=== PATIENT | male | born 1945 | race Caucasian/White ===

== ENCOUNTER 2025-04-26 10:49 | Outpatient (AMB) | payer MEDICARE, SELFPAY ==
--- NOTE | 2025-04-26 10:58 | A.OFFPC_ITS ---
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: No Accompanied by: Self / Same As Patient Allergies No Known Allergies Allergy (Verified 04/26/25 11:25) Medication List - Last Reconciled 04/30/25 by MÓNICA Farnsworth atorvastatin 80 mg PO DAILY clopidogrel 75 mg PO DAILY fluoxetine 30 mg PO DAILY furosemide 20 mg PO DAILY loratadine 10 mg PO DAILY metoprolol tartrate 25 mg PO DAILY tamsulosin 0.4 mg PO BEDTIME zolpidem 10 mg PO BEDTIME Tobacco use date assessed: 04/26/25 Fall risk assessment: No Falls in past year Last assessed Fall Risk: 04/26/25 Dental Screening Dental Screen Date: 04/26/25 Did you have a dental visit in the last 12 months?: No Did you have a dental problem in the last 6 months where you did not have access to dental care?: No Was dental information given to patient?: No (Dentures) HPI establish care HPI Details [facility]: [facility], he is going see another person at the [facility] Last visit:reports that his last visit was about a month or 2 ago Last PE: Specialist: OBGYN: Past medical history: pacemaker and valve replacement-not sure which valve it was; this was done a [facility], Depression-see a psychiatrist at the [facility] (Percy Kelley), Reports that he had two stents placed as well Medications: Family HX:Father of a MA at age 79-reports that he has been taking an aspirin everyday ever since Problem: Reports passing out before thanksgiving at home, at [employer] while putting the cart away, reports that he did not 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 Reports that he has not passed out since pacemaker placement. He was also having trouble breathing, but not anymore since interventions. He is having difficulty finding food without salt. Reports a fluctuation in blood pressure and weight, he went from 236 to 240 and has been varying everyday. They told him not to gain more than 5 lbs in a week. He has been weighing himself every and checking his blood pressure every morning. Plastics Scientist: [facility], affiliated with [facility]. The patient has an appt right after this appt, blood pressure was slightly elevated, no changes due to the patient was rushing for this appt and he is going to see his locomotive inspector after, who knows the patient longer and could changes if needs be. States that he has sleep apnea very bad but he gave his CPAP away because he could sleep with it. He gave it to someone who needs it more than he did. 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 No sob/chest pain or dizziness Denies palpitations Ongoing increased urination at night-he is on lasix 20 mg daily and has BPH [facility] Medical History (Updated 04/30/25 @ 19:33 by MÓNICA Farnsworth) HTN (hypertension) Insomnia Sleep apnea Depression Bradycardia Family History (Updated 04/30/25 @ 19:02 by MÓNICA Farnsworth) Father Myocardial infarction Social History Housing: House Patient Tobacco Use Status: Never used Tobacco e-Cigarette/Vaping Use: Never Used service: Yes Current occupational status: retired and disabled Cognitive needs: No Hearing needs: No Vision needs: No Questionnaire PHQ-9 Over the last 2 weeks, how often have you been bothered by any of the following problems? 1. Little interest or pleasure in doing things: not at all 2. Feeling down, depressed, or hopeless: not at all 3. Trouble falling or staying asleep, or sleeping too much: several days 4. Feeling tired or having little energy: several days 5. Poor appetite or overeating: not at all 6. Feeling bad about yourself - or that you are a failure or have let yourself or your family down: not at all 7. Trouble concentrating on things, such as reading the newspaper or watching television: not at all 8. Moving or speaking so slowly that other people could have noticed. Or the opposite - being so fidgety or restless that you have been moving around a lot more than usual: not at all 9. Thoughts that you would be better off or of hurting yourself in some way: not at all Total score: 2 Depression Screening Interpretation: Negative Depression Screening Done: Yes 36057 - PHQ-9 Billing: Yes Source: Developed by Drs. Carlos Chester, Annemarie Whitt, Sebastien Vazquez and colleagues, with an educational christine from [employer]. Thrive Questionnaire Date Thrive assessed: 04/26/25 I am a: Patient What is your living situation today?: I have a steady place to live Within the past 12 months, did the food you bought not last and you didn't have the money to get more?: Never true Within the past 12 months, did you worry whether your food would run out before you got money to buy more?: Never true Do you have trouble paying for medicines?: No Do you have trouble getting transportation to medical appointments?: No Do you have trouble paying your heating and electricity bill?: No Do you have trouble taking care of your child, family member or friend?: No Do you have trouble with day-to-day activities such as bathing, preparing meals, shopping, managing finances, etc.?: No Are you currently unemployed and looking for a job?: No Are you interested in more education?: No Please select the resources that you would like help with: None Currently or been in a relationship where the following occur: No concerns reported THRIVE Score: 0 AUDIT C Alcohol Use Questionnaire (AUDIT-C) 1. How often do you have a drink containing alcohol?: Never 3. How often do you have six or more drinks on one occasion?: Never Total Score: 0 MARQUISE-7 AMB Questionnaire MARQUISE-7 Date MARQUISE - 7 assessed: 04/26/25 Feeling nervous, anxious, or on edge: 0 = Not at all Not being able to stop or control worryin = Not at all Worrying too much about different things: 0 = Not at all Trouble relaxin = Not at all Being so restless that it is hard to sit still: 0 = Not at all Becoming easily annoyed or irritable: 0 = Not at all Feeling afraid as if something awful might happen: 0 = Not at all Total MARQUISE-7 score (0-4 normal; 5-9 mild; 10-14 moderate; 15-21 severe): 0 Source: Developed by Drs. Carlos Chester, Annemarie Whitt, Sebastien Vazquez and colleagues, with an educational christine from [employer]. MARQUISE-7 Assessment Billing MARQUISE-7 Assessment Tool: MARQUISE-7 Assessment 38175 Review of Systems Const Reports difficulty sleeping and Denies headache(s) Eyes Denies loss of vision ENT Denies vertigo, Denies dizziness, Denies headache(s) and Denies sore throat Card Denies chest pain, Denies leg edema and Denies lightheadedness Resp Denies cough, Denies hemoptysis and Denies wheezing GI Denies abdominal pain, Denies melena, Denies constipation, Denies diarrhea and Denies vomiting Denies dysuria, Reports nocturia, Denies urinary frequency and Denies urinary urgency Musc Denies arthralgias, Denies joint swelling, Denies numbness and Denies tingling Neuro Denies Abnormal speech present, Denies behavioral changes, Denies vertigo, Denies dizziness, Denies headache(s), Denies loss of vision, Denies memory loss, Denies numbness and Denies tingling Psych Denies anxiety, Denies behavioral changes, Reports depression (History improved on treatment), Denies memory loss and Denies panic attacks Greg/Lymph Denies easy bleeding and Denies easy bruising Aller/Immun Denies wheezing Physical exam (Primary Care) Vital Signs: Last Vital Signs Temp 97.3 F 04/26/25 10:59 Pulse 69 04/26/25 10:59 BP 148/82 H 04/26/25 10:59 Pulse Ox 93 04/26/25 10:59 Oxygen Delivery Method Room Air 04/26/25 10:59 BMI result Body Mass Index 37.9 Tobacco/Smoking Status: Tobacco use Status Tobacco use date assessed 04/26/25 04/26/25 11:08 Patient Tobacco Use Status Never used Tobacco 04/26/25 11:08 e-Cigarette/Vaping Use Never Used 04/26/25 11:08 PHQ-9: PHQ-9 Score PHQ-9: Total score 2 04/26/25 11:39 Depression Screening Interpretation: Negative Thrive Assessment: Date of Thrive Assessment Date Thrive assessed 04/26/25 04/26/25 11:08 Currently or been in a relationship where the following occur: No concerns reported Const General: healthy appearing, no acute distress, alert and awake Nutritional Appearance: well nourished Orientation/consciousness: oriented to person, oriented to place and oriented to time HENMT Ears: TM's normal bilaterally General nose exam: Normal nasal mucous membranes and turbinates present Eyes Conjunctivae: conjunctivae normal Sclerae: sclerae normal Pupils: Equal, round and reactive pupils present Neck Neck: Yes no lymphadenopathy and Yes no JVD Thyroid: Thyroid normal Carotids: no bruits Resp Effort & Inspection: normal respiratory effort and not tachypneic Auscultation: no crackles, no rales, no rhonchi and no wheezes Cardio Rate: regular rate Rhythm: regular rhythm Heart sounds: no murmurs and normal S1 and S2 GI Palpation (GI): Soft to palpation, nontender, no hepatomegaly and no splenomegaly Auscultation: normal bowel sounds Skin General skin exam: no rashes or lesions noted and dry skin Neuro General: oriented to person, oriented to place and oriented to time Cranial nerves: Yes Equal, round and reactive pupils present Speech: No Abnormal speech present Gait exam (Neuro): Normal gait present Motor exam (neuro): no tremor noted Extrem Right upper extremity: full ROM Left upper extremity: full ROM Right lower extremity: full ROM; no edema Left lower extremity: full ROM; no edema Psych Mental Status: mental status grossly normal Speech and movement: Normal speech and movement present Affect: normal affect Attitude: cooperative Thought process: Normal thought process present Coding Level of Care Code New Pt Level 4 (66113) Diagnoses Pacemaker Z95.0 Coronary artery disease involving [place] heart without angina pectoris, unspecified vessel or lesion type I25.10 Coronary Disease-Associated Artery/Lesion type: unspecified vessel or lesion type [place] vs. transplanted heart: [place] heart Associated angina: without angina Heart failure, unspecified HF chronicity, unspecified heart failure type I50.9 Heart failure type: unspecified Heart failure chronicity: unspecified Hypertension, unspecified type I10 Hypertension type: unspecified Depression, unspecified depression type F32.A Depression Type: unspecified Benign prostatic hyperplasia, unspecified whether lower urinary tract symptoms present N40.0 Lower urinary tract symptom presence: unspecified whether lower urinary tract symptoms present Insomnia, unspecified type G47.00 Insomnia type: unspecified Sleep apnea, unspecified type G47.30 Sleep apnea type: unspecified type Additional Codes MARQUISE-7 Assessment Billing - MARQUISE-7 Assessment Tool: MARQUISE-7 Assessment 23397 ([id number]) PHQ-9 - 46009 - PHQ-9 Billing: Yes ([id number]) Time Spent (min) 45 Assessment & Plan Assessment & Plan (1) Pacemaker: Code(s): Z95.0 - Presence of cardiac pacemaker Category: Medical Plan: Reports history of bradycardia that resulted multiple syncope episodes. (2) CAD (coronary artery disease): Code(s): I25.10 - Atherosclerotic heart disease of [place] coronary artery without angina pectoris Category: Medical Qualifiers: Coronary Disease-Associated Artery/Lesion type: unspecified vessel or lesion type [place] vs. transplanted heart: [place] heart Associated angina: without angina Qualified Code(s): I25.10 - Atherosclerotic heart disease of [place] coronary artery without angina pectoris Plan: The patient is unclear on the specifics. Reports receiving 2 stents unsure of placement location and reason why they were placed, we will wait for the patient records for further determination. He is followed by [facility] Cardiology and has an appointment after this visit Continue atorvastatin 80 mg daily, clopidogrel 75 mg daily, metoprolol tartrate 25 mg daily (3) Heart failure: Code(s): I50.9 - Heart failure, unspecified Category: Medical Qualifiers: Heart failure type: unspecified Heart failure chronicity: unspecified Qualified Code(s): I50.9 - Heart failure, unspecified Plan: Reports that he was told to not gain more than 5 lb in a week and was placed on Lasix 20 mg daily Suspect that the patient has heart failure, however he was not completely sure about this, awaiting records to clarify. No pedal or lower leg edema. Continue furosemide 20 mg daily. The patient reports recent labs through the [facility], he plans obtaining these labs or having his records sent to us. A comprehensive set of labs ordered to further evaluate (4) HTN (hypertension): Code(s): I10 - Essential (primary) hypertension Category: Medical Qualifiers: Hypertension type: unspecified Qualified Code(s): I10 - Essential (primary) hypertension Plan: Blood pressure is 148/82 in office. Reports med compliance. Reinforced dash diet No changes made to medication; the patient we will be seeing Cardiology after this appointment. We will defer to Cardiology to make changes, due to meeting the patient for the 1st time and he is unclear of his diagnosis and treatment planned. Continue metoprolol tartrate 25 mg daily and furosemide 20 mg daily (5) Depression: Code(s): F32.A - Depression, unspecified Category: Medical Qualifiers: Depression Type: unspecified Qualified Code(s): F32.A - Depression, unspecified Plan: Encouraged CBT Continue fluoxetine 30 mg daily Follow up with Psychiatry as scheduled ([facility]cy Kelley at the [facility]) (6) BPH (benign prostatic hyperplasia): Code(s): N40.0 - Benign prostatic hyperplasia without lower urinary tract symptoms Category: Medical Qualifiers: Lower urinary tract symptom presence: unspecified whether lower urinary tract symptoms present Qualified Code(s): N40.0 - Benign prostatic hyperplasia without lower urinary tract symptoms Plan: Continue tamsulosin 0.4 mg p.o. at bedtime (7) Insomnia: Code(s): G47.00 - Insomnia, unspecified Category: Medical Qualifiers: Insomnia type: unspecified Qualified Code(s): G47.00 - Insomnia, unspecified Plan: Sleep hygiene: Exercise regularly, but not within 4 hour of bedtime. Limit fluid intake and avoid large meals in the evening hours. Limit overall caffeine, tobacco, and alcohol intake; no night cap. Maintain a regular sleep- wake cycle without naps in the daytime. Lie down to sleep only when feeling sleepy; leave the bed if unable to fall asleep within 20 minutes; stay in bed for only the hours actually sleeping(but not less than 5 hour in 24 hours). Continue zolpidem 10 mg at bedtime (8) Sleep apnea: Code(s): G47.30 - Sleep apnea, unspecified Category: Medical Qualifiers: Sleep apnea type: unspecified type Qualified Code(s): G47.30 - Sleep apnea, unspecified Plan: Reports difficulty using CPAP machine, so he gave it away to someone who needed it more than he did. Unclear if this is part of the reason for the patient insomnia. He is adamant about sleeping better without the CPAP machine and that his sleeping issues is solely related to not having the right regimen. Plan Labs were ordered for the patient to complete as soon as possible to further evaluate his conditions. Patient to return in 3 months for evaluation of his chronic conditions. Orders: Orders Complete Blood Count Auto Diff 04/26/25 Z00.00 - Encounter for general adult medical examination without abnormal findings UA CC w/rflx Micro + Cult 04/26/25 Z00.00 - Encounter for general adult medical examination without abnormal findings TSH reflex Free T4 04/26/25 Z00.00 - Encounter for general adult medical examination without abnormal findings Vitamin D 25-OH Total 04/26/25 Z00.00 - Encounter for general adult medical examination without abnormal findings Glucose Fasting 04/26/25 Z00.00 - Encounter for general adult medical examination without abnormal findings Comprehensive [place]. Panel Fast 04/26/25 Z00.00 - Encounter for general adult medical examination without abnormal findings Lipid Panel 04/26/25 Z00.00 - Encounter for general adult medical examination without abnormal findings Medications: New furosemide 20 mg PO DAILY 30 tabs 2RF
[2025-04-26 10:59] VITALS: BP 148/82; PULSE 69; TEMP 36.3; O2SAT 93; BMI 37.9
== END 2025-04-26 11:52 | disposition home or self-care (01) ==
LOC: HO.HMCH 10:49
DX: I11.0 Hypertensive heart disease with heart failure (principal); I50.9 Heart failure, unspecified; Z95.0 Presence of cardiac pacemaker; I25.10 Atherosclerotic heart disease of native coronary artery without angina pectoris; F32.A Depression, unspecified; N40.0 Benign prostatic hyperplasia without lower urinary tract symptoms; G47.00 Insomnia, unspecified; G47.30 Sleep apnea, unspecified

== ENCOUNTER → 2025-04-26 10:49 | Outpatient (BNVA) | payer MEDICARE, SELFPAY | DX: I25.10 Atherosclerotic heart disease of native coronary artery without angina pectoris (principal); I11.0 Hypertensive heart disease with heart failure; I50.9 Heart failure, unspecified; F32.A Depression, unspecified; N40.0 Benign prostatic hyperplasia without lower urinary tract symptoms; G47.00 Insomnia, unspecified; G47.30 Sleep apnea, unspecified; Z79.899 Other long term (current) drug therapy; Z95.0 Presence of cardiac pacemaker | CPT/HCPCS: 96127; 99202 ==

== ENCOUNTER 2025-07-27 09:49 | Outpatient (AMB) | payer MEDICARE, SELFPAY ==
--- OUTSIDE RECORDS SUMMARY | 2024-11-09 07:30 | XMS_ITS | Encounter Summary ---
Author Name [facility] [place] Organization [facility] [place] Address [address] [place] [id number] Care Team Providers Care Scada Engineer Name Role Phone TAO CEE Primary Care Provider Unavailabl e Insurance Providers: All historical and current Section Date Range: From patient's date of to the date document was created. This section includes the names of all active insurance providers for the patient. Insurance Provider Type of Coverage Plan Name Start of Policy Coverage End of Policy Coverage Group Number Member ID Insurance Provider's Telephone Number Policy Delacruz's Name Patient's Relationship to Policy Delacruz [facility] (WNR) MEDICARE ADVANTAGE [facility] ([facility]) Feb 29, 2012 [id number] E[address] SCHNEIDER JR PATIENT Selected Encounter This section includes the information on record at [place] for the Encounter. Date/Time Encounter Type Encounter Description Reason Provider Source Nov 09, 2024 11:30 AM OFFICE O/P EST HI 40 MIN PRIMARY CARE/MEDICINE ICD-10-CM K70.30 Alcoholic cirrhosis of liver without ascites TAO CEE Encounter Template Text not used by [place] Assessments - Encounter Diagnoses This section includes the primary and secondary diagnoses documented for the Encounter. Date/Time Primary/Secondary Diagnosis Diagnosis Name Provider Source Nov 26, 2024 04:42 PM PRIMARY Alcoholic cirrhosis of liver without ascites TAO CEE Nov 26, 2024 04:42 PM SECONDARY Alcohol dependence, in remission TAO CEE Nov 26, 2024 04:42 PM SECONDARY Alcoholic fibrosis and sclerosis of liver TAO CEE [place] Nov 26, 2024 04:42 PM SECONDARY Hepatic fibrosis with hepatic sclerosis TAO CEE [place] Nov 26, 2024 04:42 PM SECONDARY Syncope and collapse TAO CEE [place] Plan of Treatment: Future Appointments (+ 6 months) and Future Tests (+/- 45 days) The Plan of Treatment section includes future care activities for the patient from all [place] [facility]. This section includes future appointments and future orders which are active, pending or scheduled. Future Appointments This section includes appointments that were scheduled to occur 6 months from the date of the Encounter, up to a maximum of 20 appointments. The data comes from all [facility] facilities. Appointment Date/Time Appointment Type Appointme nt Facility Name Nov 16, 2024 04:00 PM AMBULATORY - [place]ICINE [place] [facility] [place] [facility] Nov 16, 2024 04:30 PM AMBULATORY - MEDICINE [place] [facility] [place] [facility] Dec 02, 2024 09:00 AM AMBULATORY - NONE [place] [facility] [place] [facility] Dec 05, 2024 10:30 AM AMBULATORY - NONE [place] [facility] [place] [facility] Jan 03, 2025 11:15 AM AMBULATORY - MEDICINE [place] [facility] [place] [facility] Jan 17, 2025 02:10 PM AMBULATORY - MEDICINE [place] [facility] [place] [facility] Feb 23, 2025 10:00 AM AMBULATORY - MEDICINE [facility] April 05, 2025 10:00 AM AMBULATORY - PSYCHIATRY [facility] April 10, 2025 10:30 AM AMBULATORY - MEDICINE [facility] Vital Signs: All taken on the encounter date This section contains inpatient and outpatient Vital Signs collected on the date of the Encounter. Date/Time Temperature Pulse Blood Pressure Respiratory Rate SP02 Pain Height Weight Body Mass Index Source Nov 09, 2024 11:41 AM 97.9 80 135/81 19 95 67 248 39 [facility] IE Social History: Smoking Status (Most current) and Tobacco Use (All prior to encounter date) This section includes the most current, and the historical, smoking and tobacco- related health factors from the [place] facility where the Encounter took place. Current Smoking Status This section includes the most current smoking, or tobacco-related health factor, from the [place] facility where the Encounter took place. Date/Time Current Smoking Status Comment Nettie ity March 31, 2022 10:00 AM VA-TOBACCO NEVER USED [facility] Tobacco Use History This section includes a history of the smoking, or tobacco-related health factors, that were collected on or before the date of the Encounter. The data comes from the [place] facility where the Encounter took place. Date/Time Smoking Status/Tobacco Use Comment F acility April 17, 2021 02:00 PM VA-TOBACCO NEVER USED [facility] Feb 29, 2020 07:04 PM VA-TOBACCO NEVER USED [facility] Dec 03, 2018 09:47 AM VA-TOBACCO NEVER USED [facility] April 05, 2018 09:02 AM LIFETIME NON-TOBACCO USER [facility] April 14, 2017 04:22 PM LIFETIME NON-TOBACCO USER [facility] March 31, 2016 01:02 PM LIFETIME NON-TOBACCO USER [facility] Nov 18, 2010 01:13 PM LIFETIME NON-TOBACCO USER [facility] Advance Directives: All historical and current Section Date Range: From patient's date of to the date document was created. This section includes ALL of a patient's completed or amended [place] Advance and Rescinded Directives. The entries below indicate that a directive exists for the patient, but an actual copy is not included with this document. The data comes from all [place] facilities. Date Advance Directives Provider Source Jan 20, 2025 ADVANCE DIRECTIVE GENNA MELENDEZ Radiology Reports: +/- 30 days of the encounter Radiology Reports For cases when an order for radiology services may have been completed prior to the date of the Encounter, the report list includes the Radiology Reports that were completed up to 30 days before dateof the Encounter. For cases when an order for radiology services may have been completed after the date of the Encounter, the report list also includes the Radiology Reports that were completed up to30 days after date of the Encounter. The data comes from all [place] treatment facilities. Date/Time Radiology Report Provider Source Dec 05, 2024 10:22 AM DUPLEX SCAN: NON-I NVAS. CAROTID IMAGING: EILEEN SCHNEIDER [id number] -1945 M Exm Date: DEC 05, 2024@10:22 Req Phys: TAO CEE Loc: CWM/SO/PACT 7 (Req'g Loc) Img Loc: ULTRASOUND Service: [facility] [place] [address] (Case 31 COMPLETE) DUPLEX SCAN: NON-INVAS. CAROTID I(US Detailed) CPT:39551 Reason for Study: recent syncopal episode Clinical History: Report Status: Verified Date Reported: DEC 05, 2024 Date Verified: DEC 05, 2024 Efficiency Engineer E-Sig:/ES/DIANA COLLINS Report: Accession number: [id number] Exam: EXTRACRANIAL BILAT STUDY Comparison\H\:\N\ No direct comparison available. Reason for Study: recent syncopal episode. FINDINGS\H\:\N\ Multiple sonographic images of the carotid arteries. RIGHT: Atherosclerotic plaque at the distal common carotid artery, and proximal internal and external carotid arteries. Proximal common carotid peak systolic velocity: 78 cm/s, end diastolic velocity: 12 cm/s Distal common carotid peak systolic velocity: 50 cm/s, end diastolic velocity: 9 cm/s Proximal internal carotid peak systolic velocity: 60 cm/s, end diastolic velocity: 13 cm/s Distal internal carotid peak systolic velocity: 59 cm/s, end diastolic velocity: 17 cm/s Internal carotid/common carotid peak systolic velocity ratio: 0.8 External carotid artery peak systolic velocity: 101 cm/s, end diastolic velocity: 12 cm/s Vertebral artery peak systolic velocity: 31 cm/s, end diastolic velocity: 11 cm/s, antegrade LEFT: Atherosclerotic plaques at the distal common carotid artery, and proximal internal and external carotid arteries. Proximal common carotid peak systolic velocity: 91 cm/s, end diastolic velocity: 22 cm/s Distal common carotid peak systolic velocity: 75 cm/s, end diastolic velocity: 21 cm/s Proximal internal carotid peak systolic velocity: 129 cm/s, end diastolic velocity: 27 cm/s Distal internal carotid peak systolic velocity: 115 cm/s, end diastolic velocity: 27 cm/s Internal carotid/common carotid peak systolic velocity ratio: 1.4 External carotid artery peak systolic velocity: 183 cm/s, end diastolic velocity: 17 cm/s Vertebral artery peak systolic velocity: 45 cm/s, end diastolic velocity: 15 cm/s, antegrade Impression: Right carotid atherosclerosis with less than 50% right internal carotid artery stenosis. Left carotid atherosclerosis with 50-60% left internal carotid artery stenosis. Report signed on: 12/05/2024 3:31 PM Primary Diagnostic Code: No immediate attention required Primary Interpreting Staff: DIANA COLLINS, Staff Physician (Efficiency Engineer) / DIANA COLLINS [place] [facility] Encounter Notes: All associated encounter notes This section contains the clinical notes associated to the Encounter. Date/Time Encounter Note(s) Provider Source Dec 09, 2024 11:24 AM ADDENDUM: LOCAL TITLE: Addendum STANDARD TITLE: ADDENDUM DATE OF NOTE: DEC 09, 2024@11:24:18 ENTRY DATE: DEC 09, 2024@11:24:19 AUTHOR: JOANNA ROMO EXP COSIGNER: URGENCY: STATUS: COMPLETED The [place] has not been contacted about the results of his echo and the reason for Cardiology referral. Plese contact him to discusss, thank you. /reji/ JOANNA ROMO RN Referral Coordination Initiative Nurse Signed: 12/09/2024 11:25 Receipt Acknowledged By: 12/09/2024 13:34 /reji/ ERIK COOLEY CERTIFIED NURSE PRACTITIONER 12/09/2024 14:52 /reji/ KAYLA SANDY RN REGISTERED NURSE --- Original Document --- 11/09/24 NURSE PRACTITIONER OUTPATIENT NOTE: PRIMARY CARE VISIT EILEEN SCHNEIDER, is a 79 y/o WHITE MALE [place] who [facility] today [facility] the [place] [facility]. TYPE OF VISIT: Face to face Accompanied by daughter today. HPI: recently hospitalized for syncope - diagnostics showed mild decrease in platelets, CT showed cirhosis and portal HTN. CT also showed mass of brain - uncertain etiology but possible meningioma not r/o. Denies PEÑA, changes in vision or cognition. States he had N/V and passed out, hit head prior to going to ED. Has been having frequent nosebleeds over past couple of months. Reports abdominal bloating and fullness, no pain or N/V today. BM normal. Previous abdominal US 12/25/20 showed liver fibrosis. Labs 08/25/24 - AST 63, TG 160, otherwise wnl. Hx ETOH, quit 2018. Non smoker. Recent labs reviewed and all medications were reconciled during this visit. 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 Obese. Mental Status: Alert and oriented x4. Head: Normocephalic, atraumatic. Eyes: PERRL. EOMI. Anicteric sclerae. Neck: Supple. No JVD. No lymphadenopathy. No carotid bruit. Thyroid unremarkable. Lungs: CTAB. Normal chest excursion. Eupneic respirations. CV: Heart tones S1, S2. RRR. 3/6 NICOLE. No peripheral edema. GI: Abdomen is distended, mild ascites noted, nontender. No palpable mass or organomegaly. BS x 4 normal. : No CVA tenderness. Neuro: CN II through XII grossly intact. Normal speech. No tremors. Normal gait. Psych: Normal mood and affect. Normal judgment. Cooperative with exam, follows commands. ALLERGIES: Patient has answered [facility] [employer] - see end of note PREVENTIVE MEDICINE GOALS Medication Reconciliation DUE NOW (Optional) Whole Health Documentation DUE NOW ASSESSMENT/PLAN: Active problems - Computerized Problem List is the source for the followin. syncope - CT showed possible meningioma. PET, carotid US and Echo ordered. Referral made to neurology. 2. cirrhosis, liver fibrosis - PET ordered, referral made to hepatology. 3. H/O: alcoholism. Quit 2018 4. Liver function tests abnormal - see above. FOLLOW UP: Return to clinic as noted below and/or sooner PRN UPCOMING APPOINTMENTS: 12/28/2024 11:00 SPOPC/MHC/[facility] 02/23/2025 10:00 CWM/SO/PACT 7 10/09/2025 11:00 NHM/OPTOMETRY/BORASKI No barriers noted; patient understands and agrees to current treatment plan. If patient has any questions, concerns or changes in current health status he/she will call or come in to the VA. A total of 45 minutes were spent F2F with the patient during this encounter and over half that time was spent on counseling and coordination of care. We discussed in depth all current health conditions and management of these conditions. HM: Medication Reconciliation: Outpatient: Has the patient been taking medications as documented in the EMLR? YES: The patient has been taking medications as documented in the EMLR. Essential Medication List for Review used to complete this medication reconciliation. INCLUDED IN THIS LIST: Alphabetical list of active outpatient prescriptions dispensed from this [facility] (local) and dispensed from another [place] or [facility] facility (remote) as well as inpatient orders (local, pending and active), local clinic medications, locally documented non-VA medications, and local prescriptions that have or been discontinued in the past 90 days. - All changes in medications, including all non-VA/Herbal/OTC medications were entered into CPRS. - If there were any medications the patient should no longer take, they were discontinued. - The patient/caregiver was instructed to update this list, discard old lists, and take this list to the next appointment, whether with a VA or non-VA provider. /ERIK Anderson CERTIFIED NURSE PRACTITIONER Signed: 11/26/2024 16:42 12/03/2024 ADDENDUM STATUS: COMPLETED Please notify patient his echo showed severe stenosis of one his his heart valves. I have made a referral to cardiology. /ERIK Anderson CERTIFIED NURSE PRACTITIONER Signed: 12/03/2024 13:54 12/09/2024 ADDENDUM STATUS: COMPLETED Called and spoke to . Forwarded PCP's message. understands and agrees with follow up treatment plan. /reji/ KAYLA SANDY RN REGISTERED NURSE Signed: 12/09/2024 14:52 JOANNA ROMO Nov 09, 2024 12:03 PM PRIMARY CARE NURSE PRACTITIONER OUTPATIENT NOTE: LOCAL TITLE: NURSE PRACTITIONER OUTPATIENT NOTE STANDARD TITLE: PRIMARY CARE NURSE PRACTITIONER OUTPATIENT NOTE DATE OF NOTE: NOV 09, 2024@12:03 ENTRY DATE: NOV 09, 2024@12:03:43 AUTHOR: TAO CEE EXP COSIGNER: URGENCY: STATUS: COMPLETED NURSE PRACTITIONER OUTPATIENT NOTE Has ADDENDA PRIMARY CARE VISIT EILEEN SCHNEIDER, is a 79 y/o WHITE MALE [place] who [facility] today at the [place] [facility]. TYPE OF VISIT: Face to face Accompanied by daughter today. HPI: recently hospitalized for syncope - diagnostics showed mild decrease in platelets, CT showed cirhosis and portal HTN. CT also showed mass of brain - uncertain etiology but possible meningioma not r/o. Denies PEÑA, changes in vision or cognition. States he had N/V and passed out, hit head prior to going to ED. Has been having frequent nosebleeds over past couple of months. Reports abdominal bloating and fullness, no pain or N/V today. BM normal. Previous abdominal US 12/25/20 showed liver fibrosis. Labs 08/25/24 - AST 63, TG 160, otherwise wnl. Hx ETOH, quit 2018. Non smoker. Recent labs reviewed and all medications were reconciled during this visit. 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 Obese. Mental Status: Alert and oriented x4. Head: Normocephalic, atraumatic. Eyes: PERRL. EOMI. Anicteric sclerae. Neck: Supple. No JVD. No lymphadenopathy. No carotid bruit. Thyroid unremarkable. Lungs: CTAB. Normal chest excursion. Eupneic respirations. CV: Heart tones S1, S2. RRR. 3/6 NICOLE. No peripheral edema. GI: Abdomen is distended, mild ascites noted, nontender. No palpable mass or organomegaly. BS x 4 normal. : No CVA tenderness. Neuro: CN II through XII grossly intact. Normal speech. No tremors. Normal gait. Psych: Normal mood and affect. Normal judgment. Cooperative with exam, follows commands. ALLERGIES: Patient has answered [facility] [employer]INTENANCE - see end of note PREVENTIVE MEDICINE GOALS Medication Reconciliation DUE NOW (Optional) Whole Health Documentation DUE NOW ASSESSMENT/PLAN: Active problems - Computerized Problem List is the source for the followin. syncope - CT showed possible meningioma. PET, carotid US and Echo ordered. Referral made to neurology. 2. cirrhosis, liver fibrosis - PET ordered, referral made to hepatology. 3. H/O: alcoholism. Quit 2018 4. Liver function tests abnormal - see above. FOLLOW UP: Return to clinic as noted below and/or sooner PRN UPCOMING APPOINTMENTS: 12/28/2024 11:00 SPOPC/MHC/[place] 02/23/2025 10:00 CWM/SO/PACT 7 10/09/2025 11:00 NHM/OPTOMETRY/BORASKI No barriers noted; patient understands and agrees to current treatment plan. If patient has any questions, concerns or changes in current health status he/she will call or come in to the VA. A total of 45 minutes were spent F2F with the patient during this encounter and over half that time was spent on counseling and coordination of care. We discussed in depth all current health conditions and management of these conditions. HM: Medication Reconciliation: Outpatient: Has the patient been taking medications as documented in the EMLR? YES: The patient has been taking medications as documented in the EMLR. Essential Medication List for Review used to complete this medication reconciliation. INCLUDED IN THIS LIST: Alphabetical list of active outpatient prescriptions dispensed from this VA (local) and dispensed from another [place] or [facility] facility (remote) as well as inpatient orders (local, pending and active), local clinic medications, locally documented non-VA medications, and local prescriptions that have or been discontinued in the past 90 days. - All changes in medications, including all non-VA/Herbal/OTC medications were entered into CPRS. - If there were any medications the patient should no longer take, they were discontinued. - The patient/caregiver was instructed to update this list, discard old lists, and take this list to the next appointment, whether with a VA or non-VA provider. /reji/ ERIK COOLEY CERTIFIED NURSE PRACTITIONER Signed: 11/26/2024 16:42 12/03/2024 ADDENDUM STATUS: COMPLETED Please notify patient his echo showed severe stenosis of one his his heart valves. I have made a referral to cardiology. /ERIK Anderson CERTIFIED NURSE PRACTITIONER Signed: 12/03/2024 13:54 12/09/2024 ADDENDUM STATUS: COMPLETED The [place] has not been contacted about the results of his echo and the reason for Cardiology referral. Plese contact him to discusss, thank you. /reji/ JOANNA ROMO RN Referral Coordination Initiative Nurse Signed: 12/09/2024 11:25 Receipt Acknowledged By: 12/09/2024 13:34 /reji/ ERIK COOLEY CERTIFIED NURSE PRACTITIONER 12/09/2024 14:52 /reji/ KAYLA SANDY RN REGISTERED NURSE 12/09/2024 ADDENDUM STATUS: COMPLETED Called and spoke to [place]. Forwarded PCP's message. [place] understands and agrees with follow up treatment plan. /reji/ KAYLA SANDY RN REGISTERED NURSE Signed: 12/09/2024 14:52 TAO CEE
--- OUTSIDE RECORDS SUMMARY | 2024-12-02 13:00 | XMS_ITS | Encounter Summary ---
Author Name [facility] of [place] [place] Organization [place] Address [address] [place] [address] Care Team Providers Care Cut Off Machine Helper Name Role Phone TAO CEE Primary Care [...] Name Patient's Relationship to Policy Delacruz [facility] ([facility]) MEDICARE ADVANTAGE [facility] ([facility]) Feb 29, 2012 [id number] EILEEN SCHNEIDER JR PATIENT Selected Encounter This section includes the information on record at [place] for the Encounter. Date/Time Encounter Type Encounter Description Reason Provider Source Dec 02, 2024 05:00 PM OFF/OP EST MARCH X REQ PHY/QHP CARDIAC ECHO ICD-10-CM I35.0 Nonrheumatic aortic (valve) stenosis GEORGE DE LUNA Lori Encounter Template Text not used by [place] Assessments - Encounter Diagnoses This section includes the primary and secondary diagnoses documented for the Encounter. Date/Time Primary/Secondary Diagnosis Diagnosis Name Provider Source Dec 05, 2024 10:48 AM PRIMARY Nonrheumatic aortic (valve) stenosis GEORGE DE LUNA [facility] Plan of Treatment: Future Appointments (+ 6 months) and Future Tests (+/- 45 days) The Plan of Treatment section includes future care activities for the patient from all [place] [facility]. This section includes future appointments and future orders which are active, pending or scheduled. Future Appointments This section includes appointments that were scheduled to occur 6 months from the date of the Encounter, up to a maximum of 20 appointments. The data comes from all [facility] facilities. Appointment Date/Time Appointment Type Appointme nt Facility Name Dec 05, 2024 10:30 AM AMBULATORY - NONE [place] [facility] [place] [facility] Jan 03, 2025 11:15 AM AM[facility]ULATORY [facility] Jan 17, 2025 02:10 PM AMBULATORY - MEDICINE [place] [facility] [place] [facility] Feb 23, 2025 10:00 AM AMBULATORY - MEDICINE [facility] April 05, 2025 10:00 AM AMBULATORY - PSYCHIATRY [facility] April 10, 2025 10:30 AM AMBULATORY - MEDICINE [facility] Advance Directives: All historical and current Section Date Range: From patient's date of to the date document was created. This section includes ALL of a patient's completed or amended [place] Advance and Rescinded Directives. The entries below indicate that a directive exists for the patient, but an actual copy is not included with this document. The data comes from all [facility]. Date Advance Directives Provider Source Jan 20, [...] the Encounter. The data comes from all [place] treatment facilities. Date/Time Radiology Report Provider Source Dec 05, 2024 10:22 AM DUPLEX SCAN: NON-I NVAS. CAROTID IMAGING: ANDRERODYEILEEN MCINTOSH [id number] -1945 M Exm Date: DEC 05, 2024@10:22 Req Phys: TAO CEE Pat Loc: CWM/SO/PACT 7 (Req'g Loc) Img Loc: ULTRASOUND Service: Unknown [place] [facility] [place] [address] (Case 31 COMPLETE) DUPLEX SCAN: NON-INVAS. CAROTID I(US Detailed) CPT:01042 Reason for Study: recent syncopal episode Clinical History: Report Status: Verified Date Reported: DEC 05, 2024 Date Verified: DEC 05, 2024 Community Health Nurse Staff E-Sig:/ES/DIANA COLLINS Report: Accession number: [id number] Exam: EXTRACRANIAL BILAT STUDY Comparison\H\:\N\ No direct [...] Primary Interpreting Staff: DIANA COLLINS, Staff Physician (Community Health Nurse Staff) / DIANA COLLINS [facility] Encounter Notes: All associated encounter notes This section contains the clinical notes associated to the Encounter. Date/Time Encounter Note(s) Provider Source Dec 02, 2024 05:00 PM CARDIOLOGY CONSULT : LOCAL TITLE: ECHO CONSULT STANDARD TITLE: CARDIOLOGY CONSULT DATE OF NOTE: DEC 02, 2024@17:00 ENTRY DATE: DEC 02, 2024@17:00:52 AUTHOR: GEORGE DE LUNA EXP COSIGNER: URGENCY: STATUS: COMPLETED Remote echocardiogram read completed. Results available in [facility]. /reji/ George De Luna MD Attending, Cardiology Signed: 12/02/2024 17:01 GEORGE DE LUNA [facility]
--- OUTSIDE RECORDS SUMMARY | 2025-01-03 07:15 | XMS_ITS ---
Author Name [facility] [place] Organization [place] Address [address] [place] [address] Care Team Providers Care Leather Goods I Assembler Name Role Phone TAO CEE Primary Care [...] Name Patient's Relationship to Policy Delacruz [facility]) MEDICARE ADVANTAGE [facility] ([facility]) Feb 29, 2012 [id number] EILEEN SCHNEIDER JR PATIENT Selected Encounter This section includes the information on record at [place] for the Encounter. Date/Time Encounter Type Encounter Description Reason Pro vider Source Jan 03, 2025 11:15 AM Outpatient Encounter COMMUNITY CARE CONSULT IHE Encounter Template Text not used by [place] Plan of Treatment: Future Appointments (+ 6 months) and Future Tests (+/- 45 days) The Plan of Treatment section includes future care activities for the patient from all VA treatmentfacilities. This section includes future appointments and future orders which are active, pending or scheduled. Future Appointments This section includes appointments that were scheduled to occur 6 months from the date of the Encounter, up to a maximum of 20 appointments. The data comes from all [place] treatment facilities. Appointment Date/Time Appointment Type Appointme nt Facility Name Jan 17, 2025 02:10 PM AMBULATORY [facility] Feb 23, 2025 10:00 AM AMBULATORY - MEDICINE [facility] April 05, 2025 10:00 AM AMBULATORY - PSY[facility]IATRY [facility] April 10, 2025 10:30 AM AMBULATORY - MEDICINE [facility] Social History: Smoking Status (Most current) and Tobacco Use (All prior to encounter date) This section includes the most current, and the historical, smoking and tobacco- related health factors from the [place] facility where the Encounter took place. Current Smoking Status This section includes the most current smoking, or tobacco-related health factor, from the [place] facility where the Encounter took place. Date/Time Current Smoking Status Comment Facil ity Mar 04, 2024 01:33 PM VA-TOBACCO NEVER USED [facility] Advance Directives: All historical and current Section Date Range: From patient's date of to the date document was created. This section includes ALL of a patient's completed or amended [place] Advance and Rescinded Directives. The entries below indicate that a directive exists for the patient, but an actual copy is not included with this document. The data comes from all [place] facilities. Date Advance Directives Provider Source Jan [...] the Encounter. The data comes from all [place] treatment facilities. Date/Time Radiology Report Provider Source Dec 05, 2024 10:22 AM DUPLEX SCAN: NON-I NVAS. CAROTID IMAGING: EILEEN SCHNEIDER [id number] -[id number] M Exm Date: DEC 05, 2024@10:22 Req Phys: TAO CEE Loc: CWM/SO/PACT 7 (Req'g Loc) Img Loc: ULTRASOUND Service: Unknown [place] [address] (Case 31 COMPLETE) DUPLEX SCAN: NON-INVAS. CAROTID I(US Detailed) CPT:15130 Reason for Study: recent syncopal episode Clinical History: Report Status: Verified Date Reported: DEC 05, 2024 Date Verified: DEC 05, 2024 Aircraft Air Conditioning Mechanic E-Sig:/ES/DIANA COLLINS Report: Accession number: [id number] Exam: EXTRACRANIAL BILAT STUDY Comparison\H\:\N\ No direct [...] Primary Interpreting Staff: DIANA COLLINS, Staff Physician (Aircraft Air Conditioning Mechanic) / DIANA COLLINS [facility] Encounter Notes: All associated encounter notes This section contains the clinical notes associated to the Encounter. Date/Time Encounter Note(s) Provider Source Dec 20, 2024 11:26 AM ADMINISTRATIVE NOTE: LOCAL TITLE: ADMINISTRATIVE NOTE STANDARD TITLE: ADMINISTRATIVE NOTE DATE OF NOTE: DEC 20, 2024@11:26 ENTRY DATE: DEC 20, 2024@11:26:53 AUTHOR: SUSANNE DIAZ EXP COSIGNER: URGENCY: STATUS: COMPLETED ADMINISTRATIVE NOTE Has ADDENDA Elizabet reached out to CC after literary writer had given him call back information. Elizabet stated that he was in ER for nose bleed on 12/15 (message forwarded to E.R triage [facility] staff). Elizabet also called again to say that he has an upcoming radiology appointment tomorrow 12/21 and is unsure what this appointment is for. [facility] Radiology not showing in CPRS. Elizabet stated that he has developed several new medical problems, and each new problem requires care by a specialist. He states that he is seeing several specialists and is very confused as to his care, as each specialist sends him for tests and treatments and it has become complex. He stated he is having difficulty understanding and its all too confusing to put it all together. He is asking for his Provider to please call to explain his treatment or offer some clarity as to his plan of care. /reji/ SUSANNE DIAZ RN, BSN REGISTERED NURSE Signed: 12/20/2024 11:45 Receipt Acknowledged By: 12/24/2024 14:02 /reji/ ERIK COOLEY CERTIFIED NURSE PRACTITIONER 12/23/2024 12:54 /reji/ KAYLA SANDY RN REGISTERED NURSE 12/23/2024 ADDENDUM STATUS: COMPLETED Called and left a voicemail message for the 's daughter Belinda (auth) to call the clinic back. /reji/ KAYLA SANDY RN REGISTERED NURSE Signed: 12/23/2024 12:55 SUSANNE DIAZ [facility]
--- OUTSIDE RECORDS SUMMARY | 2025-02-23 06:00 | XMS_ITS | Encounter Summary ---
Author Name [facility] [place] Organization [place] Address [address] [place] [id number] Care Team Providers Care Pit Hand Name Role Phone TAO CEE Primary Care [...] Name Patient's Relationship to Policy Delacruz [facility] ([facility]) MEDICARE ADVANTAGE [facility] ([facility]) Feb 29, 2012 [id number] EILEEN SCHNEIDER JR PATIENT Selected Encounter This section includes the information on record at [place] for the Encounter. Date/Time Encounter Type Encounter Description Reason Provider Source Feb 23, 2025 10:00 AM OFFICE O/P EST HI 40 MIN PRIMARY CARE/MEDICINE ICD-10-CM I25.10 Athscl heart disease of [place] coronary artery w/o TAO Harvey Lori Encounter Template Text not used by [place] Assessments - Encounter Diagnoses This section includes the primary and secondary diagnoses documented for the Encounter. 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 TAO Harvey [facility] Mar 09, 2025 01:08 PM SECONDARY Acute diastolic (congestive) heart failure TAO CEE Freddy [facility] Mar 09, 2025 01:08 PM SECONDARY Alcohol dependence, in remission TAO CEE Freddy [facility] Mar 09, 2025 01:08 PM SECONDARY Alcoholic cirrhosis of liver without ascites TAO CEE [facility] Mar 09, 2025 01:08 PM SECONDARY Cough variant asthma TAO CEE Freddy [facility] Mar 09, 2025 01:08 PM SECONDARY Essential (primary) hypertension TAO CEE Freddy [facility] Mar 09, 2025 01:08 PM SECONDARY Heart failure, unspecified TAO CEE Freddy [facility] Mar 09, 2025 01:08 PM SECONDARY Hepatic fibrosis with hepatic sclerosis TAO CEE Freddy [facility] Mar 09, 2025 01:08 PM SECONDARY 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 This section includes future appointments and future orders which are active, pending or scheduled. Future Appointments This section includes appointments that were scheduled to occur 6 months from the date of the Encounter, up to a maximum of 20 appointments. The data comes from all [place] treatment facilities. Appointment Date/Time Appointment Type Appointme nt Facility Name April 05, 2025 10:00 AM AMBULATORY - PSYCHIATRY [facility] April 10, 2025 10:30 AM AMBULATORY - MEDICINE [facility] Vital Signs: All taken on the encounter date This section contains inpatient and outpatient Vital Signs collected on the date of the Encounter. Date/Time Temperature Pulse Blood Pressure Respiratory Rate SP02 Pain Height Weight Body Mass Index Source Feb 23, 2025 10:08 AM 97.6 82 136/85 19 98 67 250 39 [facility] Social History: Smoking Status (Most current) and Tobacco Use (All prior to encounter date) This section includes the most current, and the historical, smoking and tobacco- related health factors from the [place] facility where the Encounter took place. Current Smoking Status This section includes the most current smoking, or tobacco-related health factor, from the [place] facility where the Encounter took place. Date/Time Current Smoking Status Comment Nettie yang March 31, 2022 10:00 AM VA-TOBACCO NEVER USED [facility] Tobacco Use History This section includes a history of the smoking, or tobacco-related health factors, that were collected on or before the date of the Encounter. The data comes from the [place] facility where the Encounter took place. Date/Time Smoking Status/Tobacco Use Comment F acjesse April 17, 2021 02:00 PM VA-TOBACCO NEVER USED [facility] Feb 29, 2020 07:04 PM VA-TOBACCO NEVER USED [facility] Dec 03, 2018 09:47 AM VA-TOBACCO NEVER USED [facility] April 05, 2018 09:02 AM LIFETIME NON-TOBACCO USER [facility] April 14, 2017 04:22 PM LIFETIME NON-TOBACCO USER [facility] March 31, 2016 01:02 PM LIFETIME NON-TOBACCO USER [facility] Nov 18, 2010 01:13 PM LIFETIME NON-TOBACCO USER [facility] Advance Directives: All historical and current Section Date Range: From patient's date of to the date document was created. This section includes ALL of a patient's completed or amended [place] Advance and Rescinded Directives. The entries below indicate that a directive exists for the patient, but an actual copy is not included with this document. The data comes from all [place] facilities. Date Advance Directives Provider Source Jan 20, 2025 ADVANCE DIRECTIVE GENNA MELENDEZ Anshu Encounter Notes: All associated encounter notes This section contains the clinical notes associated to the Encounter. Date/Time Encounter Note(s) Provider Source Feb 23, 2025 09:59 AM PRIMARY CARE NURSE PRACTITIONER OUTPATIENT NOTE: LOCAL TITLE: NURSE PRACTITIONER OUTPATIENT NOTE STANDARD TITLE: PRIMARY CARE NURSE PRACTITIONER OUTPATIENT NOTE DATE OF NOTE: FEB 23, 2025@09:59 ENTRY DATE: FEB 23, 2025@09:59:37 AUTHOR: TAO CEE EXP COSIGNER: URGENCY: STATUS: COMPLETED PRIMARY CARE VISIT EILEEN MARLI SCHNEIDER, is a 80 y/o WHITE MALE [place] who [facility] today at the [place] [facility]. TYPE OF VISIT: Face to face HPI: CAD - hx ND a month ago. Had two stents placed. aortic stenosis - to have TAVR next week. Medication changes noted. Now on high dose statin. On ASA and Plavix as well. Recently diagnosed with acute HF, on diuretic and BB. Is weighing himself daily. Has been working on low salt diet as well. Has home nurse following. Sees cardiology. Has not discussed cardiac rehab yet. Denies CP, palpitations, minimal edema BLE. liver fibrosis, cirrhosis - liver enzymes elevated. Hx ETOH, quit 2018. US 12/25/20 reviewed. Does not want to see specialist right now. hx asthma, c/o occasional wheezing, BOWER. Note recent dx acute exacerbation HF. Does not have inhaler PRN. 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 Urgent referral was made to neuro in October while PET pending but patient declined after being called to schedule. Recent labs reviewed from cardiology: 01/27/25 HGB 11.9 PLT 126 WBC 7.4 ProBNP 800 HSTnT 455 creat 1.32 BUN 23 GFR 55 Na+ 144 K+ 4.4 Mg+ 2.0 All medications were reconciled during this visit. HISTORY: PERIOD OF SERVICE - [facility] FROM Jul TO Jul COMBAT SERVICE INDICATED: No VITAL SIGNS: Blood Pressure: 136/85 (02/23/2025 10:08) Pain: 0 (08/09/2024 08:31) Patient Height: 67 in [170.2 cm] (02/23/2025 10:08) Patient Weight: 250 lb [113.40 kg] (02/23/2025 10:08) Pulse: 82 (02/23/2025 10:08) Respiration: 19 (02/23/2025 10:08) Temperature: 97.6 F [36.4 C] (02/23/2025 10:08) ASSISTIVE DEVICES: none REVIEW OF SYSTEMS: see HPI PHYSICAL EXAMINATION: General: Chronically ill-appearing in no obvious distress. Obese. Mental Status: Alert and oriented x4. Head: Normocephalic, atraumatic. Eyes: PERRL. EOMI. Anicteric sclerae. Neck: Supple. No JVD. No lymphadenopathy. No bruit. Thyroid unremarkable. Lungs: CTAB. Normal chest excursion. Eupneic respirations. CV: Heart tones S1, S2. RRR. 4/6 NICOLE. No peripheral edema. GI: Abdomen is soft and nontender. No palpable mass or organomegaly. : No CVA tenderness. Neuro: CN II through XII grossly intact. Normal speech. Normal gait. Integument: Skin warm and dry. No rashes or lesions on visible areas. Psych: Normal mood and affect. Normal judgment. Cooperative with exam, follows commands. ALLERGIES: Patient has answered [facility]TE[facility]NCE - see end of note PREVENTIVE MEDICINE GOALS Suicide Screen Dec 30 Toxic Exposure Screening Mar 04 Follow Up Colonoscopy Mar 04 Falls & Incontinence Screen Mar 04 Influenza Immunization DUE NOW Medication Reconciliation DUE NOW Alcohol Use Screen (AUDIT-C) Mar 04 COVID-19 Immunization DUE NOW Liver Cancer (HCC) Surveillance Jun 24 RSV Immunization DUE NOW Sexual Orientation Mar 04 (Optional) Whole Health Documentation DUE NOW ASSESSMENT/PLAN: Active problems - Computerized Problem List is the source for the followin. CAD - s/p ND, stent placement. On ASA, followed by cardiology. Would benefit from cardiac rehab, he will discuss with cardiology at upcoming appt. 2. Aortic stenosis - to have TAVR next week. Continue ASA. 3. acute HF - continue Rx, daily weights, low salt diet. Followed by cardiology. 4. Hypertension (SNOMED CT [id number]) - stable, continue Rx 5. Alcoholic cirrhosis - quit drinking 2018. Elevated liver enzymes noted. Declines referral to hepatology at this time. Monitor closely. 6. H/O: alcoholism - see above. 7. Liver function tests abnormal - see above. 8. 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 Neuro sx have improved; patient declined Neuro appt in October. 9. asthma - albuterol inhaler ordered. FOLLOW UP: Return to clinic as noted below and/or sooner PRN UPCOMING APPOINTMENTS: 02/23/2025 10:00 SPR PACT 7 MACHINE FITTER 04/05/2025 10:00 [facility] MHC PSYTR 2 10/09/2025 11:00 [facility] OPTOMETRY 4 No barriers noted; patient understands and agrees to current treatment plan. If patient has any questions, concerns or changes in current health status he/she will call or come in to the VA. A total of 40 minutes were spent F2F with the patient during this encounter and over half that time was spent on counseling and coordination of care. We discussed in depth all current health conditions and management of these conditions. HM: Medication Reconciliation: Outpatient: Has the patient been taking medications as documented in the EMLR? No: Discrepencies were identified. See below. Essential Medication List for Review used to complete this medication reconciliation. INCLUDED IN THIS LIST: Alphabetical list of active outpatient prescriptions dispensed from this [place] (local) and dispensed from another [place] or [facility] facility (remote) as well as inpatient orders (local, pending and active), local clinic medications, locally documented non-VA medications, and local prescriptions that have or been discontinued in the past 90 days. - Discrepancies were identified, addressed, and discussed with the patient/caregiver at this encounter. Discrepancies: med changes noted - All changes in medications, including all non-VA/Herbal/OTC medications were entered into CPRS. - If there were any medications the patient should no longer take, they were discontinued. - The patient/caregiver was instructed to update this list, discard old lists, and take this list to the next appointment, whether with a VA or non-VA provider. /reji/ ERIK COOLEY CERTIFIED NURSE PRACTITIONER Signed: 03/09/2025 13:04 TAO CEE [facility]
--- OUTSIDE RECORDS SUMMARY | 2025-03-03 05:57 | XMS_ITS ---
Author Name [facility] [place] Address [address] [place] [address] Care Team Providers Care Ramp And Cargo Supervisor Name Role Phone TAO CEE Primary Care [...] Name Patient's Relationship to Policy Delacruz [facility] ([facility]) MEDICARE ADVANTAGE [facility] ([facility]) Feb 29, 2012 [id number] EILEEN SCHNEIDER JR PATIENT Selected Encounter This section includes the information on record at [place] for the Encounter. Date/Time Encounter Type Encounter Description Reason Pro vider Source Mar 03, 2025 09:57 AM Outpatient Encounter ADMIN PAT ACTIVTIES (MASNONCT) IHE Encounter Template Text not used by [place] Plan of Treatment: Future Appointments (+ 6 [...] 20 appointments. The data comes from all [place] treatment facilities. Appointment Date/Time Appointment Type Appointme nt Facility Name April 05, 2025 10:00 AM AMBULATORY - PSYCHIATRY [facility] April 10, 2025 10:30 AM AMBULATORY - MEDICINE [facility] Social History: Smoking Status (Most current) and Tobacco Use (All prior to encounter date) This section includes the most current, and the historical, smoking and tobacco- related health factors from the [place] facility where the Encounter took place. Current Smoking Status This section includes the most current smoking, or tobacco-related health factor, from the [place] facility where the Encounter took place. Date/Time Current Smoking Status Comment Facil celia Mar 04, 2024 01:33 PM VA-TOBACCO NEVER USED [place] [facility] [place] [facility] Advance Directives: All historical and current Section Date Range: From patient's date of to the date document was created. This section includes ALL of a patient's completed or amended [place] Advance and Rescinded Directives. The entries below indicate that a directive exists for the patient, but an actual copy is not included with this document. The data comes from all [place] facilities. Date Advance Directives Provider Source Jan 20, 2025 ADVANCE DIRECTIVE [facility] Encounter Notes: All associated encounter notes This section contains the clinical notes associated to the Encounter. Date/Time Encounter Note(s) Provider Source Mar 03, 2025 09:57 AM NURSING NOTE: LOCAL TITLE: CARE COORDINATION COMPLEXITY ASSESSMENT TOOL STANDARD TITLE: NURSING NOTE DATE OF NOTE: MAR 03, 2025@09:57 ENTRY DATE: MAR 03, 2025@09:57:56 AUTHOR: JANET DOMÍNGUEZ COSIGNER: URGENCY: STATUS: COMPLETED Care Coordination & Integrated Case Management (CC&ICM) Complexity Assessment Tool Complexity Assessment The complexity assessment score is 29. The level of care coordination is MODERATE. Subtotals: The Self Management subtotal is 8. The Mental Health/Behavioral Health subtotal is 6. The Social subtotal is 1. The Medical/Physical subtotal is 14. 1. Ability to communicate and understand healthcare needs to obtain services (e.g. providers, teams, medication and equipment) Mild difficulties (1-2 examples) 2. Access to healthcare within VA and/or Community Care (e.g. geographical barriers, transportation, clinic availability and technology availability for virtual care) Mild limitations/difficulties (1-2 barriers) 3. Experience with providers and healthcare team No problems and satisfied with treatment and healthcare team 4. Utilization Five or more admissions or four ED visits in the past 12 months 5. Shared Decision-Making Frequent engagement in shared decision-making in care planning and treatment interventions 6. Readiness to change Action/Maintenance stages with minimal support needed 7. Engagement in goal setting Goals are identified, but partially engaged in achieving goals 8. Adherence to plan of care Adherence with plan of care with periodic reinforcement needed, (for example, sporadic untimely medication refills or doses, less than 5 no-shows or cancellations by [place] in 12 months) 9. Coping Skills Mild difficulty with coping: Episodic/situational with potential difficulty for quick resolution 10. Mental health symptom severity History of MH with no current concerns/symptoms; Active MH symptoms being adequately addressing in MH treatment 11. Substance use History of substance use disorder but now in remission; No current concerns 12. Living Situation/Housing Stable housing; No concerns 13. Employment/Financial No employment/financial concerns 14. Social support/relationships Limited social relationships or moderate engagement with leisure activities 15. Abuse/Neglect/Violence No abuse/neglect/violence suspected, reported or confirmed 16. Legal issues No active or past legal issues known or recorded 17. Functional (Activities of Daily Living (ADLS)/Instrumental Activities of Daily Living (IADLs) Independent for ADLs but not IADLs 18. Care coordination, complexity and integration Has Primary Care Provider with limited communication/coordinatio n/integration 19. Disease and symptom severity Requires specialty referrals for management; moderate signs or symptoms with major interference in well-being or daily life 20. Comorbid medical diagnoses and/or injuries Has 4+ chronic diseases and/or serious persistent injuries Time Spent: 30 Role of Individual Completing Assessment: GLENDY RN /es/ JANET DOMÍNGUEZ MSN RN NURSE KNOTTING MACHINE OPERATOR Signed: 03/03/2025 10:00 JANET DOMÍNGUEZ [place] [facility] [facility]
--- OUTSIDE RECORDS SUMMARY | 2025-03-09 07:00 | XMS_ITS ---
Author Name [facility] [place] Address [address] [place] [address] Care Team Providers Care Angledozer Operator Name Role Phone TAO CEE Primary Care [...] Name Patient's Relationship to Policy Delacruz [facility] ([facility]) MEDICARE ADVANTAGE [facility] ([facility]) Feb 29, 2012 [id number] PATIENT Selected Encounter This section includes the information on record at [place] for the Encounter. Date/Time Encounter Type Encounter Description Reason Pro vider Source Mar 09, 2025 11:00 AM Outpatient Encounter ADMIN PAT ACTIVTIES (MASNONCT) IHE Encounter Template Text not used by [place] Plan of Treatment: Future Appointments (+ 6 [...] 20 appointments. The data comes from all [place] treatment facilities. Appointment Date/Time Appointment Type Appointme nt Facility Name April 05, 2025 10:00 AM AMBULATORY - PSYCHIATRY [facility] April 10, 2025 10:30 AM AMBULATORY - MEDICINE [facility] Social History: Smoking Status (Most current) and [...] 04, 2024 01:33 PM VA-TOBACCO NEVER USED [place] [facility] [facility] Advance Directives: All historical and current Section Date Range: From patient's date of to the date document was created. This section includes ALL of a patient's completed or amended VA Advance and Rescinded Directives. The entries below indicate that a directive exists for the patient, but an actual copy is not included with this document. The data comes from all [place] facilities. Date Advance Directives Provider Source Jan 20, 2025 ADVANCE DIRECTIVE [facility] Encounter Notes: All associated encounter notes This section contains the clinical notes associated to the Encounter. Date/Time Encounter Note(s) Provider Source Mar 09, 2025 02:27 PM NURSING NOTE: LOCAL TITLE: CARE COORDINATION REVIEW TEAM NOTE STANDARD TITLE: NURSING NOTE DATE OF NOTE: MAR 09, 2025@14:27 ENTRY DATE: MAR 09, 2025@14:28:22 AUTHOR: JANET DOMÍNGUEZ COSIGNER: URGENCY: STATUS: COMPLETED Care Coordination Review Team (CCRT) Notification Note Reason for Review: High risk: Other: & ER visits in 12 months Utilization: Number of ER (VA & community) visits in last 12 months: 7 Triggers/root causes for ER visits: heart failure Complexity Assessment: Recommended Level of Care Coordination: Moderate Score: 29 The most prominent need of the is medical/physical. Program area/services and care coordinators, care managers or case monitor whom the worked with prior to the assignment of a Lead Coordinator: Not applicable Case Overview/Summary: 80 year old identified through risk stratification for increased ER usage. [place] has an extensive cardiac history and is being followed by dynamometer tuner. Per PACT RN the is active in his care as is his family the utilization is consitent with his medical diagnosis and the usage is apporpriate Lead Coordinator Assignment Recommendation: Lead Coordinator: NA Program: NA CCRT Plan: CCRT Review Follow-Up Frequency: No anticipated need for follow-up needed by CCRT. Lead Coordinator may bring [place] back for CCRT review if needed. /reji/ JANET DOMÍNGUEZ MSN RN NURSE VISITING TEACHER Signed: 03/09/2025 14:33 JANET DOMÍNGUEZ [place] [facility]
--- OUTSIDE RECORDS SUMMARY | 2025-04-05 06:00 | XMS_ITS | Encounter Summary ---
Author Name [facility] [place] [facility] [place] [facility] [place] Address [address] [place] [id number] Care Team Providers Care Conference And Event Organiser Name Role Phone SELENA ADAN Primary Care Provider Unavail able Insurance Providers: All historical and current Section [...] Patient's Relationship to Policy Delacruz [facility] ([facility]) MEDICARE ADVANTAGE [facility] ([facility]) Feb 29, 2012 [id number] JR PATIENT Selected Encounter This section includes the information on record at [place] for the Encounter. Date/Time Encounter Type Encounter Description Reason Provider Source April 05, 2025 10:00 AM OFFICE O/P EST MOD 30 MIN [facility] - IND ICD-10-CM F43.12 Post-traumatic stress disorder, chronic TIANA CROUCH Encounter Template Text not used by [place] Assessments - Encounter Diagnoses This section includes the primary and secondary diagnoses documented for the Encounter. Date/Time Primary/Secondary Diagnosis Diagnosis Name Provider Source April 05, 2025 12:20 PM PRIMARY Post-traumatic stress disorder, chronic TIANA CROUCH April 05, 2025 12:20 PM SECONDARY Anxiety disorder, unspecified TIANA CROUCH April 05, 2025 12:20 PM SECONDARY Insomnia due to other mental disorder TIANA CROUCH Plan of Treatment: Future Appointments (+ 6 months) and Future Tests (+/- 45 days) The Plan of Treatment section includes future care activities for the patient from all [place] [facility]. This section includes future appointments and future orders which are active, pending or scheduled. Future Appointments This section includes appointments that were scheduled to occur 6 months from the date of the Encounter, up to a maximum of 20 appointments. The data comes from all [place] treatment facilities. Appointment Date/Time Appointment Type Appointme nt Facility Name Jun 09, 2025 10:00 AM AMBULATORY - MEDICINE [facility] Jul 05, 2025 09:30 AM AMBULATORY - PSYCHIATRY [facility] Oct 04, 2025 09:30 AM AMBULATORY - PSYCHIATRY [facility] Social History: Smoking Status (Most current) and Tobacco Use (All prior to encounter date) This section includes the most current, and the historical, smoking and tobacco- related health factors from the [place] facility where the Encounter took place. Current Smoking Status This section includes the most current smoking, or tobacco-related health factor, from the [place] facility where the Encounter took place. Date/Time Current Smoking Status Comment Facil ity March 31, 2022 10:00 AM [place]-TOBACCO NEVER USED [facility] Tobacco Use History This section includes a history of the smoking, or tobacco-related health factors, that were collected on or before the date of the Encounter. The data comes from the [place] facility where the Encounter took place. Date/Time Smoking Status/Tobacco Use Comment F acility April 17, 2021 02:00 PM VA-TOBACCO NEVER USED [facility] Feb 29, 2020 07:04 PM VA-TOBACCO NEVER USED [place] Dec 03, 2018 09:47 AM VA-TOBACCO NEVER USED [place] April 05, 2018 09:02 AM LIFETIME NON-TOBACCO USER [place] April 14, 2017 04:22 PM LIFETIME NON-TOBACCO USER [place] March 31, 2016 01:02 PM LIFETIME NON-TOBACCO USER [place] Nov 18, 2010 01:13 PM LIFETIME NON-TOBACCO USER [place] Advance Directives: All historical and current Section Date Range: From patient's date of to the date document was created. This section includes ALL of a patient's completed or amended [place] Advance and Rescinded Directives. The entries below indicate that a directive exists for the patient, but an actual copy is not included with this document. The data comes from all [place] facilities. Date Advance Directives Provider Source Jan 20, 2025 ADVANCE DIRECTIVE GEN[facility] Encounter Notes: All associated encounter notes This section contains the clinical notes associated to the Encounter. Date/Time Encounter Note(s) Provider Source April 05, 2025 12:06 PM PSYCHIATRY NOTE: LOCAL TITLE: PSYCHIATRY NOTE STANDARD TITLE: PSYCHIATRY NOTE DATE OF NOTE: APRIL 05, 2025@12:06 ENTRY DATE: APRIL 05, 2025@12:06:51 AUTHOR: TIANA CROUCH COSIGNER: URGENCY: STATUS: COMPLETED Time spent: 21-30 minutes >16 mins supportive therapy (including empathic listening, insight building, and psychoeducation). The presents today for follow-up. PATIENT REPORT: Eileen is pleasant and conversational. He states, I'm doin' okay. Since last visit, he was treated at [facility] for stent placement after SC and TAVR for aortic stenosis 2. Aortic stenosis - to have TAVR. He feels back to his old self and reports good energy. He is happy to have a new lease on things. He has resumed his typical routine, but Radha's leg is innjured and they haven't been on many walks. Sleep is okay. He reports taking zolpidem 5mg most nights, and he is interested in a refill. He denies depressed mood. Anxiety is manageable. He does not complain of irritbaility today. There is ongoing avoidance consistent with PTSD. Otherwise, symptoms of PTSD are less acute with medication and not as acute as they once were. His children are doing well. His osn and daughter have stepped up to help him over the past few months given his health needs. [place] denies any recent alcohol. General Appearance, Attitude, and Activity: stated age, heavyset, good eye contact, good self-care, casually-dressed Speech: Rate: Normal [x], Increased [], Decreased [] Volume: Normal [x], Increased [], Decreased [] Articulation: Normal [x], Abnormal [], Coherence: Normal [x], Abnormal [] Spontaneity: Normal [x], Abnormal [] Perseveration [] Paucity of language [] Other: Mood & Affect: Appropriate [x], Congruent [], Incongruent [] Flat [], Labile [], Inapprorpiate to content [] Emotions objectively displayed: normal range Patient's subjective (internal) emotions: okay Thought Process: Rate: Normal [x], Increased [], Decreased [] Reasoning: Normal [x], Abnormal [] Content: Logical [x], Illogical [], Computation: Normal [x], Abnormal [] Descriptions of Assocations: Intact [x], Loose [], Tangential [] Circumstantial [] Abnormal or Psychotic Thoughts: Hallucinations: Auditory: [], Visual [], Tactile [] Gustatory [], Olfactory [], None [x] Homicidal ideation: Yes [], No [x] Suicidal ideation: Yes [], No [x] Obsessions/ Compulsions/ Delusions: none Patient's Judgment: Intact [x], Impaired [] Impulse control: Intact [x], Impaired [] Insight: Intact [x], Impaired [] Sensorium: Attention span: Intact [x], Impaired [] Concentration: Intact [x], Impaired [] Memory: Short-term Memory: Intact [x], Impaired [] Long-term Memory: Intact [x], Impaired [] Fund of Knowledge: Intact [x], Impaired [] SOCIAL HISTORY: AR[employer] FROM Jul TO Jul , has a SO (Dot). Father of four children (one son in [place], one daughter in [place], one daughter in [place] and one son at home with him). He has a araujo/ huskie mix [facility], [facility]. Youngest son works bead [employer]. oldest son--spine cancer daughter with h/o cancer of the eye, kidney SUICIDE RISK ASSESSMENT: SUICIDE INQUIRY: IDEATION: Denies ideation. Do you currently have any homicidal ideation? No ACTIVE OUTPATIENT MEDICATIONS (including Supplies): Active Outpatient Medications (including Supplies): ALBUTEROL 90MCG (CFC-F) 200D ORAL INHL INHALE 1 TO 2 PUFFS ACTIVE BY MOUTH EVERY 6 HOURS NEEDED Indication: FOR BRONCHOSPASM DEPEND UNDERWEAR,MAXIMUM,MEN X-LARGE USE 1 BRIEF ACTIVE DIRECTED THREE TIMES A DAY Indication: URINARY INCONTINENCE FLUOXETINE HCL 10MG CAP TAKE THREE CAPSULES BY MOUTH EVERY ACTIVE MORNING FOR MOOD LORATADINE 10MG TAB TAKE ONE TABLET BY MOUTH ONCE DAILY ACTIVE FOR Indication: ALLERGY SODIUM CHLORIDE NASAL GEL USE SUFFICIENT AMOUNT IN THE ACTIVE NOSE THREE TIMES A DAY Indication: FOR DRY NOSE TAMSULOSIN HCL 0.4MG CAP TAKE ONE CAPSULE BY MOUTH AT ACTIVE BEDTIME ZOLPIDEM TARTRATE 5MG TAB TAKE ONE TABLET BY MOUTH AT ACTIVE BEDTIME NEEDED Indication: FOR SLEEP Non-VA A&D OINTMENT OINT,TOP NORMAL SALINE GEL TOPICALLY ACTIVE Non-VA ASPIRIN 81MG EC TAB 81MG BY MOUTH ONCE DAILY ACTIVE Indication: FOR MYOCARDIAL REINFARCTION PREVENTION Non-VA ATORVASTATIN CALCIUM 80MG TAB 80MG BY MOUTH AT ACTIVE BEDTIME Indication: FOR HIGH CHOLESTEROL Non-VA CLOPIDOGREL BISULFATE 75MG TAB 75MG BY MOUTH ONCE ACTIVE DAILY Indication: FOR MYOCARDIAL REINFARCTION PREVENTION Non-VA FUROSEMIDE 20MG TAB 20MG BY MOUTH ONCE DAILY ACTIVE Indication: CHF Non-VA METOPROLOL TARTRATE 25MG TAB 12.5MG BY MOUTH TWICE ACTIVE DAILY Indication: FOR HEART ATTACK Non-VA MULTIVITAMIN/MINERALS CAP/TAB 1 TABLET BY MOUTH ACTIVE DAILY 14 Total Medications ALLERGIES: Patient has answered NKA I discussed the findings and plan with the patient. I educated the patient about their mental health condition. [place] repeated back the plan and education. IMPRESSION (DSM-5): unspecified anxiety disorder PTSD, chronic Alcohol Use Disorder--reports no recent drinking 80-year-old with a formal diagnosis of PTSD, Anxiety, and Alcohol abuse who presents for follow-up visit with psychiatrist. He is adjusting appropriately to his 's . He is putting a renewed emphasis on physical exercise and in increasing his social [place]. He had recent stent placement at [facility] following SC early 2024. The is tolerating meds well. There is no SI/HI. PLAN: Will continue fluoxetine for mood/ anxiety/ PTSD, at 30mg. 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 Most recent liver enzymes from 08/25/24 reviewed (chronic elevation of AST, ALT normalized). Feed Mill Supervisor advises a lower dose in cases of hepatic impairment. Will also continue zolpidem QHS PRN for sleep, but will decrease to 5mg as consistent with dose he's been taking. Will reduce to 20 tabs per night. I have educated him about the risks of tolerance/ dependence, and encouraged him to try taking the medication no more than 4 or 5 nights a week. He knows to not mix Ambien with alcohol. He is encouraged to use his CPAP nightly. Encouraged him to take medicine on an empty stomach. Will continue to explore opportunities to taper medication. There is a telemarketing representative recommendation that we avoid its use in severe hepatic impairment. Again, most recent liver enzymes only mildy elevated. He feels well physically. He has a strong attachment to medication with perceived benefit. He attended [facility]--declines another referral. agreed with referral to PTSD group but did not follow through. The patient denied suicidal and violent ideation, but the suicide prevention information and hotline were reviewed with the patient. The patient also understands to call 911 or to go to ER in the event of an emergency. I completed a thorough risk assessment today and find him to be at low risk for self-harm or harm to others, in my opinion. The rationale for the psychiatric medications and the alternatives to treatment were discussed with the patient. The side effect profile of the psychiatric medications was reviewed with the patient. This also included discussion of potential drug interactions with the psychiatric medication. Patient demonstrated reasonable understanding of the medication side effects and the above issues. The benefits of psychiatric medications outweigh risks for this patient. I asked the patient to call the clinic or to come to open access if the patient does not like the effect of psychiatric medication or if has side effects with psychiatric medication. Follow-up with PCP for regular health maintenance. FOLLOW-UP: 12 weeks, sooner if needed Medication Reconciliation: Outpatient: Has the patient been taking medications as documented in the EMLR? YES: The patient has been taking medications as documented in the EMLR. Essential Medication List for Review used to complete this medication reconciliation. INCLUDED IN THIS LIST: Alphabetical list of active outpatient prescriptions dispensed from this [facility] (local) and dispensed from another VA or [facility] facility (remote) as well as [...] with a VA or non-VA provider. /reji/ TIANA CROUCH DO Psychiatrist Signed: 04/05/2025 12:20 Receipt Acknowledged By: 04/05/2025 13:03 /reji/ NADEGE [facility]ANG [facility] TIANA CROUCH
--- OUTSIDE RECORDS SUMMARY | 2025-06-09 06:00 | XMS_ITS | Encounter Summary ---
Author Name [facility] Address [address] [place] [address] Care Team Providers Care Heat Treat Technician Name Role Phone JOON ADAN Primary Care Provider Unavail able Insurance [...] Name Patient's Relationship to Policy [facility] ([facility]) MEDICARE ADVANTAGE [facility] ([facility]) Feb 29, 2012 [id number] EILEEN SCHNEIDER JR PATIENT Selected Encounter This section includes the information on record at [facility] for the Encounter. Date/Time Encounter Type Encounter Description Reason Provider Source Jun 09, 2025 10:00 AM OFFICE O/P EST MOD 30 MIN PRIMARY CARE/MEDICINE ICD-10-CM I25.10 [facility] heart disease of deering coronary artery w/o CARL Li Lori Encounter Template Text not used by [facility] Assessments - Encounter Diagnoses This section includes the primary and secondary diagnoses documented for the Encounter. Date/Time Primary/Secondary Diagnosis Diagnosis Name Provider Source Jun 11, 2025 11:32 AM PRIMARY [facility] heart disease of de[place] coronary artery w/o CARL Li [place] Jun 11, 2025 11:32 AM SECONDARY Benign prostatic hyperplasia with lower urinary tract symp CARL ADAN [place] Jun 11, 2025 11:32 AM SECONDARY Essential (primary) hypertension CARL ADAN [place] Jun 11, 2025 11:32 AM SECONDARY Heart failure, unspecified CARL ADAN [place] Jun 11, 2025 11:32 AM SECONDARY Hyperlipidemia, unspecified CARL ADAN [facility] Jun 11, 2025 11:32 AM SECONDARY Obesity, unspecified CARL ADAN [facility] Plan of Treatment: Future Appointments (+ 6 months) and Future Tests (+/- 45 days) The Plan of Treatment section includes future care activities for the patient [facility] This section includes future appointments and future orders which are active, pending or scheduled. Future Appointments This section includes appointments that were scheduled to occur 6 months from the date of the Encounter, up to a maximum of 20 appointments. The data comes from all [facility] treatment facilities. Appointment Date/Time Appointment Type Appointme nt Facility Name Jul 05, 2025 09:30 AM AMBULATORY - PSYCHIATRY [facility] Oct 04, 2025 09:30 AM AMBULATORY - PSYCHIATRY [facility] Oct 09, 2025 11:00 AM [facility] Lab Results: +/- 30 days of the encounter This section includes the Chemistry and Hematology Lab Results on record with [facility] for the patient. Radiology Reports and Pathology Reports are provided separately, in subsequent sections. Lab Results This section contains the Chemistry/Hematology Results that were resulted 30 days before or 30 daysafter the date of the Encounter. Date/Time Source Result Type Result - Unit Interpretation Reference Range Specimen Type Comment Jun 08, 2025 09:12 AM [place] HEMOGLOBIN A1C PANEL BLOOD Specimen T ype: BLOOD Comment: Values obtained from A1C measurements can vary. For atypical A1C assays, a reported value of 7.0 could actually be between 6.72 and 7.28 if measured by a reference method. A reported value of 9.0 could actually be between 8.73 and 9.27. Ref: http://www.ngsp .org/CAPdata.as p Ordering Provider: ELIE ADAN Report Released Date/Time: May 25, 2025 09:35 AM [facility] [address] [address] Performing Lab: [address] [address] HEMOGLOBIN A1C 5.6 4.0-5.6 Jun 08, 2025 09:12 AM [place] LIPID PANEL FASTING SERUM Specimen Ty pe: SERUM Comment: notified of corrected report 06/09/25 at 1610 by JEREMY SODIUM reported incorrectly as 135 by [[id number]]. Changed to 140 on Jun 09, 2025@17:41 by [[id number]]. SODIUM flagged incorrectly as L by [[id number]]. Changed to normal on Jun 09, 2025@17:41 by [[id number]]. POTASSIUM reported incorrectly as 4.2 by [[id number]]. Changed to 4.4 on Jun 09, 2025@17:41 by [[id number]]. CHLORIDE reported incorrectly as 103 by [[id number]]. Changed to 106 on Jun 09, 2025@17:41 by [[id number]]. Ordering Provider: JOON ADAN Report Released Date/Time: May 25, 2025 09:35 AM Reporting Lab: [address] [address] Performing Lab: [address] [address] CHOLESTEROL 104 mg/dL TRIGLYCERIDE 123 mg/dL 0-150 LDL calculated 42 mg/dL 0-129 CHOL/HDL 2.8 HDL CHOLESTEROL 37 mg/dL L >40 Jun 08, 2025 09:12 AM [place] TSH SERUM Sp ecimen Type: SERUM No comment entered. Ordering Provider: JOON ADAN Report Released Date/Time: May 25, 2025 09:35 AM Reporting Lab: [address] [address] Performing Lab: [address] [address] TSH 1.99 u[IU]/mL 0.35-4.94 Jun 08, 2025 09:12 AM [place] LIVER FUNCTION SERUM Specimen Type: S SATINDER Comment: notified of corrected report 06/09/25 at 1610 by JEREMY SODIUM reported incorrectly as 135 by [[id number]]. Changed to 140 on Jun 09, 2025@17:41 by [[id number]]. SODIUM flagged incorrectly as L by [[id number]]. Changed to normal on Jun 09, 2025@17:41 by [[id number]]. POTASSIUM reported incorrectly as 4.2 by [[id number]]. Changed to 4.4 on Jun 09, 2025@17:41 by [[id number]]. CHLORIDE reported incorrectly as 103 by [[id number]]. Changed to 106 on Jun 09, 2025@17:41 by [[id number]]. Ordering Provider: JOON ADAN Report Released Date/Time: May 25, 2025 09:35 AM Reporting Lab: [address] [address] Performing Lab: [address] [address] PROTEIN,TOTAL 7.7 g/dL 6.4-8.3 ALBUMIN 4.3 g/dL 3.2-4.6 ALKALINE PHOSPHATASE 136 U/L 40-150 AST 75 U/L H 5-34 ALT 48 U/L 0-55 BILIRUBIN, TOTAL 1.5 mg/dL H 0.2-1.2 BILIRUBIN, DIRECT 0.5 mg/dL 0-0.5 Jun 08, 2025 09:12 AM [place] BASIC METABOLIC PANEL (fasting) SERUM Specimen Type: SERUM Comment: notified of corrected report 06/09/25 at 1610 by JEREMY SODIUM reported incorrectly as 135 by [[id number]]. Changed to 140 on Jun 09, 2025@17:41 by [[id number]]. SODIUM flagged incorrectly as L by [[id number]]. Changed to normal on Jun 09, 2025@17:41 by [[id number]]. POTASSIUM reported incorrectly as 4.2 by [[id number]]. Changed to 4.4 on Jun 09, 2025@17:41 by [[id number]]. CHLORIDE reported incorrectly as 103 by [[id number]]. Changed to 106 on Jun 09, 2025@17:41 by [[id number]]. Ordering Provider: JOON ADAN Report Released Date/Time: May 25, 2025 09:35 AM Reporting Lab: [address] [address] Performing Lab: [address] [address] UREA NITROGEN 24 mg/dL 8-26 GLUCOSE 104 mg/dL H 65-100 SODIUM 140 mmol/L L 136-145 POTASSIUM 4.4 mmol/L 3.5-5.1 CHLORIDE 106 mmol/L 98-107 CO2 27 meq/L 23-31 CALCIUM 8.8 mg/dL 8.8-10 CREATININE, Serum 0.93 mg/dL 0.72-1.25 eGFR(CKD-EPI 2020) 84 mL/min >60 Jun 08, 2025 09:12 AM [place] VITAMIN D (25-OH) SERUM Specimen Type : SERUM No comment entered. Ordering Provider: JOON ADAN Report Released Date/Time: May 25, 2025 09:35 AM Reporting Lab: [address] [address] Performing Lab: [address] [address] VITAMIN D (25-OH) 37.5 ng/mL 20-50 Jun 08, 2025 09:12 AM [place] CBC AND DIFF (AUTO) BLOOD Specimen Ty pe: BLOOD No comment entered. Ordering Provider: JOON ADAN Report Released Date/Time: May 25, 2025 09:35 AM Reporting Lab: [address] [address] Performing Lab: [address] [place] [address] WBC 5.67 10*3/uL 4.50-11.00 RBC 4.16 10*6/uL L 4.23-5.66 HGB 12.6 g/dL L 12.8-17 HCT 36.2 L 39.2-50.4 MCV 87.0 fL 82-99 MCHC 34.8 g/dL 30.8-35.1 PLT 111 10*3/uL L 140-360 MPV 11.8 fL 9.2-12.4 RDW-CV 14.3 12.0-16.0 MONO, ABS 0.60 10*3/uL 0.30-1.10 MCH 30.3 pg 26.2-32.6 NEUT % 73.7 43.7-75.8 LYMPH % 11.6 L 14.0-42.3 MONO % 10.6 5.1-13.7 EOS % 3.5 0.4-6.8 BASO % 0.4 0.1-2.0 NEUT, ABS 4.18 10*3/uL 2.20-7.60 LYMPH, ABS 0.66 10*3/uL L 1.00-3.20 EOS, ABS 0.20 10*3/uL 0.03-0.44 BASO, ABS 0.02 10*3/uL 0.01-0.13 IMMATURE GRAN % 0.2 0.0-0.7 IMMATURE GRAN, ABS 0.01 10*3/uL 0.00-0.0 6 NRBC % 0.0 0.0-0.0 NRBC, ABS 0.00 10*3/uL 0.00-0.00 Vital Signs: All taken on the encounter date This section contains inpatient and outpatient Vital Signs collected on the date of the Encounter. Date/Time Temperature Pulse Blood Pressure Respiratory Rate SP02 Pain Height Weight Body Mass Index Source Jun 09, 2025 10:02 AM 65 /min 155/79 mm[Hg] 96 % 252 lb 40 [place] Social History: Smoking Status (Most current) and Tobacco Use (All prior to encounter date) This section includes the most current, and the historical, smoking and tobacco- related health factors from the [facility] facility where the Encounter took place. Current Smoking Status This section includes the most current smoking, or tobacco-related health factor, from the [facility] facility where the Encounter took place. Date/Time Current Smoking Status Comment Nettie dempseyy March 31, 2022 10:00 AM VA-TOBACCO NEVER USED [place] Tobacco Use History This section includes a history of the smoking, or tobacco-related health factors, that were collected on or before the date of the Encounter. The data comes from the [facility] facility where the Encounter took place. Date/Time Smoking Status/Tobacco Use Comment F acility April 17, 2021 02:00 PM VA-TOBACCO NEVER USED [place] Feb 29, 2020 07:04 PM VA-TOBACCO NEVER USED [place] Dec 03, 2018 09:47 AM VA-TOBACCO NEVER USED [place] April 05, 2018 09:02 AM LIFETIME NON-TOBACCO USER [place] April 14, 2017 04:22 PM LIFETIME NON-TOBACCO USER [place] March 31, 2016 01:02 PM LIFETIME NON-TOBACCO USER [place] Nov 18, 2010 01:13 PM LIFETIME NON-TOBACCO USER [place] Advance Directives: All historical and current Section Date Range: From patient's date of to the date document was created. This section includes ALL of a patient's completed or amended [facility] Advance and Rescinded Directives. The entries below indicate that a directive exists for the patient, but an actual copy is not included with this document. The data comes from all [facility] facilities. Date Advance Directives Provider Source Jan 20, 2025 ADVANCE DIRECTIVE GENNA MELENDEZ Encounter Notes: All associated encounter notes This section contains the clinical notes associated to the Encounter. Date/Time Encounter Note(s) Provider Source Jun 09, 2025 10:55 AM LETTERS: LOCAL TITLE: PATIENT LETTER (T) STANDARD TITLE: LETTERS DATE OF NOTE: JUN 09, 2025@10:55 ENTRY DATE: JUN 09, 2025@10:55:30 AUTHOR: JOON ADAN COSIGNER: URGENCY: STATUS: COMPLETED PATIENT LETTER (T) Has ADDENDA DEPARTMENT OF [facility] Toll Free Number Primary Care Telephone Assistance can be reached at extension [phone] [facility] scheduling can be reached at extension [phone] [facility] scheduling can be reached at ext [phone] EILEEN SCHNE[address]ER [address], [address] Dear Combs, Your recent test results are as follows: LAB CHEMISTRY & HEMATOLOGY Collection DT Specimen Test Name Result Units Ref Range 06/08/2025 09:12 BLOOD !! HEMOGLOBIN A1C 5.6 % 4.0 - 5.6 06/08/2025 09:12 BLOOD WBC 5.67 10*3/uL 4.50 - 11.00 RBC 4.16 L 10*6/uL 4.23 - 5.66 HGB 12.6 L g/dL 12.8 - 17 HCT 36.2 L % 39.2 - 50.4 MCV 87.0 fl 82 - 99 MCH 30.3 pg 26.2 - 32.6 MCHC 34.8 g/dL 30.8 - 35.1 RDW-CV 14.3 % 12.0 - 16.0 PLT 111 L 10*3/uL 140 - 360 MPV 11.8 fL 9.2 - 12.4 NEUT % 73.7 % 43.7 - 75.8 LYMPH % 11.6 L % 14.0 - 42.3 MONO % 10.6 % 5.1 - 13.7 EOS % 3.5 % 0.4 - 6.8 BASO % 0.4 % 0.1 - 2.0 IMMATURE GRAN % 0.2 % 0.0 - 0.7 NRBC % 0.0 % 0.0 - 0.0 NEUT, ABS 4.18 10*3/uL 2.20 - 7.60 LYMPH, ABS 0.66 L 10*3/uL 1.00 - 3.20 MONO, ABS 0.60 10*3/uL 0.30 - 1.10 EOS, ABS 0.20 10*3/uL 0.03 - 0.44 BASO, ABS 0.02 10*3/uL 0.01 - 0.13 IMMATURE GRAN, AB 0.01 10*3/uL 0.00 - 0.06 NRBC, ABS 0.00 10*3/uL 0.00 - 0.00 06/08/2025 09:12 SERUM TSH 1.99 uIU/mL 0.35 - 4.94 VITAMIN D (25-OH) 37.5 ng/mL 20 - 50 06/08/2025 09:12 SERUM CALCIUM 8.8 mg/dL 8.8 - 10 CREATININE, Serum 0.93 mg/dL 0.72 - 1.25 eGFR(CKD-EPI 2020 84 mL/min Ref: >=60 SODIUM 135 L mmol/L 136 - 145 POTASSIUM 4.2 mmol/L 3.5 - 5.1 CHLORIDE 103 mmol/L 98 - 107 CO2 27 mEq/L 23 - 31 UREA NITROGEN 24 mg/dL 8 - 26 GLUCOSE 104 H mg/dL 65 - 100 PROTEIN,TOTAL 7.7 g/dL 6.4 - 8.3 ALBUMIN 4.3 g/dL 3.2 - 4.6 ALK WAYNE 136 U/L 40 - 150 AST 75 H U/L 5 - 34 BILIRUBIN, TOTAL 1.5 H mg/dL 0.2 - 1.2 BILIRUBIN, DIRECT 0.5 mg/dL 0 - 0.5 CHOLESTEROL 104 mg/dL <7 - 199 TRIGLYCERIDE 123 mg/dL 0 - 150 LDL calculated 42 mg/dL 0 - 129 CHOL/HDL 2.8 ALT 48 U/L 0 - 55 HDL CHOLESTEROL 37 L mg/dL Ref: >=40 !! Indicates COMMENTS AVAILABLE...Refer to Interim Lab Report. Lipid Profile Collection DT Specimen Test Name Result Units Ref Range 06/08/2025 09:12 SERUM CHOLESTEROL 104 mg/dL <7 - 199 06/08/2025 09:12 SERUM TRIGLYCERIDE 123 mg/dL 0 - 150 06/08/2025 09:12 SERUM HDL CHOLESTEROL 37 L mg/dL Ref: >=40 06/08/2025 09:12 SERUM LDL calculated 42 mg/dL 0 - 129 06/08/2025 09:12 SERUM CHOL/HDL 2.8 06/08/2025 09:12 BLOOD !! HEMOGLOBIN A1C 5.6 % 4.0 - 5.6 !! Indicates COMMENTS AVAILABLE...Refer to Interim Lab Report. Thyroid Test Collection DT Spec TSH SR- 06/08/2025 09:12 SERUM 1.99 Please call if you have any questions or concerns. 06/09/2025 ADDENDUM STATUS: COMPLETED THIS ASBESTOS REMOVER MAILED LETTER TO . /reji/ ROSSY SHELDON [employer] MECH[employer]IC Signed: 06/09/2025 13:30 Sincerely, Your Primary Care Team [facility] [address] [address] [place] [address] [phone] [facility] [address] [place] [address] [place] [address] [phone] [facility] [address] [facility] [place] [address] [place] [address] [phone] JOON ADAN [place] Jun 09, 2025 10:49 AM PHYSICIAN NOTE: LOCAL TITLE: MD NOTE STANDARD TITLE: PHYSICIAN NOTE DATE OF NOTE: JUN 09, 2025@10:49 ENTRY DATE: JUN 11, 2025@10:49:31 AUTHOR: JOON ADAN EXP COSIGNER: URGENCY: STATUS: COMPLETED Chief complaint:Pt is a 80 year old who comes in for follow up of medical problems as noted below. PMH: Active problems - Computerized Problem List is the source for the followin. Coronary atherosclerosis s/p ND, two stent placement 2. Chronic heart failure 02/02/25 recent acute exacerbation 3. Carotid atherosclerosis approx 50% noted bilaterally on US 12/05/24 4. Alcoholic cirrhosis 5. Lower urinary tract symptoms due to benign prostatic hypertrophy urinary incontinence, hesitancy, weak stream 6. History of surgery tonsillectomy adenoidectomy vasectomy appendectomy umbilical hernia repair nasal polyp removal 2023 cardiac stent x 2 7. Allergic Rhinitis (SCT [id number]) 8. Obesity 07/13/24 BMI 40 08/29/24 BMI 39 9. Aortic stenosis echo 11/15 mild , LVEF 55-60%, mild LVH 02/21/21 NSR, septal infart, age undetermined 12/02/24 echo shows severe aortic stenosis 10. Obstructive sleep apnea syndrome doesn't wear cpap 11. H/O: alcoholism denies recent drinking last drink 2018 12. Chronic post-traumatic stress disorder (SNOMED CT 267025472) reviewed 13. Liver function tests abnormal Hep panel done 11/28/16 abd U/S 11/04/16 fatty liver mod-severe fibrosis liver elastography 12/20/19 + 12/20 14. Bilateral hearing loss 15. Insomnia (SNOMED CT 513478738) reviewed reviewed 16. Hypertension (SNOMED CT 29480379) 17. History of polyp of colon colon 03/12/17 repeat 5 years 18. Family medical history DM2 colon CA prostate CA ETOH ASHD 19. Anxiety (SNOMED CT 06665487) reviewed reviewed Allergies: Patient has answered NKA The following VA and Non-VA meds were reconciled with patient: Active and Recently Outpatient Medications (excluding Supplies): Active Outpatient Medications Status 1) ALBUTEROL 90MCG (CFC-F) 200D ORAL INHL INHALE 1 TO 2 PUFFS ACTIVE BY MOUTH EVERY 6 HOURS NEEDED Indication: FOR BRONCHOSPASM 2) FLUOXETINE HCL 10MG CAP TAKE THREE CAPSULES BY MOUTH EVERY ACTIVE MORNING FOR MOOD 3) LISINOPRIL 10MG TAB TAKE ONE TABLET BY MOUTH ONCE DAILY TO ACTIVE CONTROL BLOOD PRESSURE Indication: FOR HIGH BLOOD PRESSURE 4) LORATADINE 10MG TAB TAKE ONE TABLET BY MOUTH ONCE DAILY FOR ACTIVE Indication: ALLERGY 5) TAMSULOSIN HCL 0.4MG CAP TAKE TWO CAPSULES BY MOUTH AT ACTIVE BEDTIME Indication: FOR ENLARGED PROSTATE 6) ZOLPIDEM TARTRATE 5MG TAB TAKE ONE TABLET BY MOUTH AT ACTIVE BEDTIME NEEDED Indication: FOR SLEEP Active Non-VA Medications Status 1) Non-VA A&D OINTMENT OINT,TOP NORMAL SALINE GEL TOPICALLY ACTIVE 2) Non-VA ASPIRIN 81MG EC TAB 81MG BY MOUTH ONCE DAILY ACTIVE Indication: FOR MYOCARDIAL REINFARCTION PREVENTION 3) Non-VA ATORVASTATIN CALCIUM 80MG TAB 80MG BY MOUTH AT ACTIVE BEDTIME Indication: FOR HIGH CHOLESTEROL 4) Non-VA CLOPIDOGREL BISULFATE 75MG TAB 75MG BY MOUTH ONCE ACTIVE DAILY Indication: FOR MYOCARDIAL REINFARCTION PREVENTION 5) Non-VA FUROSEMIDE 20MG TAB 20MG BY MOUTH ONCE DAILY ACTIVE Indication: CHF 6) Non-VA METOPROLOL TARTRATE 25MG TAB 12.5MG BY MOUTH TWICE ACTIVE DAILY Indication: FOR HEART ATTACK 7) Non-VA MULTIVITAMIN/MINERALS CAP/TAB 1 TABLET BY MOUTH DAILY ACTIVE 13 Total Medications No Active Remote Medications for this patient On examination: 155/79 (06/09/2025 10:02)97.6 F [36.4 C] (02/23/2025 10:08)19 (02/23/2025 10:08)65 (06/09/2025 10:02)0 (08/09/2024 08:31)X3 BMI: 39.6252 lb [114.31 kg] (06/09/2025 10:02) CC: 4 Mo f/u Last Seen in PCP: Jan 2025, HPI: 80 y/o M with PMH of HTN, HLD, CAD s/p recent ND with 2 stents Dec 2024, acute CHF, 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 This is 1st visit with the by this PCP. is feeling fine and has no new complains now. Blood pressure elevated in the office. At home Combs mention similar blood pressure 150s over 80s. Combs also complaining of very weak stream with urination, have to strain to produce urine, takes in a long time to urinate. Did new labs, imaging and wants to discuss. Needs meds refilled. Pt denies any recent travel, sick contacts, fever, chills, cough, palpitations, CP, SOB, PEÑA, numbness, tingling, weakness, dizziness, abd pain, N/V/D, dysuria, constipation, LE edema, BW changes. No changes in ET, can walk 4+ blocks, can climb 1-2 flight of stairs, denies any orthopnea, PND. Pt is compliant with medications. ROS: as mentioned in HPI PSH: cysts removed to scalp, axilla; 2000: Umbilical Hernia Repair; Vasectomy ; Tonsillectomy and Adenoidectomy (Under Age 12) SH: no smoking ; quit 2018 alcohol; denies drug use, MJ ; has GF, 2015 ; 3 children FH: M: dementia F: from [place] alcohol; PGF: prostate or bladder CA MGF: colon CA Outside PCP: yes Dr Urias [facility] PE: GA: AOx3, elderly male, in NAD, pleasant, HEENT: NC/AT, MMM; Neck: supple, no LNs, no JVD; HRT: normal S1/S2, no MRGs Chest: CTA b/l normal breath sounds, no wheezing Abd: soft, NTTP, BS+ Extremities: no leg edema, no cyanosis b/l , PPP; Labs : 06/08/25 fasting labs CBC: WNL H/H BMP: WNL, B; Na+ 135 LDL: 42 HDL: 37 LFTs: AST/ALT 75/WNL TSH: WNL, A1c: 5.6 Vit D: 37 CA++: WNL Imaging/Tests: none in [facility] Assessment/Plan: HTN, HLD, CAD s/p recent ND with 2 stents Dec 2024, acute CHF, HFpEF, s/p TAVR Jan 2025, Pacemaker placement Feb 2025: Followed by the outside cardiology, [facility] cardiology last visit April 2025 On DAPT, atorvastatin 80 Metoprolol tartrate 12.5 mg twice daily Lasix 20 to 40 mg Blood pressure still elevated Start with lisinopril 10 mg 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 Sousa [facility] years Extreme Obesity: Gained body weight Declined move was admitted in the past Refused nutrition consult Records reviewed. New labs, imaging reviewed, discussed, questions answered. Meds refilled. Combs verbalized understanding of the plan and agreed to it. Patient follows with non-VA providers and defers to them for medications management and management of chronic conditions. [facility] HM: Colonoscopy: Did not discuss today, due 2021? RTC 6 mo or sooner PRN F2F visit Fasting labs prior Addendum: PACT 8 TEAM: See RTC above Narrative of this note is partially produced using Kah[employer] voice recognition software. Some errors in words, composition, structure are possible. Medication Reconciliation: Outpatient: Has the patient been taking medications as documented in the EMLR? YES: The patient has been taking medications as documented in the EMLR. Essential Medication List for Review used to complete this medication reconciliation. INCLUDED IN THIS LIST: Alphabetical list of active outpatient prescriptions dispensed from this [facility] (local) and dispensed from another [facility] or [facility] facility (remote) as well as inpatient [...] whether with a VA or non-VA provider. HTN Assess for Elevated BP>=140/90: The patient's medication regimen was adjusted to improve blood pressure control. Liver Cancer (HCC) Surveillance: Hepatocellular Carcinoma (HCC) Surveillance The [employer] of Liver Diseases (AASLD) recommends surveillance for hepatocellular carcinoma (HCC) for all patients with cirrhosis and some patients with chronic hepatitis B. Patients who are at high risk for hepatocellular carcinoma (HCC) should undergo surveillance using ultrasound and alpha-fetoprotein (AFP) every 6 months. The patient is actively receiving non-[facility] liver care. /reji/ Joon Adan MD MD PRIMARY CARE PHYSICIAN Signed: 06/11/2025 11:33 JOON ADAN [place]
--- OUTSIDE RECORDS SUMMARY | 2025-07-05 05:30 | XMS_ITS | Encounter Summary ---
Author Name [facility] Organization [facility] Address [address] [place] [id number] Care Team Providers Care Top Taper Machine Name Role Phone SELENA ADAN Primary Care [...] Name Patient's Relationship to Policy [facility] ([facility]) MEDICARE ADVANTAGE [facility] ([facility]) Feb 29, 2012 [id number] EILEEN SCHNEIDER JR PATIENT Selected Encounter This section includes the information on record at [place] for the Encounter. Date/Time Encounter Type Encounter Description Reason Provider Source Jul 05, 2025 09:30 AM OFFICE O/P EST MOD 30 MIN [facility] - IND ICD-10-CM F43.12 Post-traumatic stress disorder, chronic PERCY CROUCH Encounter Template Text not used by [place] Assessments - Encounter Diagnoses This section includes the primary and secondary diagnoses documented for the Encounter. Date/Time Primary/Secondary Diagnosis Diagnosis Name Provider Source Jul 05, 2025 10:48 AM PRIMARY Post-traumatic stress disorder, chronic PERCY CROUCH INO Jul 05, 2025 10:48 AM SECONDARY Anxiety disorder, unspecified LARROW,PERCY MCKINNON Jul 05, 2025 10:48 AM SECONDARY Insomnia due to other mental disorder PERCY CROUCH Plan of Treatment: Future Appointments (+ 6 months) and Future Tests (+/- 45 days) The Plan of Treatment section includes future care activities for the patient from all [place] treatmentfacilities. This section includes future appointments and future orders which are active, pending or scheduled. Future Appointments This section includes appointments that were scheduled to occur 6 months from the date of the Encounter, up to a maximum of 20 appointments. The data comes from all [place] treatment facilities. Appointment Date/Time Appointment Type Appointme nt Facility Name Oct 04, 2025 09:30 AM AMBULATORY - PSYCHIATRY [facility] Oct 09, 2025 11:00 AM [facility] Dec 11, 2025 10:30 AM AMBULATORY - MEDICINE [facility] Lab Results: +/- 30 days of the encounter This section includes the Chemistry and Hematology Lab Results on record with [place] for the patient. Radiology Reports and Pathology Reports are provided separately, in subsequent sections. Lab Results This section contains the Chemistry/Hematology Results that were resulted 30 days before or 30 daysafter the date of the Encounter. Date/Time Source Result Type Result - Unit Interpretation Reference Range Specimen Type Comment Jun 08, 2025 09:12 AM [facility] HEMOGLOBIN A1C PANEL BLOOD Specimen T ype: [...] May 25, 2025 09:35 AM Reporting Lab: [facility] [address] [facility] [address] Performing Lab: [address] [address] HEMOGLOBIN A1C 5.6 4.0-5.6 Jun 08, 2025 09:12 AM [facility] TSH SERUM Sp ecimen Type: SERUM No comment entered. Ordering Provider: SELENA ADAN Report Released Date/Time: May 25, 2025 09:35 AM Reporting Lab: [address] [address] Performing Lab: [address] [address] TSH 1.99 u[IU]/mL 0.35-4.94 Jun 08, 2025 09:12 AM [facility] LIPID PANEL FASTING SERUM Specimen Ty pe: SERUM Comment: notified of corrected report 06/09/25 at 1610 by JEREMY SODIUM reported incorrectly as 135 by [[id number]]. Changed to 140 on Jun 09, 2025@17:41 by [[id number]]. SODIUM flagged incorrectly as L by [[id number]]. Changed to normal on Jun 09, 2025@17:41 by [[id number]]. POTASSIUM reported incorrectly as 4.2 by [[id number]]. Changed to 4.4 on Jun 09, 2025@17:41 by [[id number]]. CHLORIDE reported incorrectly as 103 by [[id number]]. Changed to 106 on Jun 09, 2025@17:41 by [[id number]]. Ordering Provider: SELENA ADAN Report Released Date/Time: May 25, 2025 09:35 AM Reporting Lab: [address] [address] Performing Lab: [address] [address] CHOLESTEROL 104 mg/dL TRIGLYCERIDE 123 mg/dL 0-150 LDL calculated 42 mg/dL 0-129 CHOL/HDL 2.8 HDL CHOLESTEROL 37 mg/dL L >40 Jun 08, 2025 09:12 AM [facility] LIVER FUNCTION SERUM Specimen Type: S SATINDER Comment: notified of corrected report 06/09/25 at 1610 by JEREMY SODIUM reported incorrectly as 135 by [[id number]]. Changed to 140 on Jun 09, 2025@17:41 by [[id number]]. SODIUM flagged incorrectly as L by [[id number]]. Changed to normal on Jun 09, 2025@17:41 by [[id number]]. POTASSIUM reported incorrectly as 4.2 by [[id number]]. Changed to 4.4 on Jun 09, 2025@17:41 by [[id number]]. CHLORIDE reported incorrectly as 103 by [[id number]]. Changed to 106 on Jun 09, 2025@17:41 by [[id number]]. Ordering Provider: SELENA ADAN Report Released Date/Time: May 25, 2025 09:35 AM Reporting Lab: [address] [address] Performing Lab: [address] [address] PROTEIN,TOTAL 7.7 g/dL 6.4-8.3 ALBUMIN 4.3 g/dL 3.2-4.6 ALKALINE PHOSPHATASE 136 U/L 40-150 AST 75 U/L H 5-34 ALT 48 U/L 0-55 BILIRUBIN, TOTAL 1.5 mg/dL H 0.2-1.2 BILIRUBIN, DIRECT 0.5 mg/dL 0-0.5 Jun 08, 2025 09:12 AM [facility] BASIC METABOLIC PANEL (fasting) SERUM Specimen Type: SERUM Comment: notified of corrected report 06/09/25 at 1610 by JEREMY SODIUM reported incorrectly as 135 by [[id number]]. Changed to 140 on Jun 09, 2025@17:41 by [[id number]]. SODIUM flagged incorrectly as L by [[id number]]. Changed to normal on Jun 09, 2025@17:41 by [[id number]]. POTASSIUM reported incorrectly as 4.2 by [[id number]]. Changed to 4.4 on Jun 09, 2025@17:41 by [[id number]]. CHLORIDE reported incorrectly as 103 by [[id number]]. Changed to 106 on Jun 09, 2025@17:41 by [[id number]]. Ordering Provider: SELENA ADAN Report Released Date/Time: May 25, 2025 09:35 AM Reporting Lab: [address] [address] Performing Lab: [address] [address] UREA NITROGEN 24 mg/dL 8-26 GLUCOSE 104 mg/dL H 65-100 SODIUM 140 mmol/L L 136-145 POTASSIUM 4.4 mmol/L 3.5-5.1 CHLORIDE 106 mmol/L 98-107 CO2 27 meq/L 23-31 CALCIUM 8.8 mg/dL 8.8-10 CREATININE, Serum 0.93 mg/dL 0.72-1.25 eGFR(CKD-EPI 2020) 84 mL/min >60 Jun 08, 2025 09:12 AM [facility] VITAMIN D (25-OH) SERUM Specimen Type : SERUM No comment entered. Ordering Provider: SELENA ADAN Report Released Date/Time: May 25, 2025 09:35 AM Reporting Lab: [address] [address] Performing Lab: [address] [address] VITAMIN D (25-OH) 37.5 ng/mL 20-50 Jun 08, 2025 09:12 AM [facility] CBC AND DIFF (AUTO) BLOOD Specimen Ty pe: BLOOD No comment entered. Ordering Provider: SELENA ADAN Report Released Date/Time: May 25, 2025 09:35 AM Reporting Lab: [address] [address] Performing Lab: [address] [address] WBC 5.67 10*3/uL 4.50-11.00 RBC 4.16 10*6/uL [...] 0.0 0.0-0.0 NRBC, ABS 0.00 10*3/uL 0.00-0.00 Social History: Smoking Status (Most current) and Tobacco Use (All prior to encounter date) This section includes the most current, and the historical, smoking and tobacco- related health factors from the [place] facility where the Encounter took place. Current Smoking Status This section includes the most current smoking, or tobacco-related health factor, from the [place] facility where the Encounter took place. Date/Time Current Smoking Status Comment Nettie yang March 31, 2022 10:00 AM VA-TOBACCO NEVER USED [facility] Tobacco Use History This section includes a history of the smoking, or tobacco-related health factors, that were collected on or before the date of the Encounter. The data comes from the [place] facility where the Encounter took place. Date/Time Smoking Status/Tobacco Use Comment F acjesse April 17, 2021 02:00 PM VA-TOBACCO NEVER USED [facility] Feb 29, 2020 07:04 PM VA-TOBACCO NEVER USED [facility] Dec 03, 2018 09:47 AM VA-TOBACCO NEVER USED [facility] April 05, 2018 09:02 AM LIFETIME NON-TOBACCO USER [facility] April 14, 2017 04:22 PM LIFETIME NON-TOBACCO USER [facility] March 31, 2016 01:02 PM LIFETIME NON-TOBACCO USER [facility] Nov 18, 2010 01:13 PM LIFETIME NON-TOBACCO USER [facility] Advance Directives: All historical and current Section Date Range: From patient's date of to the date document was created. This section includes ALL of a patient's completed or amended [place] Advance and Rescinded Directives. The entries below indicate that a directive exists for the patient, but an actual copy is not included with this document. The data comes from all [place] facilities. Date Advance Directives Provider Source Jan 20, 2025 ADVANCE DIRECTIVE GENNA MELENDEZ [facility] Encounter Notes: All associated encounter notes This section contains the clinical notes associated to the Encounter. Date/Time Encounter Note(s) Provider Source Jul 05, 2025 04:20 PM [facility] [place] TMENT PLAN NOTE: LOCAL TITLE: MH TREATMENT PLAN STANDARD TITLE: MENTAL HEALTH TREATMENT PLAN NOTE DATE OF NOTE: JUL 05, 2025@16:20:21 ENTRY DATE: JUL 05, 2025@16:20:30 AUTHOR: PERCY CROUCH EXP COSIGNER: URGENCY: STATUS: COMPLETED MH TREATMENT PLAN - Jun, @ 04:20PM Visit Date: Jun, @ 09:30 - [facility] PSYTR 2 COLOR REPAIRER: PERCY CROUCH / INO Leonard TREATMENT PLAN: Problem: PTSD Status: ACTIVE Goal: decreased avoidance/ isolation Status: ACTIVE Objective: will report decreased avoidance/ isolation, a sign that PTSD sx are under good control and responding well to medication Status: ACTIVE Projected Target: 04/27/2021 Intervention: Take medications as prescribed, attend MH appointments, consider therapy/ groups Status: ACTIVE Discipline: [facility] DISCIPLINE: [facility] Entered Treatment: 07/05/2025 @ 04:20PM Review Date: 04/01/2023 Anticipated Discharge: None INTERDISCIPLINARY TEAM: PERCY CROUCH: PSYCHIATRIST COMMUNICATION: Relevant treatment options, including evidence-based interventions, were considered and discussed with the . YES A copy of the treatment plan was given to the [place]. NO Risks, benefits, and potential complications were discussed with the [place]. YES /reji/ PERCY CROUCH DO Psychiatrist Signed: 07/05/2025 16:20 PERCY CROUCH Jul 05, 2025 10:40 AM PSYCHIATRY NOTE: LOCAL TITLE: PSYCHIATRY NOTE STANDARD TITLE: PSYCHIATRY NOTE DATE OF NOTE: JUL 05, 2025@10:40 ENTRY DATE: JUL 05, 2025@10:40:46 AUTHOR: PERCY CROUCH EXP COSIGNER: URGENCY: STATUS: COMPLETED Time spent: 21-30 minutes >16 mins supportive therapy (including empathic listening, insight building, and psychoeducation). The presents today for follow-up. PATIENT REPORT: Eileen is pleasant and conversational. He states, I'm doin' okay, having a quiet summer [place] is working on his weight--he recently started walking again with Radha at the [employer] [place]. Energy is WNL. He has fair motivations and interests--he prefers to stay home but does get out with dog and also to the [facility]. His girlfriend plans to sell her house soon and move locally. He makes a fervent request to again have #30 tabs of zolpidem for the month--he reports severe insomnia on nights that he goes without the medication. He denies depressed mood. Anxiety is manageable. He does not complain of irritbaility today. There is ongoing avoidance consistent with PTSD. Otherwise, symptoms of PTSD are less acute with medication and not as acute as they once were. His children are doing well. His osn and daughter have stepped up to help him over the past few months given his health needs. denies any recent alcohol. General Appearance, Attitude, [...] Father of four children (one son in [place], one daughter in [place], one daughter in [place] and one son at home with him). He has a araujo/ huskie mix Deliv. Youngest son works [employer]. oldest son--spine cancer daughter with h/o cancer [...] BY MOUTH EVERY ACTIVE MORNING FOR MOOD ### LISINOPRIL 10MG TAB TAKE ONE TABLET BY MOUTH ONCE DAILY TO ACTIVE CONTROL BLOOD PRESSURE Indication: FOR HIGH BLOOD PRESSURE LORATADINE 10MG TAB TAKE ONE TABLET BY MOUTH ONCE DAILY ACTIVE FOR Indication: ALLERGY TAMSULOSIN HCL 0.4MG CAP TAKE TWO CAPSULES BY MOUTH AT ACTIVE BEDTIME Indication: FOR ENLARGED PROSTATE ZOLPIDEM TARTRATE 5MG TAB TAKE ONE TABLET BY MOUTH AT ACTIVE (S) BEDTIME NEEDED Indication: FOR SLEEP Non-VA A&D [...] the patient about their mental health condition. repeated back the plan and education. IMPRESSION (DSM-5): unspecified anxiety disorder PTSD, chronic Alcohol Use Disorder, sustained full remission 80-year-old with a formal diagnosis of PTSD, Anxiety, and Alcohol abuse in susatined full remission who presents for follow-up visit with psychiatrist. He is adjusting appropriately to his 's . He is putting a renewed emphasis on physical exercise and in increasing his social venetie. He had recent stent placement at [facility] following [place] early 2024. The is tolerating meds well. There is no SI/HI. PLAN: Will continue fluoxetine for mood/ anxiety/ PTSD, at 30mg. 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 Most recent liver enzymes from 08/25/24 reviewed (chronic elevation of AST, ALT normalized). [employer] advises a lower dose in cases of hepatic impairment. Will also continue zolpidem QHS PRN for sleep. He has been prescribed this medicine for many years and I inherited him on it. He reports very poor sleep without the medication and requests #30 for 30 days. I have educated him about the risks of tolerance/ dependence, and encouraged him to try taking the medication no more than 4 or 5 nights a week (reports he was unsuccessful when attempting). He knows to not mix Ambien with alcohol. He is encouraged to use his CPAP nightly. Encouraged him to take medicine on an empty stomach. Will continue to explore opportunities to taper medication. There is a breakdown man recommendation that we avoid its use in severe hepatic impairment. Again, most recent liver enzymes only mildy elevated (NB I have decreased from 10mg to 5mg when working with him). He feels well physically. He has a [...] with a VA or non-VA provider. /reji/ PERCY CROUCH DO Psychiatrist Signed: 07/05/2025 10:48 PERCY CROUCH Jul 05, 2025 09:47 AM ACCOUNTING OF DISC LOSURES NOTE: LOCAL TITLE: STATE PRESCRIPTION DRUG MONITORING PROGRAM STANDARD TITLE: ACCOUNTING OF DISCLOSURES NOTE DATE OF NOTE: JUL 05, 2025@09:47:15 ENTRY DATE: JUL 05, 2025@09:47:15 AUTHOR: PERCY CRUOCH EXP COSIGNER: URGENCY: STATUS: COMPLETED This PDMP query was submitted by Percy Crouch MD. The clinical justification for this PDMP query is to review controlled substances prescribed outside of the [facility], and any additional information that may become available, as an important component of standard clinical care, and in accordance with [facility] policy. Patient information was shared with the PDMP [place]. No prescription(s) for controlled substances outside the [facility] were found in the last 90 days. /reji/ PERCY CROUCH DO Psychiatrist Signed: 07/05/2025 09:47 PERCY CROUCH
--- OUTSIDE RECORDS SUMMARY | 2025-07-27 05:52 | XMS_ITS | Continuity of Care Document ---
Author Name [facility] Organization [facility] Care Team Providers [employer] Manager Name Role Phone [facility] Unavailable Unavailable Problems Combined list of problems from Department of Defense and Veterans Affairs facilities. It does not include entries that were removed or entered in error. Problem Status Onset Date Problem Type Date of Resolution Comments Source Alcoholic cirrhosis Active Condition [facility] Allergic Rhinitis (SCT 32234934) Active Condition [facility] Anxiety (SNOMED CT 61745279) Active Condition Dec 23, 2019 Entered By: TIANA CROUCH Comment: reviewedGa2020 Entered By: TIANA CROUCH Comment: reviewed [place] Aortic stenosis Active Condition Nov 25, 2017 Entered By: JAYLEN HERMAN Comment: echo 11/15 mild , LVEF 55-60%, mild LVHMar 2020 Entered By: JAYLEN HERMAN Comment: 02/21/21 NSR, septal infart, age undeterminedJan 2024 Entered By: TAO CEE Comment: 12/02/24 echo shows severe aortic stenosisJul 2024 Entered By: SELENA ADAN Comment: s/p TAVR Feb 2025 [facility] Bilateral hearing loss Active Condition [place] Cardiac pacemaker in situ Active Condition [place] ([facility]) Carotid atherosclerosis Active Condition Dec 05, 2024 Entered By: TAO CEE Comment: approx 50% noted bilaterally on US 12/05/24 [facility] Chronic heart failure Active Condition Mar 09, 2025 Entered By: TAO CEE Comment: 02/02/25 recent acute exacerbationJul 2024 Entered By: SELENA ADAN Comment: HFpEF [facility] Chronic post-traumatic stress disorder (SNOMED CT 342687654) Active Condition April 17, 2021 Entered By: TIANA CROUCH Comment[facility] Coronary atherosclerosis Active Condition Mar 09, 2025 Entered By: TAO CEE Comment: s/p CT, two stent placement [facility] Family medical history Active Condition Jul 11, 2024 Entered By: TAO CEE Comment: DM2Aug 2023 Entered By: TAO CEE Comment: colon CAAug 2023 Entered By: TAO CEE Comment: prostate CAAug 2023 Entered By: TAO CEE Comment: ETOHAug 2023 Entered By: TAO CEE Comment: TRD [place] H/O: alcoholism Active Condition Sep 30, 2021 Entered By: TIANA CROUCH Comment: denies recent drinkingFeb 2021 Entered By: TIANA CROUCH Comment: last drink 2018 [facility] History of polyp of colon Active Condition Mar 26, 2017 Entered By: JAYLEN HERMAN Comment: colon 03/12/17 repeat 5 years [place] History of surgery Active Condition Jul 11, 2024 Entered By: TAO CEE Comment: tonsillectomy adenoidectomyAug 2023 Entered By: TAO CEE Comment: vasectomyAug 2023 Entered By: TAO CEE Comment: appendectomyAug 2023 Entered By: TAO CEE Comment: umbilical hernia repairAug 2023 Entered By: TAO CEE Comment: nasal polyp removal 2024 Entered By: TAO CEE Comment: cardiac stent x 2 [facility] Hyperlipidemia (SCT 88244753) Active Condition [place] ([facility]) Hypertension (SNOMED CT 60325093) Active Condition [place] Insomnia (SNOMED CT 937360257) Active Condition Dec 23, 2019 Entered By: TIANA CROUCH Comment: reviewedGa2020 Entered By: TIANA CROUCH Comment: reviewed [place] Liver function tests abnormal Active Condition Nov 29, 2019 Entered By: JAYLEN HERMAN Comment: Hep panel done 11/28/16De 2018 Entered By: JAYLEN HERMAN Comment: abd U/S 11/04/16 fatty liverJan 2020 Entered By: JAYLEN HERMAN Comment: mod-severe fibrosis liver elastography 12/20/19 + 12/20 [place] Lower urinary tract symptoms due to benign prostatic hypertrophy Active Condition Aug 29, 2024 Entered By: TAO CEE Comment: urinary incontinence, hesitancy, weak stream [facility] Obesity Active Condition Aug 29 Entered By: TAO CEE Comment: 07/13/24 BMI 40Oct 2023 Entered By: TAO CEE Comment: 08/29/24 BMI 39 [facility] Obstructive sleep apnea syndrome Active Condition Aug 29, 2024 Entered By: TAO CEE Comment: doesn't wear cpap [facility] Incipient senile cataract (ICD-9-CM 366.12/366.10) Inactive Condition 11/09/2024 [facility] Plantar Fasciitis Inactive Condition 07/11/2024 [place] Sprain of ligament of left thumb Inactive Condition 03/07/2024 [facility] Vitamin B 12 Deficiency Inactive Condition 08/29/2024 [place] Diagnosis: ICD-10-CM F43.12 Post-traumatic stress disorder, chronic Active Diagnosis [place] Diagnosis: ICD-10-CM I25.10 Athscl heart disease of [place] coronary artery w/o ang pctrs Active Diagnosis [place] Diagnosis: ICD-10-CM I35.0 Nonrheumatic aortic (valve) stenosis Active Diagnosis [facility] Diagnosis: ICD-10-CM R93.2 Abnormal findings on dx imaging of liver and biliary tract Active Diagnosis [facility] Diagnosis: ICD-10-CM K70.30 Alcoholic cirrhosis of liver without ascites Active Diagnosis [place] Diagnosis: ICD-10-CM H25.13 Age-related nuclear cataract, bilateral Active Diagnosis [facility] Diagnosis: ICD-10-CM N40.1 Benign prostatic hyperplasia with lower urinary tract symp Active Diagnosis [place] Diagnosis: ICD-10-CM J30.9 Allergic rhinitis, unspecified Active Diagnosis [place] Diagnosis: ICD-10-CM R04.0 Epistaxis Active Diagnosis [facility] Diagnosis: ICD-10-CM J33.0 Polyp of nasal cavity Active Diagnosis [place] Diagnosis: ICD-10-CM I10 Essential (primary) hypertension Active Diagnosis [place] Medications Combined list of outpatient medications from Department of Defense and Veterans Affairs facilities.Medications provided include 1) outpatient medications from the last 15 months, and 2) patient-reported medications. Medication Details Route Status Patient Instructions Prescription Expires Prescription Number Last Dispense Date Ordering Provider Order Date Order Qty Source A&D OINTMENT OINT,TOP APPLY NORMAL SALINE GEL TOPICALL Y TOPICA L ACTIVE Felicity CEE 2023 IELD ALBUTEROL 90MCG/ACTUA T (CFC-F) INHL,ORAL,8 .5GM DOSE COUNTER INHALE 1 TO 2 PUFFS BY MOUTH EVERY 6 HOURS NEEDED FOR [place] PASM RESPIR ATORY (INHAL ATION) ACTIVE 02/24/2026 [id number] Felicity CEE 2024 3 IELD ASPIRIN 81MG TAB,EC TAKE ONE TABLET BY MOUTH ONCE DAILY ORAL ACTIVE Felicity CEE 2024 IELD ATORVASTATI N CA 80MG TAB TAKE ONE TABLET BY MOUTH AT BEDTIME ORAL ACTIVE Felicity CEE 2024 IELD CLOPIDOGREL BISULFATE 75MG TAB TAKE ONE TABLET BY MOUTH ONCE DAILY ORAL ACTIVE Felicity CEE 2024 IELD FLUOXETINE HCL 10MG CAP TAKE THREE CAPSULES BY MOUTH EVERY MORNING FOR MOOD ### ORAL ACTIVE 07/06/2026 [id number] 5 NIYA CROUCH 2024 90 [place] FLUOXETINE HCL 10MG CAP TAKE THREE CAPSULES BY MOUTH EVERY MORNING FOR MOOD ORAL DISCONT INUED 04/06/2026 [id number] 5 NIYA CROUCH ELISABETH 2024 90 [place] FLUOXETINE HCL 10MG CAP TAKE THREE CAPSULES BY MOUTH EVERY MORNING FOR MOOD ORAL DISCONT INUED 09/29/2025 [id number] 5 NIYA CROUCH ELISABETH 2023 90 [place] FLUOXETINE HCL 10MG CAP TAKE THREE CAPSULES BY MOUTH EVERY MORNING FOR MOOD ORAL DISCONT INUED 06/30/2025 [id number] 4 NIYA CROUCH ELISABETH 2023 90 [place] FLUOXETINE HCL 10MG CAP TAKE THREE CAPSULES BY MOUTH EVERY MORNING FOR MOOD ORAL DISCONT INUED 03/31/2025 [id number] 4 NIYA CROUCH ELISABETH 2023 90 [place] FUROSEMIDE 20MG TAB TAKE ONE TABLET BY MOUTH ONCE DAILY ORAL ACTIVE Felicity CEE 2024 [place] HYDROCHLORO THIAZIDE 25MG/LISINO PRIL 20MG TAB TAKE 1 TABLET BY MOUTH ONCE DAILY FOR HIGH BLOOD PRESSURE ORAL DISCONT INUED BY PROVIDE R 08/30/2025 [id number] 5 Felicity CEE 2023 90 [place] HYDROCHLORO THIAZIDE 25MG/LISINO PRIL 20MG TAB TAKE 1 TABLET BY MOUTH ONCE DAILY FOR HIGH BLOOD PRESSURE ORAL DISCONT INUED 08/31/2024 [id number] 4 JESSICA BELL 2022 90 [place] LISINOPRIL 10MG TAB TAKE ONE TABLET BY MOUTH ONCE DAILY TO CONTROL BLOOD PRESSURE ORAL ACTIVE 06/10/2026 [id number] SELENA ADAN 2024 90 [place] LORATADINE 10MG TAB TAKE ONE TABLET BY MOUTH ONCE DAILY FOR ALLERGY ORAL ACTIVE 06/10/2026 [id number] 5 SELENA ADAN 2024 90 [place] LORATADINE 10MG TAB TAKE ONE TABLET BY MOUTH ONCE DAILY FOR ALLERGY ORAL DISCONT INUED 08/10/2025 [id number] SOFYA FRITZ R 2023 90 [facility] METOPROLOL TARTRATE 25MG TAB TAKE ONE-HALF TABLET BY MOUTH TWICE DAILY ORAL ACTIVE Felicity CEE 2024 [place] MULTIVITAMI NS W/MINERALS TAB TAKE ONE TABLET BY MOUTH DAILY ORAL ACTIVE EDUARD BrasherMADISON Lauryn 2009 [place] SODIUM CHLORIDE GEL,NASAL USE SUFFICIE NT AMOUNT IN THE NOSE THREE TIMES A DAY FOR DRY NOSE NASAL DISCONT INUED BY PROVIDE R 08/10/2025 [id number] SOFYA FRITZ R 2023 30 [facility] TAMSULOSIN HCL 0.4MG CAP TAKE TWO CAPSULES BY MOUTH AT BEDTIME ORAL ACTIVE 06/10/2026 [id number] 5 SELENA ADAN 2024 180 [place] TAMSULOSIN HCL 0.4MG CAP TAKE ONE CAPSULE BY MOUTH AT BEDTIME ORAL DISCONT INUED (EDIT) 08/30/2025 [id number] 5 Felicity CEE 2023 90 [place] TAMSULOSIN HCL 0.4MG CAP TAKE ONE CAPSULE BY MOUTH AT BEDTIME ORAL DISCONT INUED 03/18/2025 [id number] 4 Felicity CEE 2023 90 [place] ZOLPIDEM TARTRATE 10MG TAB TAKE ONE TABLET BY MOUTH AT BEDTIME NEEDED FOR SLEEP ORAL DISCONT INUED 12/30/2024 [id number] 4 NIYA CROUCH 2023 25 [place] ZOLPIDEM TARTRATE 10MG TAB TAKE ONE TABLET BY MOUTH AT BEDTIME NEEDED FOR SLEEP ORAL DISCONT INUED 09/30/2024 [id number] 4 NIYA CROUCH 2023 25 [place] ZOLPIDEM TARTRATE 10MG TAB TAKE ONE TABLET BY MOUTH AT BEDTIME NEEDED FOR SLEEP ORAL 03/31/2025 [id number] 5 NIYA CROUCH 2023 25 [place] ZOLPIDEM TARTRATE 5MG TAB TAKE ONE TABLET BY MOUTH AT BEDTIME NEEDED FOR SLEEP ORAL ACTIVE 01/05/2026 [id number] 5 NIYA CROUCH 2024 30 [place] ZOLPIDEM TARTRATE 5MG TAB TAKE ONE TABLET BY MOUTH AT BEDTIME NEEDED FOR SLEEP ORAL DISCONT INUED (EDIT) 10/06/2025 [id number] 5 NIYA CROUCH 2024 20 [facility] IELD Immunizations Combined list of available immunizations from the Department of Defense and Veterans Affairs facilities. Immunization Series Date Given Administered By Site Reaction Lot Number CVX Code Drug Gun Fitter Status Comments Source PNEUMOCOCCAL POLYSACCHARID E PPV23 2023 NATALYA SANDY RIGHT DELTO ID [id number] 33 complet ed [facility] TDAP 2023 NATALYA SANDY RIGHT DELTO ID [id number] 115 complet ed [facility] HEP A, ADULT 2 2020 NONE 52 complet ed [place] COVID-19 (MODERNA), MRNA, LNP-S, PF, 100 MCG/0.5 ML DOSE 2 2020 207 complet ed MOD; [id number]; 1 [place] COVID-19 (MODERNA), MRNA, LNP-S, PF, 100 MCG/0.5 ML DOSE 1 2020 207 complet ed MOD; [id number]; 1 [place] HEP A, ADULT 1 2019 NONE 52 complet ed [place] ZOSTER RECOMBINANT 2 2017 187 complet ed [place] ZOSTER RECOMBINANT 1 2017 187 complet ed [place] PNEUMOCOCCAL CONJUGATE PCV 13 2014 133 complet ed [facility] DTAP, UNSPECIFIED FORMULATION 2013 107 complet ed Site: Left Deltoid [facility] PNEUMOCOCCAL, UNSPECIFIED FORMULATION 2012 109 complet ed Site: Right Deltoid [facility] ZOSTER (HISTORICAL) 2011 121 complet ed [facility] TD(ADULT) UNSPECIFIED FORMULATION 2009 139 complet ed [facility] Results Combined list of recent chemistry, hematology and other laboratory results from Department of Defense and Veterans Affairs, ranging from 15 months to all on record, depending upon the facility. Order Name Results Value Reference Range Date Interpretation Specimen Comments Source TSH THYROTROPIN [UNITS/VOLU ME] IN SERUM OR PLASMA BY DETECTION LIMIT <= 0.005 MIU/L 1.99 u[IU]/ mL 0.35 - 4.94 06/08 Specimen Type: SERUM No comment entered. Ordering Provider: LUNA ADAN Report Released Date/Time: May 25, 2025 09:35 AM Reporting Lab: [facility] [address] [address] Performing Lab: [facility] [address] [address] [address] [place] LIPID PANEL FASTING CHOLESTEROL [MASS/VOLUM E] IN SERUM OR PLASMA 104 mg/dL 06/08 Specimen Type: SERUM Comment: notified of corrected report 06/09/25 at 1610 by JEREMY SODIUM reported incorrectly as 135 by [[id number] 31]. Changed to 140 on Jun 09, 2025@17:41 by [[id number] 31]. SODIUM flagged incorrectly as L by [[id number] 31]. Changed to normal on Jun 09, 2025@17:41 by [[id number] 31]. POTASSIUM reported incorrectly as 4.2 by [[id number] 31]. Changed to 4.4 on Jun 09, 2025@17:41 by [[id number] 31]. CHLORIDE reported incorrectly as 103 by [[id number] 31]. Changed to 106 on Jun 09, 2025@17:41 by [[id number] 31]. Ordering Provider: LUNA ADAN Report Released Date/Time: May 25, 2025 09:35 AM Reporting Lab: [facility] [address] [address] Performing Lab: [facility] [address] [address] [place] LIPID PANEL FASTING TRIGLYCERID E [MASS/VOLUM E] IN SERUM OR PLASMA 123 mg/dL 0 - 150 06/08 Specimen Type: SERUM Comment: notified of corrected report 06/09/25 at 1610 by JEREMY SODIUM reported incorrectly as 135 by [[id number] 31]. Changed to 140 on Jun 09, 2025@17:41 by [[id number] 31]. SODIUM flagged incorrectly as L by [[id number] 31]. Changed to normal on Jun 09, 2025@17:41 by [[id number] 31]. POTASSIUM reported incorrectly as 4.2 by [[id number] 31]. Changed to 4.4 on Jun 09, 2025@17:41 by [[id number] 31]. CHLORIDE reported incorrectly as 103 by [[id number] 31]. Changed to 106 on Jun 09, 2025@17:41 by [[id number] 31]. Ordering Provider: LUNA ADAN Report Released Date/Time: May 25, 2025 09:35 AM Reporting Lab: [facility] [employer] [address] Performing Lab: [address] [address] [facility] LIPID PANEL FASTING CHOLESTEROL IN LDL [MASS/VOLUM E] IN SERUM OR PLASMA BY CALCULATION 42 mg/dL 0 - 129 06/08 Specimen Type: SERUM Comment: notified of corrected report 06/09/25 at 1610 by JEREMY SODIUM reported incorrectly as 135 by [[id number] 31]. Changed to 140 on Jun 09, 2025@17:41 by [[id number] 31]. SODIUM flagged incorrectly as L by [[id number] 31]. Changed to normal on Jun 09, 2025@17:41 by [[id number] 31]. POTASSIUM reported incorrectly as 4.2 by [[id number] 31]. Changed to 4.4 on Jun 09, 2025@17:41 by [[id number] 31]. CHLORIDE reported incorrectly as 103 by [[id number] 31]. Changed to 106 on Jun 09, 2025@17:41 by [[id number] 31]. Ordering Provider: LUNA ADAN Report Released Date/Time: May 25, 2025 09:35 AM Reporting Lab: [facility] [address] [address] Performing Lab: [address] [address] [place] LIPID PANEL FASTING CHOLESTEROL .TOTAL/CHOL ESTEROL IN HDL [MASS RATIO] IN SERUM OR PLASMA 2.8 06/08 Specimen Type: SERUM Comment: notified of corrected report 06/09/25 at 1610 by JEREMY SODIUM reported incorrectly as 135 by [[id number] 31]. Changed to 140 on Jun 09, 2025@17:41 by [[id number] 31]. SODIUM flagged incorrectly as L by [[id number] 31]. Changed to normal on Jun 09, 2025@17:41 by [[id number] 31]. POTASSIUM reported incorrectly as 4.2 by [[id number] 31]. Changed to 4.4 on Jun 09, 2025@17:41 by [[id number] 31]. CHLORIDE reported incorrectly as 103 by [[id number] 31]. Changed to 106 on Jun 09, 2025@17:41 by [[id number] 31]. Ordering Provider: LUNA ADAN Report Released Date/Time: May 25, 2025 09:35 AM Reporting Lab: [address] [address] Performing Lab: [address] [address] [employer] LD LIPID PANEL FASTING CHOLESTEROL IN HDL [MASS/VOLUM E] IN SERUM OR PLASMA 37 mg/dL 40 06/08 L Specimen Type: SERUM Comment: notified of corrected report 06/09/25 at 1610 by JEREMY SODIUM reported incorrectly as 135 by [[id number] 31]. Changed to 140 on Jun 09, 2025@17:41 by [[id number] 31]. SODIUM flagged incorrectly as L by [[id number] 31]. Changed to normal on Jun 09, 2025@17:41 by [[id number] 31]. POTASSIUM reported incorrectly as 4.2 by [[id number] 31]. Changed to 4.4 on Jun 09, 2025@17:41 by [[id number] 31]. CHLORIDE reported incorrectly as 103 by [[id number] 31]. Changed to 106 on Jun 09, 2025@17:41 by [[id number] 31]. Ordering Provider: LUNA ADAN Report Released Date/Time: May 25, 2025 09:35 AM Reporting Lab: [address] [address] Performing Lab: [address] [address] [place] LIVER FUNCTION PROTEIN [MASS/VOLUM E] IN SERUM OR PLASMA 7.7 g/dL 6.4 - 8.3 06/08 Specimen Type: SERUM Comment: notified of corrected report 06/09/25 at 1610 by JEREMY SODIUM reported incorrectly as 135 by [[id number] 31]. Changed to 140 on Jun 09, 2025@17:41 by [[id number] 31]. SODIUM flagged incorrectly as L by [[id number] 31]. Changed to normal on Jun 09, 2025@17:41 by [[id number] 31]. POTASSIUM reported incorrectly as 4.2 by [[id number] 31]. Changed to 4.4 on Jun 09, 2025@17:41 by [[id number] 31]. CHLORIDE reported incorrectly as 103 by [[id number] 31]. Changed to 106 on Jun 09, 2025@17:41 by [[id number] 31]. Ordering Provider: LUNA ADAN Report Released Date/Time: May 25, 2025 09:35 AM Reporting Lab: [address] [address] Performing Lab: [facility] [address] [address] [facility] LIVER FUNCTION ALBUMIN [MASS/VOLUM E] IN SERUM OR PLASMA BY BROMOCRESOL PURPLE (BCP) DYE BINDING METHOD 4.3 g/dL 3.2 - 4.6 06/08 Specimen Type: SERUM Comment: notified of corrected report 06/09/25 at 1610 by JEREMY SODIUM reported incorrectly as 135 by [[id number] 31]. Changed to 140 on Jun 09, 2025@17:41 by [[id number] 31]. SODIUM flagged incorrectly as L by [[id number] 31]. Changed to normal on Jun 09, 2025@17:41 by [[id number] 31]. POTASSIUM reported incorrectly as 4.2 by [[id number] 31]. Changed to 4.4 on Jun 09, 2025@17:41 by [[id number] 31]. CHLORIDE reported incorrectly as 103 by [[id number] 31]. Changed to 106 on Jun 09, 2025@17:41 by [[id number] 31]. Ordering Provider: LUNA ADAN Report Released Date/Time: May 25, 2025 09:35 AM Reporting Lab: [address] [address] Performing Lab: [address] [address] [facility] LIVER FUNCTION ALKALINE PHOSPHATASE [ENZYMATIC ACTIVITY/VO LUME] IN SERUM OR PLASMA 136 U/L 40 - 150 06/08 Specimen Type: SERUM Comment: notified of corrected report 06/09/25 at 1610 by JEREMY SODIUM reported incorrectly as 135 by [[id number] 31]. Changed to 140 on Jun 09, 2025@17:41 by [[id number] 31]. SODIUM flagged incorrectly as L by [[id number] 31]. Changed to normal on Jun 09, 2025@17:41 by [[id number] 31]. POTASSIUM reported incorrectly as 4.2 by [[id number] 31]. Changed to 4.4 on Jun 09, 2025@17:41 by [[id number] 31]. CHLORIDE reported incorrectly as 103 by [[id number] 31]. Changed to 106 on Jun 09, 2025@17:41 by [[id number] 31]. Ordering Provider: LUNA ADAN Report Released Date/Time: May 25, 2025 09:35 AM Reporting Lab: [facility] [address] [address] Performing Lab: [facility] [address] [address] [place] LIVER FUNCTION ASPARTATE AMINOTRANSF ERASE [ENZYMATIC ACTIVITY/VO LUME] IN SERUM OR PLASMA BY WITH P-5'-P 75 U/L 5 - 34 06/08 H Specimen Type: SERUM Comment: notified of corrected report 06/09/25 at 1610 by JEREMY SODIUM reported incorrectly as 135 by [[id number] 31]. Changed to 140 on Jun 09, 2025@17:41 by [[id number] 31]. SODIUM flagged incorrectly as L by [[id number] 31]. Changed to normal on Jun 09, 2025@17:41 by [[id number] 31]. POTASSIUM reported incorrectly as 4.2 by [[id number] 31]. Changed to 4.4 on Jun 09, 2025@17:41 by [[id number] 31]. CHLORIDE reported incorrectly as 103 by [[id number] 31]. Changed to 106 on Jun 09, 2025@17:41 by [[id number] 31]. Ordering Provider: LUNA ADAN Report Released Date/Time: May 25, 2025 09:35 AM Reporting Lab: [facility] [address] [address] Performing Lab: [address] [address] [place] LIVER FUNCTION ALANINE AMINOTRANSF ERASE [ENZYMATIC ACTIVITY/VO LUME] IN SERUM OR PLASMA BY WITH P-5'-P 48 U/L 0 - 55 06/08 Specimen Type: SERUM Comment: notified of corrected report 06/09/25 at 1610 by JEREMY SODIUM reported incorrectly as 135 by [[id number] 31]. Changed to 140 on Jun 09, 2025@17:41 by [[id number] 31]. SODIUM flagged incorrectly as L by [[id number] 31]. Changed to normal on Jun 09, 2025@17:41 by [[id number] 31]. POTASSIUM reported incorrectly as 4.2 by [[id number] 31]. Changed to 4.4 on Jun 09, 2025@17:41 by [[id number] 31]. CHLORIDE reported incorrectly as 103 by [[id number] 31]. Changed to 106 on Jun 09, 2025@17:41 by [[id number] 31]. Ordering Provider: LUNA ADAN Report Released Date/Time: May 25, 2025 09:35 AM Reporting Lab: [facility] [employer] [address] [address] Performing Lab: [facility] [employer] [address] [address] [place] LIVER FUNCTION BILIRUBIN.T OTAL [MASS/VOLUM E] IN SERUM OR PLASMA 1.5 mg/dL 0.2 - 1.2 06/08 H Specimen Type: SERUM Comment: notified of corrected report 06/09/25 at 1610 by JEREMY SODIUM reported incorrectly as 135 by [[id number] 31]. Changed to 140 on Jun 09, 2025@17:41 by [[id number] 31]. SODIUM flagged incorrectly as L by [[id number] 31]. Changed to normal on Jun 09, 2025@17:41 by [[id number] 31]. POTASSIUM reported incorrectly as 4.2 by [[id number] 31]. Changed to 4.4 on Jun 09, 2025@17:41 by [[id number] 31]. CHLORIDE reported incorrectly as 103 by [[id number] 31]. Changed to 106 on Jun 09, 2025@17:41 by [[id number] 31]. Ordering Provider: LUNA ADAN Report Released Date/Time: May 25, 2025 09:35 AM Reporting Lab: [address] [address] Performing Lab: [address] [address] [place] LIVER FUNCTION BILIRUBIN.D IRECT [MASS/VOLUM E] IN SERUM OR PLASMA 0.5 mg/dL 0 - 0.5 06/08 Specimen Type: SERUM Comment: notified of corrected report 06/09/25 at 1610 by JEREMY SODIUM reported incorrectly as 135 by [[id number] 31]. Changed to 140 on Jun 09, 2025@17:41 by [[id number] 31]. SODIUM flagged incorrectly as L by [[id number] 31]. Changed to normal on Jun 09, 2025@17:41 by [[id number] 31]. POTASSIUM reported incorrectly as 4.2 by [[id number] 31]. Changed to 4.4 on Jun 09, 2025@17:41 by [[id number] 31]. CHLORIDE reported incorrectly as 103 by [[id number] 31]. Changed to 106 on Jun 09, 2025@17:41 by [[id number] 31]. Ordering Provider: LUNA ADAN Report Released Date/Time: May 25, 2025 09:35 AM Reporting Lab: [address] [address] Performing Lab: [address] [address] [place] HEMOGLOBI N A1C PANEL HEMOGLOBIN A1C/HEMOGLO BIN.TOTAL IN BLOOD 5.6 4.0 - 5.6 06/08 Specimen Type: BLOOD Comment: Values obtained from A1C measurement s can vary. For atypical A1C assays, a reported value of 7.0 could actually be between 6.72 and 7.28 if measured by a reference method. A reported value of 9.0 could actually be between 8.73 and 9.27. Ref: http://www. ngsp.org/[place] Pdata.asp Ordering Provider: LUNA ADAN Report Released Date/Time: May 25, 2025 09:35 AM Reporting Lab: [address] [address] Performing Lab: [address] [address] [place] BASIC METABOLIC PANEL (fasting) UREA NITROGEN [MASS/VOLUM E] IN SERUM OR PLASMA 24 mg/dL 8 - 06/08 Specimen Type: SERUM Comment: notified of corrected report 06/09/25 at 1610 by JEREMY SODIUM reported incorrectly as 135 by [[id number] 31]. Changed to 140 on Jun 09, 2025@17:41 by [[id number] 31]. SODIUM flagged incorrectly as L by [[id number] 31]. Changed to normal on Jun 09, 2025@17:41 by [[id number] 31]. POTASSIUM reported incorrectly as 4.2 by [[id number] 31]. Changed to 4.4 on Jun 09, 2025@17:41 by [[id number] 31]. CHLORIDE reported incorrectly as 103 by [[id number] 31]. Changed to 106 on Jun 09, 2025@17:41 by [[id number] 31]. Ordering Provider: LUNA ADAN Report Released Date/Time: May 25, 2025 09:35 AM Reporting Lab: [address] [id number] Performing Lab: [address] [id number] [place] BASIC METABOLIC PANEL (fasting) GLUCOSE [MASS/VOLUM E] IN SERUM OR PLASMA 104 mg/dL 65 - 100 06/08 H Specimen Type: SERUM Comment: notified of corrected report 06/09/25 at 1610 by JEREMY SODIUM reported incorrectly as 135 by [[id number] 31]. Changed to 140 on Jun 09, 2025@17:41 by [[id number] 31]. SODIUM flagged incorrectly as L by [[id number] 31]. Changed to normal on Jun 09, 2025@17:41 by [[id number] 31]. POTASSIUM reported incorrectly as 4.2 by [[id number] 31]. Changed to 4.4 on Jun 09, 2025@17:41 by [[id number] 31]. CHLORIDE reported incorrectly as 103 by [[id number] 31]. Changed to 106 on Jun 09, 2025@17:41 by [[id number] 31]. Ordering Provider: LUNA ADAN Report Released Date/Time: May 25, 2025 09:35 AM Reporting Lab: [facility] [employer] [address] Performing Lab: [address] [address] [place] BASIC METABOLIC PANEL (fasting) SODIUM [MOLES/VOLU ME] IN SERUM OR PLASMA 140 mmol/L 136 - 145 06/08 L Specimen Type: SERUM Comment: notified of corrected report 06/09/25 at 1610 by JEREMY SODIUM reported incorrectly as 135 by [[id number] 31]. Changed to 140 on Jun 09, 2025@17:41 by [[id number] 31]. SODIUM flagged incorrectly as L by [[id number] 31]. Changed to normal on Jun 09, 2025@17:41 by [[id number] 31]. POTASSIUM reported incorrectly as 4.2 by [[id number] 31]. Changed to 4.4 on Jun 09, 2025@17:41 by [[id number] 31]. CHLORIDE reported incorrectly as 103 by [[id number] 31]. Changed to 106 on Jun 09, 2025@17:41 by [[id number] 31]. Ordering Provider: LUNA ADAN Report Released Date/Time: May 25, 2025 09:35 AM Reporting Lab: [facility] [employer] [address] Performing Lab: [address] [address] [facility] BASIC METABOLIC PANEL (fasting) POTASSIUM [MOLES/VOLU ME] IN SERUM OR PLASMA 4.4 mmol/L 3.5 - 5.1 06/08 Specimen Type: SERUM Comment: notified of corrected report 06/09/25 at 1610 by JEREMY SODIUM reported incorrectly as 135 by [[id number] 31]. Changed to 140 on Jun 09, 2025@17:41 by [[id number] 31]. SODIUM flagged incorrectly as L by [[id number] 31]. Changed to normal on Jun 09, 2025@17:41 by [[id number] 31]. POTASSIUM reported incorrectly as 4.2 by [[id number] 31]. Changed to 4.4 on Jun 09, 2025@17:41 by [[id number] 31]. CHLORIDE reported incorrectly as 103 by [[id number] 31]. Changed to 106 on Jun 09, 2025@17:41 by [[id number] 31]. Ordering Provider: LUNA ADAN Report Released Date/Time: May 25, 2025 09:35 AM Reporting Lab: [address] [address] Performing Lab: [address] [address] [facility] BASIC METABOLIC PANEL (fasting) CHLORIDE [MOLES/VOLU ME] IN SERUM OR PLASMA 106 mmol/L 98 - 107 06/08 Specimen Type: SERUM Comment: notified of corrected report 06/09/25 at 1610 by JEREMY SODIUM reported incorrectly as 135 by [[id number] 31]. Changed to 140 on Jun 09, 2025@17:41 by [[id number] 31]. SODIUM flagged incorrectly as L by [[id number] 31]. Changed to normal on Jun 09, 2025@17:41 by [[id number] 31]. POTASSIUM reported incorrectly as 4.2 by [[id number] 31]. Changed to 4.4 on Jun 09, 2025@17:41 by [[id number] 31]. CHLORIDE reported incorrectly as 103 by [[id number] 31]. Changed to 106 on Jun 09, 2025@17:41 by [[id number] 31]. Ordering Provider: LUNA ADAN Report Released Date/Time: May 25, 2025 09:35 AM Reporting Lab: [facility] [address] [address] Performing Lab: [facility] [address] [address] [place] [employer] [place] BASIC METABOLIC PANEL (fasting) CARBON DIOXIDE, TOTAL [MOLES/VOLU ME] IN SERUM OR PLASMA 27 meq/L 23 - 06/08 Specimen Type: SERUM Comment: notified of corrected report 06/09/25 at 1610 by JEREMY SODIUM reported incorrectly as 135 by [[id number] 31]. Changed to 140 on Jun 09, 2025@17:41 by [[id number] 31]. SODIUM flagged incorrectly as L by [[id number] 31]. Changed to normal on Jun 09, 2025@17:41 by [[id number] 31]. POTASSIUM reported incorrectly as 4.2 by [[id number] 31]. Changed to 4.4 on Jun 09, 2025@17:41 by [[id number] 31]. CHLORIDE reported incorrectly as 103 by [[id number] 31]. Changed to 106 on Jun 09, 2025@17:41 by [[id number] 31]. Ordering Provider: LUNA ADAN Report Released Date/Time: May 25, 2025 09:35 AM Reporting Lab: [facility] [address] [address] Performing Lab: [facility] [address] [address] [employer] BASIC METABOLIC PANEL (fasting) CALCIUM [MASS/VOLUM E] IN SERUM OR PLASMA 8.8 mg/dL 8.8 - 10 06/08 Specimen Type: SERUM Comment: notified of corrected report 06/09/25 at 1610 by JEREMY SODIUM reported incorrectly as 135 by [[id number] 31]. Changed to 140 on Jun 09, 2025@17:41 by [[id number] 31]. SODIUM flagged incorrectly as L by [[id number] 31]. Changed to normal on Jun 09, 2025@17:41 by [[id number] 31]. POTASSIUM reported incorrectly as 4.2 by [[id number] 31]. Changed to 4.4 on Jun 09, 2025@17:41 by [[id number] 31]. CHLORIDE reported incorrectly as 103 by [[id number] 31]. Changed to 106 on Jun 09, 2025@17:41 by [[id number] 31]. Ordering Provider: LUNA ADAN Report Released Date/Time: May 25, 2025 09:35 AM Reporting Lab: [facility] [employer] [address] Performing Lab: [facility] [employer] [address] [facility] BASIC METABOLIC PANEL (fasting) CREATININE [MASS/VOLUM E] IN SERUM OR PLASMA 0.93 mg/dL 0.72 - 1.25 06/08 Specimen Type: SERUM Comment: notified of corrected report 06/09/25 at 1610 by JEREMY SODIUM reported incorrectly as 135 by [[id number] 31]. Changed to 140 on Jun 09, 2025@17:41 by [[id number] 31]. SODIUM flagged incorrectly as L by [[id number] 31]. Changed to normal on Jun 09, 2025@17:41 by [[id number] 31]. POTASSIUM reported incorrectly as 4.2 by [[id number] 31]. Changed to 4.4 on Jun 09, 2025@17:41 by [[id number] 31]. CHLORIDE reported incorrectly as 103 by [[id number] 31]. Changed to 106 on Jun 09, 2025@17:41 by [[id number] 31]. Ordering Provider: LUNA ADAN Report Released Date/Time: May 25, 2025 09:35 AM Reporting Lab: [facility] [address] [address] Performing Lab: [facility] [address] [address] [place] BASIC METABOLIC PANEL (fasting) GLOMERULAR FILTRATION RATE/1.73 SQ M.PREDICTED [VOLUME RATE/AREA] IN SERUM, PLASMA OR BLOOD BY CREATININE- BASED FORMULA (CKD-EPI 2020) 84 mL/min 60 06/08 Specimen Type: SERUM Comment: notified of corrected report 06/09/25 at 1610 by JEREMY SODIUM reported incorrectly as 135 by [[id number] 31]. Changed to 140 on Jun 09, 2025@17:41 by [[id number] 31]. SODIUM flagged incorrectly as L by [[id number] 31]. Changed to normal on Jun 09, 2025@17:41 by [[id number] 31]. POTASSIUM reported incorrectly as 4.2 by [[id number] 31]. Changed to 4.4 on Jun 09, 2025@17:41 by [[id number] 31]. CHLORIDE reported incorrectly as 103 by [[id number] 31]. Changed to 106 on Jun 09, 2025@17:41 by [[id number] 31]. Ordering Provider: LUNA ADAN Report Released Date/Time: May 25, 2025 09:35 AM Reporting Lab: [address] [address] Performing Lab: [address] [address] [place] VITAMIN D (25-OH) 25-HYDROXYV ITAMIN D3+25-HYDRO XYVITAMIN D2 [MASS/VOLUM E] IN SERUM OR PLASMA 37.5 ng/mL 20 - 50 06/08 Specimen Type: SERUM No comment entered. Ordering Provider: LUNA ADAN Report Released Date/Time: May 25, 2025 09:35 AM Reporting Lab: [address] [place] [address] Performing Lab: [facility]ENTERTRN [facility] [address] [address] [place] CBC AND DIFF (AUTO) LEUKOCYTES [#/VOLUME] IN BLOOD BY AUTOMATED COUNT 5.67 10*3/u L 4.50 - 11.00 06/08 Specimen Type: BLOOD No comment entered. Ordering Provider: LUNA ADAN Report Released Date/Time: May 25, 2025 09:35 AM Reporting Lab: [facility] [place] [address] [address] Performing Lab: [facility] C[facility]ERN [facility]ENTERUSE[address] [address] [place] CBC AND DIFF (AUTO) ERYTHROCYTE S [#/VOLUME] IN BLOOD BY AUTOMATED COUNT 4.16 10*6/u L 4.23 - 5.66 06/08 L Specimen Type: BLOOD No comment entered. Ordering Provider: LUNA ADAN Report Released Date/Time: May 25, 2025 09:35 AM Reporting Lab: [facility]ENTERUSETS [address] [address] Performing Lab: [facility] CENTERTRN [facility]ENTERUSE[address] [address] [place] CBC AND DIFF (AUTO) HEMOGLOBIN [MASS/VOLUM E] IN BLOOD 12.6 g/dL 12.8 - 17 06/08 L Specimen Type: BLOOD No comment entered. Ordering Provider: LUNA ADAN Report Released Date/Time: May 25, 2025 09:35 AM Reporting Lab: [facility]ENTERTRN [facility]ENTERUSE[address] [address] Performing Lab: [facility]ERRBIB[facility]ICAL CENTERN [facility]ENTERUSE[address] [address] [place] CBC AND DIFF (AUTO) HEMATOCRIT [VOLUME FRACTION] OF BLOOD BY AUTOMATED COUNT 36.2 39.2 - 50.4 06/08 L Specimen Type: BLOOD No comment entered. Ordering Provider: LUNA ADAN Report Released Date/Time: May 25, 2025 09:35 AM Reporting Lab: [facility] [place] [facility] [address] [address] Performing Lab: [facility]ERRN[facility] CENTERTRN [place] [facility] [address] [address] [place] CBC AND DIFF (AUTO) MCV [ENTITIC VOLUME] BY AUTOMATED COUNT 87.0 fL 82 - 99 06/08 Specimen Type: BLOOD No comment entered. Ordering Provider: LUNA ADAN Report Released Date/Time: May 25, 2025 09:35 AM Reporting Lab: [facility] [place] [facility] [address] [address] Performing Lab: [facility]ERRN[facility] CENTERTRN [facility]ENTERUSE[facility] [address] [address] [place] CBC AND DIFF (AUTO) MCHC [MASS/VOLUM E] BY AUTOMATED COUNT 34.8 g/dL 30.8 - 35.1 06/08 Specimen Type: BLOOD No comment entered. Ordering Provider: LUNA ADAN Report Released Date/Time: May 25, 2025 09:35 AM Reporting Lab: [facility] TRN [facility]ENTERUSETS [facility] [address] [address] Performing Lab: [facility] TRN [facility]ENTERUSETS [facility] [address] [address] [place] CBC AND DIFF (AUTO) PLATELETS [#/VOLUME] IN BLOOD BY AUTOMATED COUNT 111 10*3/u L 140 - 360 06/08 L Specimen Type: BLOOD No comment entered. Ordering Provider: LUNA ADAN Report Released Date/Time: May 25, 2025 09:35 AM Reporting Lab: [facility]ENTERTRN [place] [facility] [address] [address] Performing Lab: [facility]ERRN[facility] CENTERTRN [facility]ENTERUSE[facility] [address] [address] [place] CBC AND DIFF (AUTO) PLATELET MEAN VOLUME [ENTITIC VOLUME] IN BLOOD BY AUTOMATED COUNT 11.8 fL 9.2 - 12.4 06/08 Specimen Type: BLOOD No comment entered. Ordering Provider: LUNA ADAN Report Released Date/Time: May 25, 2025 09:35 AM Reporting Lab: [facility] [place] [facility] [address] [address] Performing Lab: [facility] [place] [facility] [address] [address] [place] CBC AND DIFF (AUTO) ERYTHROCYTE DISTRIBUTIO N WIDTH [RATIO] BY AUTOMATED COUNT 14.3 12.0 - 16.0 06/08 Specimen Type: BLOOD No comment entered. Ordering Provider: LUNA ADAN Report Released Date/Time: May 25, 2025 09:35 AM Reporting Lab: [facility] [place] [facility] [address] [address] Performing Lab: [place] [facility] [place] [address] [address] [place] CBC AND DIFF (AUTO) MONOCYTES [#/VOLUME] IN BLOOD BY AUTOMATED COUNT 0.60 10*3/u L 0.30 - 1.10 06/08 Specimen Type: BLOOD No comment entered. Ordering Provider: LUNA ADAN Report Released Date/Time: May 25, 2025 09:35 AM Reporting Lab: [facility] [place] [facility] [address] [address] Performing Lab: [facility] [place] [facility] [address] [address] [place] CBC AND DIFF (AUTO) MCH [ENTITIC MASS] BY AUTOMATED COUNT 30.3 pg 26.2 - 32.6 06/08 Specimen Type: BLOOD No comment entered. Ordering Provider: LUNA ADAN Report Released Date/Time: May 25, 2025 09:35 AM Reporting Lab: [facility] [place] [facility] [address] [address] Performing Lab: [place] [facility] [place] [address] [address] [place] CBC AND DIFF (AUTO) NEUTROPHILS /100 LEUKOCYTES IN BLOOD BY AUTOMATED COUNT 73.7 43.7 - 75.8 06/08 Specimen Type: BLOOD No comment entered. Ordering Provider: LUNA ADAN Report Released Date/Time: May 25, 2025 09:35 AM Reporting Lab: [facility] [facility] [address] [address] Performing Lab: [facility] [place] [facility] [address] [address] [place] CBC AND DIFF (AUTO) LYMPHOCYTES /100 LEUKOCYTES IN BLOOD BY AUTOMATED COUNT 11.6 14.0 - 42.3 06/08 L Specimen Type: BLOOD No comment entered. Ordering Provider: LUNA ADAN Report Released Date/Time: May 25, 2025 09:35 AM Reporting Lab: [facility] [place] [facility] [address] [address] Performing Lab: [facility] [address] [address] [place] CBC AND DIFF (AUTO) MONOCYTES/1 00 LEUKOCYTES IN BLOOD BY AUTOMATED COUNT 10.6 5.1 - 13.7 06/08 Specimen Type: BLOOD No comment entered. Ordering Provider: LUNA ADAN Report Released Date/Time: May 25, 2025 09:35 AM Reporting Lab: [facility]ENTERUSETS [address] [address] Performing Lab: [facility]ENTERUSETS [address] [address] [place] CBC AND DIFF (AUTO) EOSINOPHILS /100 LEUKOCYTES IN BLOOD BY AUTOMATED COUNT 3.5 0.4 - 6.8 06/08 Specimen Type: BLOOD No comment entered. Ordering Provider: LUNA ADAN Report Released Date/Time: May 25, 2025 09:35 AM Reporting Lab: [facility] [place] [address] [address] Performing Lab: [facility] [address] [address] [place] CBC AND DIFF (AUTO) BASOPHILS/1 00 LEUKOCYTES IN BLOOD BY AUTOMATED COUNT 0.4 0.1 - 2.0 06/08 Specimen Type: BLOOD No comment entered. Ordering Provider: LUNA ADAN Report Released Date/Time: May 25, 2025 09:35 AM Reporting Lab: [facility] [place] [address] [address] Performing Lab: [facility]ENTER[facility] [address] [address] [place] CBC AND DIFF (AUTO) NEUTROPHILS [#/VOLUME] IN BLOOD BY AUTOMATED COUNT 4.18 10*3/u L 2.20 - 7.60 06/08 Specimen Type: BLOOD No comment entered. Ordering Provider: LUNA ADAN Report Released Date/Time: May 25, 2025 09:35 AM Reporting Lab: [facility] [address] [address] Performing Lab: [facility]ENTERUSE[address] [address] [place] CBC AND DIFF (AUTO) LYMPHOCYTES [#/VOLUME] IN BLOOD BY AUTOMATED COUNT 0.66 10*3/u L 1.00 - 3.20 06/08 L Specimen Type: BLOOD No comment entered. Ordering Provider: LUNA ADAN Report Released Date/Time: May 25, 2025 09:35 AM Reporting Lab: [facility] [address] [address] Performing Lab: [facility] [address] [address] [place] CBC AND DIFF (AUTO) EOSINOPHILS [#/VOLUME] IN BLOOD BY AUTOMATED COUNT 0.20 10*3/u L 0.03 - 0.44 06/08 Specimen Type: BLOOD No comment entered. Ordering Provider: LUNA ADAN Report Released Date/Time: May 25, 2025 09:35 AM Reporting Lab: [facility] [address] [address] Performing Lab: [facility] [address] [address] [place] CBC AND DIFF (AUTO) BASOPHILS [#/VOLUME] IN BLOOD BY AUTOMATED COUNT 0.02 10*3/u L 0.01 - 0.13 06/08 Specimen Type: BLOOD No comment entered. Ordering Provider: LUNA ADAN Report Released Date/Time: May 25, 2025 09:35 AM Reporting Lab: [facility] [place] [facility] [address] [address] Performing Lab: [facility] [place] [facility] [address] [address] [place] CBC AND DIFF (AUTO) IMMATURE GRANULOCYTE S/100 LEUKOCYTES IN BLOOD BY AUTOMATED COUNT 0.2 0.0 - 0.7 06/08 Specimen Type: BLOOD No comment entered. Ordering Provider: LUNA ADAN Report Released Date/Time: May 25, 2025 09:35 AM Reporting Lab: [facility] [place] [address] [address] Performing Lab: [facility] [address] [address] [place] CBC AND DIFF (AUTO) IMMATURE GRANULOCYTE S [#/VOLUME] IN BLOOD BY AUTOMATED COUNT 0.01 10*3/u L 0.00 - 0.06 06/08 Specimen Type: BLOOD No comment entered. Ordering Provider: LUNA ADAN Report Released Date/Time: May 25, 2025 09:35 AM Reporting Lab: [facility] [place] [facility] [address] [address] Performing Lab: [facility] [place] [address] [address] [place] CBC AND DIFF (AUTO) NUCLEATED ERYTHROCYTE S/100 LEUKOCYTES [RATIO] IN BLOOD BY AUTOMATED COUNT 0.0 0.0 - 0.0 06/08 Specimen Type: BLOOD No comment entered. Ordering Provider: LUNA ADAN Report Released Date/Time: May 25, 2025 09:35 AM Reporting Lab: [facility] [place] [facility] [address] [address] Performing Lab: [facility] [place] [address] [address] [place] CBC AND DIFF (AUTO) NUCLEATED ERYTHROCYTE S [#/VOLUME] IN BLOOD BY AUTOMATED COUNT 0.00 10*3/u L 0.00 - 0.00 06/08 Specimen Type: BLOOD No comment entered. Ordering Provider: LUNA ADAN Report Released Date/Time: May 25, 2025 09:35 AM Reporting Lab: [address] [address] Performing Lab: [address] [address] [place] VITAMIN D (25-OH) 25-HYDROXYV ITAMIN D3 [MASS/VOLUM E] IN SERUM OR PLASMA 36 ng/mL 20 - 50 08/25 Specimen Type: SERUM No comment entered. Ordering Provider: SONAL CEE Report Released Date/Time: Aug 23, 2024 08:43 AM Reporting Lab: [address] [address] Performing Lab: [address] [address] [place] [employer] [place] HEMOGLOBI N A1C PANEL HEMOGLOBIN A1C/HEMOGLO BIN.TOTAL IN BLOOD BY HPLC 5.4 4.0 - 5.6 08/25 Specimen Type: BLOOD Comment: Values obtained from A1C measurement s can vary. For atypical A1C assays, a reported value of 7.0 could actually be between 6.72 and 7.28 if measured by a reference method. A reported value of 9.0 could actually be between 8.73 and 9.27. Ref: http://www. ngsp.org/[place] Pdata.asp Ordering Provider: SONAL CEE Report Released Date/Time: Aug 23, 2024 08:43 AM Reporting Lab: [address] [address] Performing Lab: [address] [address] [place] LIVER FUNCTION PROTEIN [MASS/VOLUM E] IN SERUM OR PLASMA 7.4 g/dL 6.0 - 8.3 08/25 Specimen Type: SERUM No comment entered. Ordering Provider: SONAL CEE Report Released Date/Time: Aug 23, 2024 08:43 AM Reporting Lab: [facility] [place] [facility] [address] [facility] [address] Performing Lab: [facility] [place] [facility] [address] [address] [place] LIVER FUNCTION ALBUMIN [MASS/VOLUM E] IN SERUM OR PLASMA 3.9 g/dL 3.5 - 5.0 08/25 Specimen Type: SERUM No comment entered. Ordering Provider: SONAL CEE Report Released Date/Time: Aug 23, 2024 08:43 AM Reporting Lab: [facility] [place] [facility] [address] [address] Performing Lab: [place] [facility] [place] [address] [address] [place] LIVER FUNCTION ALKALINE PHOSPHATASE [ENZYMATIC ACTIVITY/VO LUME] IN SERUM OR PLASMA 90 U/L 40 - 150 08/25 Specimen Type: SERUM No comment entered. Ordering Provider: SONAL CEE Report Released Date/Time: Aug 23, 2024 08:43 AM Reporting Lab: [facility] [place] [facility] [address] [facility] [address] Performing Lab: [facility] [place] [address] [address] [place] LIVER FUNCTION ASPARTATE AMINOTRANSF ERASE [ENZYMATIC ACTIVITY/VO LUME] IN SERUM OR PLASMA 63 U/L 5 - 34 08/25 H Specimen Type: SERUM No comment entered. Ordering Provider: SONAL CEE Report Released Date/Time: Aug 23, 2024 08:43 AM Reporting Lab: [facility] [place] [facility] [address] [facility] [address] Performing Lab: [facility] [address] [address] [place] LIVER FUNCTION ALANINE AMINOTRANSF ERASE [ENZYMATIC ACTIVITY/VO LUME] IN SERUM OR PLASMA 47 U/L 08/25 Specimen Type: SERUM No comment entered. Ordering Provider: SONAL CEE Report Released Date/Time: Aug 23, 2024 08:43 AM Reporting Lab: [facility] [place] [address] [place] [address] Performing Lab: [facility] [address] [address] GAVIN ZAMBRANO LIVER FUNCTION BILIRUBIN.T OTAL [MASS/VOLUM E] IN SERUM OR PLASMA 0.9 mg/dL 0.2 - 1.2 08/25 Specimen Type: SERUM No comment entered. Ordering Provider: SONAL CEE Report Released Date/Time: Aug 23, 2024 08:43 AM Reporting Lab: [facility] [address] [facility] [address] Performing Lab: [address] [address] GAVIN ZAMBRANO Vital Signs Combined list of inpatient and outpatient Vital Signs from Department of Defense and Veterans Affairs, ranging from 12 months to all on record, depending upon the facility. Vital Sign Value Date Comments Source SYSTOLIC BLOOD PRESSURE 155 06/09/20 10:02:53 [place] DIASTOLIC BLOOD PRESSURE 79 025 10:02:53 [place] PULSE OXIMETRY 96 % 06/09/2025 10:02:53 [place] WEIGHT 252 06/09/2025 10:02:53 [place] BMI 40 kg/m2 06/09/2025 10:02:53 [place] PULSE 65 06/09/2025 10:02:53 [place] SYSTOLIC BLOOD PRESSURE 136 02/24/20 25 10:08:35 [place] DIASTOLIC BLOOD PRESSURE 85 025 10:08:35 [place] PULSE OXIMETRY 98 02/23/2025 10:08:35 [place] WEIGHT 250 02/23/2025 10:08:35 [place] BMI 39 kg/m2 02/23/2025 10:08:35 [place] HEIGHT 67 02/23/2025 10:08:35 [place] TEMPERATURE 97.6 02/23/2025 10:08:35 [place] PULSE 82 02/23/2025 10:08:35 [place] RESPIRATION 19 02/23/2025 10:08:35 [place] SYSTOLIC BLOOD PRESSURE 135 11/09/20 24 11:41:47 [place] DIASTOLIC BLOOD PRESSURE 81 024 11:41:47 [place] PULSE OXIMETRY 95 11/09/2024 11:41:47 [place] WEIGHT 248 11/09/2024 11:41:47 [place] BMI 39 kg/m2 11/09/2024 11:41:47 [place] HEIGHT 67 11/09/2024 11:41:47 [place] TEMPERATURE 97.9 11/09/2024 11:41:47 [place] PULSE 80 11/09/2024 11:41:47 [place] RESPIRATION 19 11/09/2024 11:41:47 [place] SYSTOLIC BLOOD PRESSURE 116 08/29/20 24 10:13:57 [place] DIASTOLIC BLOOD PRESSURE 73 024 10:13:57 [place] PULSE OXIMETRY 95 08/29/2024 10:13:57 [place] WEIGHT 248 08/29/2024 10:13:57 [place] BMI 39 kg/m2 08/29/2024 10:13:57 [place] HEIGHT 67 08/29/2024 10:13:57 [place] TEMPERATURE 97.8 08/29/2024 10:13:57 [place] PULSE 92 08/29/2024 10:13:57 [place] RESPIRATION 19 08/29/2024 10:13:57 [place] SYSTOLIC BLOOD PRESSURE 130 08/09/20 24 08:31:25 [facility] DIASTOLIC BLOOD PRESSURE 80 024 08:31:25 [facility] PULSE OXIMETRY 94 08/09/2024 08:31:25 [facility] PAIN 0 08/09/2024 08:31:25 [facility] PULSE 93 08/09/2024 08:31:25 [facility] RESPIRATION 20 08/09/2024 08:31:25 [facility] Encounters Combined list of: 1) Encounters from [facility] going backup to the last 18 months, not all [facility] inpatient encounters are included; 2) Encounters from the [facility] facilities going backup to 280 months. Location Location Details Encounter Type Encounter Number Reason For Visit Attending Provider ADM Date DC Date Status Disposition Source [facility] Outpatient Encounter [id number] 02/28 [facility] Outpatient [facility]counter [id number] 03/01 [facility] Outpatient [facility]counter [id number] 03/04 [facility] Outpatient Encounter [id number] 03/04 [facility] [place] OFF[place] O/P EST MOD 30 MIN [id number] Diagnos is: ICD-10- CM I10 Essenti al (primar y) hyperte nsion MICHELINE CEE 03/07 [place] [facility] [place] ADMIN [id number] MICHELINE CEE C 03/07 [facility] Outpatient Encounter [id number] 03/16 [facility] Out[facility] Encounter [id number] [id number] 03/16 [facility] Outpatient Encounter [id number] 03/18 [facility] [place] O/P EST MOD 30 MIN [id number] Diagnos is: ICD-10- CM F43.12 Post-tr aumatic stress disorde r, chronic WILLA,MARGE AN 03/30 [place] [facility] OFF/OP CONSLTJ NEW/[place] HI 55 [id number] Diagnos is: ICD-10- CM R04.0 Epistax is FATUMA FRITZ R 03/31 [facility] Out[facility] Encounter [id number] 06/15 [facility] [place] O/P EST MOD 30 MIN [id number] Diagnos is: ICD-10- CM F43.12 Post-tr aumatic stress disorde r, chronic LARROW,MARGE AN 06/29 [place] O/P EST MOD 30 MIN [id number] Diagnos is: ICD-10- CM 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 Diagnos is: ICD-10- CM R04.0 Epistax is FATUMA FRITZ 07/14 [facility] OFF[facility] O/P EST LOW 20 MIN [id number] 1. Diagnos is: ICD-10- CM R04.0 Epistax is FATUMA FRITZ R 08/09 [facility] [place] QNHP OL DIG ASSMT&MGMT 5-10 [id number] [id number] Diagnos is: ICD-10- CM J30.9 Allergi c rhiniti s, unspeci fied IBETH LOPEZ IE 08/09 [place] [facility] Outpatient Encounter [id number] 08/23 [facility] Out[facility] Encounter [id number] 08/24 [facility] [place] O/P EST MOD 30 MIN [id number] 1BY. 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 67 Diagnos is: ICD-10- CM F43.12 Post-tr aumatic stress disorde r, chronic LARROW,MARGE AN 09/28 [place] [facility] COMPRE OPH EXAM EST PT 1/> [id number] 1. Diagnos is: ICD-10- CM H25.13 Age-rel ated nuclear catarac t, bilater al DOROTEO,AN QUINCY E 10/03 [facility] Out[facility] Encounter [id number]/20 [facility] Out[facility] Encounter [id number] 10/24 [facility] Out[facility] Encounter [id number] [id number]/28 [facility] Out[facility] Encounter [id number] [id number] 10/31 [facility] Out[facility] Encounter [id number] 10/31 [facility] Out[facility] Encounter [id number] 1.10/31 [facility] Outpatient Encounter [id number] 1.11/02 [facility] Out[facility] Encounter [id number] [facility] OFFICE O/P EST HI 40 MIN 45802-2.63 1BY. 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 MICHELINE CEE 11/09 [place] [facility] Outpatient Encounter [id number] 11/09 [facility] Outpatient [facility]counter [id number] 11/14 [facility] Outpatient Encounter [id number] [id number] 11/16 [facility] Outpatient Encounter [id number] Diagnos is: ICD-10- CM R93.2 Abnorma l finding s on dx imaging of liver and biliary tract SILVINO FELIZ 11/28 [facility] Outpatient Encounter [id number] 11/29 [facility] TTE W/DOPPLER COMPLETE [id number] 1BY. 65 Diagnos is: ICD-10- CM I35.0 Nonrheu matic aortic (valve) stenosi ROBERT Barragan 12/02 [place] [facility] EST M[facility] X REQ PHY/QHP [id number] Diagnos is: ICD-10- CM I35.0 Nonrheu matic aortic (valve) stenosi AIRAM Iverson UL U 12/02 [facility] Outpatient Encounter [id number] 12/03 [facility] Out[facility] Encounter [id number] [id number] 12/12 [facility] Out[facility] Encounter [id number] [id number] 12/15 [facility] Out[facility] Encounter [id number] 12/21 [facility] Out[facility] Encounter [id number] [id number] 12/23 [facility] Out[facility] Encounter [id number] [id number] 12/26 [facility] Out[facility] Encounter [id number] [id number] 12/27 [facility] Out[facility]counter [id number] [id number] 12/27 [facility] Out[facility] Encounter [id number] [id number] 12/28 [facility] Out[facility] Encounter [id number] [id number] 12/29 [facility] Out[facility] Encounter [id number] [id number]/29 [facility] Out[facility] Encounter [id number] [id number]/30 [facility] Out[facility] Encounter [id number] [id number]/02 [facility] Out[facility] Encounter [id number] 01/03 [facility] Out[facility]counter [id number] [id number] 01/06 [facility] Out[facility] Encounter [id number] 01/18 [facility] Out[facility] Encounter [id number] [id number] 01/20 [facility] Out[facility] Encounter [id number] 01/25 [facility] [place] Outpatient Encounter [id number] 01/25 [place] [facility] Outpatient Encounter [id number] [id number] 01/27 [facility] Out[facility]counter [id number] 01/28 [facility] Out[facility] Encounter [id number] 01/30 [facility] Out[facility] Encounter [id number] 02/02 [facility] Out[facility] Encounter [id number] [id number] 02/14 [facility] Out[facility] Encounter [id number] [id number] 02/15 [facility] Out[facility] Encounter [id number]/23 [facility] OFFICE O/P EST HI 40 MIN [id number] Diagnos is: ICD-10- CM I25.10 Athscl heart disease of [place] coronar y artery w/o ang pctMICHELINE Ramsey 02/23 [facility] [place] [facility] Out[facility] Encounter [id number] [id number]/23 [facility] Out[facility] Encounter [id number] 02/27 [facility] Out[facility] Encounter [id number] 02/28 [facility] Out[facility] Encounter [id number] 03/01 [facility] Out[facility] Encounter [id number] 03/03 [facility] Out[facility] Encounter [id number] [id number] 03/09 [facility] Out[facility] Encounter [id number] 03/11 [facility] Out[facility]counter [id number] 03/12 [facility] Out[facility]counter [id number] 03/15 [facility] Out[facility] Encounter [id number] [id number]/31 [facility] OFFICE O/P EST MOD 30 MIN [id number] Diagnos is: ICD-10- CM F43.12 Post-tr aumatic stress disorde r, chronic LARROW,MARGE AN 04/05 [facility] Out[facility] Encounter [id number] 04/07 [facility] Out[facility] Encounter [id number] [id number]/26 [facility] Out[facility] Encounter [id number] [id number]/27 [facility] Outpatient [facility]counter [id number] 05/02 [facility] Outpatient [facility]counter [id number] 05/11 [facility] Outpatient Encounter [id number] 06/07 [facility] OFFICE O/P EST MOD 30 MIN [id number] Diagnos is: ICD-10- CM I25.10 Athscl heart disease of [place] coronar y artery w/o ang pctCarol Stanford 06/09 [facility] [place] [facility] Outpatient Encounter [id number] 06/09 [facility] OFFICE O/P EST MOD 30 MIN [id number] Diagnos is: ICD-10- CM F43.12 Post-tr aumatic stress disorde r, chronic LARROW,MARGE AN 07/05 [facility] IE Social History Combined list of available smoking, tobacco, and other social history from Department of Defense and Veterans Affairs facilities. Social History Type Response Date Comment Sourc e Tobacco smoking status [facility] VA-TOBACCO NEVER USED 03/04/2024 [facility] History of tobacco use VA-TOBACCO NEVER USED 03/31/2022 [facility] D History of tobacco use VA-TOBACCO NEVER USED 04/17/2021 [facility] D History of tobacco use VA-TOBACCO NEVER USED 02/29/2020 [facility] D History of tobacco use VA-TOBACCO NEVER USED 12/03/2018 [facility] D History of tobacco use LIF[employer]IME NON-TOBACCO USER 04/05/2018 [place] History of tobacco use LIFETIME NON-TOBACCO USER 04/14/2017 [place] History of tobacco use LIFETIME NON-TOBACCO USER 03/31/2016 [place] History of tobacco use LIFETIME NON-TOBACCO USER 11/18/2010 [place] Plan of Care List of future care activities from [facility] of [facility] facilities. Additional future care activities may be listed in the Assessment and Plan section. Date/Time Care Activity Care Activity Detail Facili ty 10/04/2025 AMBULATORY - PSYCHIATRY AMBULATORY - PS[facility]C [facility] Advance Directives List of completed, amended, or rescinded Advance Directives on record at [facility] of [facility] facilities. An actual copy of the Directive is not included. Date Advance Directive Provider Source 01/20/2025 ADVANCE DIRECTIVE GENNA MELENDEZ
--- NOTE | 2025-07-27 09:55 | MHC.PC.OV ---
Vital Signs 07/27/25 10:20 Height 5 ft 7 in Weight 245 lb BMI 38.4 BP 130/60 Blood Pressure Location Lt brachial Position Sitting Respiration 18 Pulse 63 Pulse Source Pulse Oximeter Temp 97.3 F Temp Source Temporal Artery Scan Pulse Oximetry (%) 96 Oxygen Delivery Method Room Air Intake Visit Reasons: CAD/HTN/Pacemaker Talk Show Host Required: No Accompanied by: Self / Same As Patient Allergies No Known Allergies Allergy (Verified 07/27/25 10:45) Medication List - Last Reconciled 07/27/25 by MÓNICA Farnsworth aspirin 81 mg PO DAILY atorvastatin 80 mg PO DAILY clopidogrel 75 mg PO DAILY fluoxetine 30 mg PO DAILY furosemide 20 mg PO DAILY loratadine 10 mg PO DAILY metoprolol tartrate 25 mg PO DAILY tamsulosin 0.4 mg PO BEDTIME zolpidem 10 mg PO BEDTIME Tobacco use date assessed: 07/27/25 Fall risk assessment: 1 Fall in past year Last assessed Fall Risk: 07/27/25 Dental Screening Dental Screen Date: 07/27/25 Did you have a dental visit in the last 12 months?: No Did you have a dental problem in the last 6 months where you did not have access to dental care?: No Was dental information given to patient?: No HPI CAD/HTN/Pacemaker HPI Details The patient is a 80-year-old male with past medical history of coronary artery disease status post PCI proximal RCA and LAD December 2024, severe aortic stenosis, systemic hypertension, [place] currently not on CPAP therapy, anxiety, BPH, liver cirrhosis, thrombocytopenia, pituitary mass and depression. He is presenting for follow up appointment. He is here with concerns of with tingling in the fingers. The tingling began after using an edger machine in the backyard, affecting primarily the fingertips of three fingers, with no associated pain reported. The patient speculated that the use of suspenders might contribute to the sensation, but no definitive cause was identified. The patient also has a history of cardiovascular interventions, including a TAVR and 2 stents placement in January. Patient return back to [facility] for episode of syncope and was found to be in left bundle branch block and a pacemaker was inserted by Dr. Wright on March 08 2025. Patient reports that he forgot to complete preordered labs and we will get this done as soon as possible. [facility] Medical History Pituitary mass Thrombocytopenia Liver cirrhosis HTN (hypertension) Insomnia Sleep apnea Depression Bradycardia Surgical History (Updated 07/29/25 @ 23:27 by MÓNICA Farnsworth) S/P TAVR (transcatheter aortic valve replacement) Family History Father Myocardial infarction Social History Housing: House Patient Tobacco Use Status: Never used Tobacco e-Cigarette/Vaping Use: Never Used service: Yes Current occupational status: retired and disabled Cognitive needs: No Hearing needs: No Vision needs: No Questionnaire PHQ-9 Over the last 2 weeks, how often have you been bothered by any of the following problems? 1. Little interest or pleasure in doing things: not at all 2. Feeling down, depressed, or hopeless: not at all 3. Trouble falling or staying asleep, or sleeping too much: several days 4. Feeling tired or having little energy: several days 5. Poor appetite or overeating: not at all 6. Feeling bad about yourself - or that you are a failure or have let yourself or your family down: not at all 7. Trouble concentrating on things, such as reading the newspaper or watching television: not at all 8. Moving or speaking so slowly that other people could have noticed. Or the opposite - being so fidgety or restless that you have been moving around a lot more than usual: not at all 9. Thoughts that you would be better off or of hurting yourself in some way: not at all Total score: 2 Depression Screening Interpretation: Negative Depression Screening Done: Yes Source: Developed by Drs. Carlos Chester, Annemarie Whitt, Sebastien Vazquez and colleagues, with an educational christine from [employer]. Thrive Questionnaire Date Thrive assessed: 07/27/25 I am a: Patient What is your living situation today?: I have a steady place to live Within the past 12 months, did the food you bought not last and you didn't have the money to get more?: Never true Within the past 12 months, did you worry whether your food would run out before you got money to buy more?: I choose not to answer this question Do you have trouble paying for medicines?: No Do you have trouble getting transportation to medical appointments?: No Do you have trouble paying your heating and electricity bill?: No Do you have trouble taking care of your child, family member or friend?: No Do you have trouble with day-to-day activities such as bathing, preparing meals, shopping, managing finances, etc.?: No Are you currently unemployed and looking for a job?: No Are you interested in more education?: No Please select the resources that you would like help with: None THRIVE Score: 0 AUDIT C Alcohol Use Questionnaire (AUDIT-C) 1. How often do you have a drink containing alcohol?: Never 3. How often do you have six or more drinks on one occasion?: Never Total Score: 0 MARQUISE-7 AMB Questionnaire MARQUISE-7 Date MARQUISE - 7 assessed: 07/27/25 Feeling nervous, anxious, or on edge: 0 = Not at all Not being able to stop or control worryin = Not at all Worrying too much about different things: 0 = Not at all Trouble relaxin = Not at all Being so restless that it is hard to sit still: 0 = Not at all Becoming easily annoyed or irritable: 0 = Not at all Feeling afraid as if something awful might happen: 0 = Not at all Total MARQUISE-7 score (0-4 normal; 5-9 mild; 10-14 moderate; 15-21 severe): 0 Source: Developed by Drs. Carlos Chester, Annemarie Whitt, Sebastien Vazquez and colleagues, with an educational christine from [employer]. Review of Systems Const Denies headache(s) Eyes Denies loss of vision ENT Denies vertigo, Denies dizziness, Denies headache(s) and Denies sore throat Card Denies chest pain, Denies leg edema, Denies lightheadedness and Reports dyspnea on exertion (When going upstairs with laundry-has improved) Resp Denies cough, Denies hemoptysis, Reports dyspnea on exertion (When going upstairs with laundry-has improved) and Denies wheezing GI Denies abdominal pain, Denies melena, Denies constipation, Denies diarrhea and Denies vomiting Denies dysuria, Denies urinary frequency and Denies urinary urgency Musc Denies arthralgias, Denies joint swelling, Denies numbness and Reports tingling (To fingers in bilateral hands) Neuro Denies Abnormal speech present, Denies behavioral changes, Denies vertigo, Denies dizziness, Denies headache(s), Denies loss of vision, Denies memory loss, Denies numbness and Reports tingling (To fingers in bilateral hands) Psych Denies anxiety, Denies behavioral changes, Reports depression, Denies memory loss, Denies panic attacks and Reports other (Insomnia) Greg/Lymph Denies easy bleeding and Denies easy bruising Aller/Immun Denies wheezing Physical exam (Primary Care) Vital Signs: Last Vital Signs Temp 97.3 F 07/27/25 10:20 Pulse 63 07/27/25 10:20 Resp 18 07/27/25 10:20 BP 130/60 07/27/25 10:20 Pulse Ox 96 07/27/25 10:20 Oxygen Delivery Method Room Air 07/27/25 10:20 BMI result Body Mass Index 38.4 Tobacco/Smoking Status: Tobacco use Status Tobacco use date assessed 07/27/25 07/27/25 10:30 Patient Tobacco Use Status Never used Tobacco 07/27/25 09:55 e-Cigarette/Vaping Use Never Used 07/27/25 09:55 PHQ-9: PHQ-9 Score PHQ-9: Total score 2 07/27/25 10:52 Depression Screening Interpretation: Negative Thrive Assessment: Date of Thrive Assessment Date Thrive assessed 07/27/25 07/27/25 10:30 Const General: healthy appearing, no acute distress, alert and awake Nutritional Appearance: well nourished Orientation/consciousness: oriented to person, oriented to place and oriented to time HENMT Ears: TM's normal bilaterally General nose exam: Normal nasal mucous membranes and turbinates present Eyes Conjunctivae: conjunctivae normal Sclerae: sclerae normal Pupils: Equal, round and reactive pupils present Neck Neck: Yes no lymphadenopathy and Yes no JVD Thyroid: Thyroid normal Carotids: no bruits Resp Effort & Inspection: normal respiratory effort and not tachypneic Auscultation: no crackles, no rales, no rhonchi and no wheezes Cardio Rate: regular rate Rhythm: regular rhythm Heart sounds: no murmurs and normal S1 and S2 GI Palpation (GI): Soft to palpation, nontender, no hepatomegaly and no splenomegaly Auscultation: normal bowel sounds Skin General skin exam: no rashes or lesions noted and dry skin Neuro General: oriented to person, oriented to place and oriented to time Cranial nerves: Yes Equal, round and reactive pupils present Speech: No Abnormal speech present Gait exam (Neuro): Normal gait present Motor exam (neuro): no tremor noted Extrem Right upper extremity: full ROM Left upper extremity: full ROM Right lower extremity: full ROM; no edema Left lower extremity: full ROM; no edema Psych Mental Status: mental status grossly normal Speech and movement: Normal speech and movement present Affect: normal affect Attitude: cooperative Thought process: Normal thought process present Coding Level of Care Code Est Pt Level 4 (32176) Diagnoses Hypertension, unspecified type I10 Hypertension type: unspecified Heart failure, unspecified HF chronicity, unspecified heart failure type I50.9 Heart failure type: unspecified Heart failure chronicity: unspecified Coronary artery disease involving [place] heart without angina pectoris, unspecified vessel or lesion type I25.10 Coronary Disease-Associated Artery/Lesion type: unspecified vessel or lesion type [place] vs. transplanted heart: [place] heart Associated angina: without angina Pacemaker Z95.0 Depression, unspecified depression type F32.A Depression Type: unspecified Benign prostatic hyperplasia, unspecified whether lower urinary tract symptoms present N40.0 Lower urinary tract symptom presence: unspecified whether lower urinary tract symptoms present Insomnia, unspecified type G47.00 Insomnia type: unspecified Sleep apnea, unspecified type G47.30 Sleep apnea type: unspecified type S/P TAVR (transcatheter aortic valve replacement) Z95.2 Time Spent (min) 43 Assessment & Plan Assessment & Plan (1) HTN (hypertension): Code(s): I10 - Essential (primary) hypertension Category: Medical Qualifiers: Hypertension type: unspecified Qualified Code(s): I10 - Essential (primary) hypertension Plan: Blood pressure 130/60 within goal Reinforced low salt diet Continue metoprolol 25 mg daily (2) Heart failure: Code(s): I50.9 - Heart failure, unspecified Category: Medical Qualifiers: Heart failure type: unspecified Heart failure chronicity: unspecified Qualified Code(s): I50.9 - Heart failure, unspecified Plan: Denies shortness of breath. No edema on exam. Continue furosemide 20 mg daily (3) CAD (coronary artery disease): Code(s): I25.10 - Atherosclerotic heart disease of [place] coronary artery without angina pectoris Category: Medical Qualifiers: Coronary Disease-Associated Artery/Lesion type: unspecified vessel or lesion type [place] vs. transplanted heart: [place] heart Associated angina: without angina Qualified Code(s): I25.10 - Atherosclerotic heart disease of [place] coronary artery without angina pectoris Plan: Echo on 12/27/2024. Shows normal left ventricular size cavity, mildly decreased in left ventricular systolic function with an ejection fraction of 45-50%. No evidence of diastolic dysfunction and elevated left atrial filling pressure. Mild LV global hypokinesis is present, left ventricle mild concentric hypertrophy, aortic valve demonstrates [id number] aortic stenosis with a VTI ratio 0.21 and a mean gradient of 42 mm Hg, mitral valve with moderately thickened leaflets. Mild functional mitral stenosis 4 mm Hg mean gradient. On 03/09/2025 [facility] echocardiogram showed preserved left ventricular systolic function 60-65% with grade 2 moderate diastolic dysfunction, severe left atrial enlargement. Patient denies chest pain, reports shortness of breath with carrying laundry upstairs. This is short-lived and has been improving. Continue aspirin 81 mg daily, atorvastatin 80 mg daily, and clopidogrel 75 mg daily along with strict blood pressure control. (4) Pacemaker: Code(s): Z95.0 - Presence of cardiac pacemaker Category: Medical Plan: March 08, 2025 patient returned to [facility] after syncopal episode and found to have new left bundle status post leadless pacemaker inserted by Dr. Wright. On 03/09/2025 [facility] echocardiogram showed preserved left ventricular systolic function 60-65% with grade 2 moderate diastolic dysfunction, severe left atrial enlargement. (5) Depression: Code(s): F32.A - Depression, unspecified Category: Medical Qualifiers: Depression Type: unspecified Qualified Code(s): F32.A - Depression, unspecified Plan: Encouraged CBT Continue fluoxetine 30 mg daily Denies SI/HI Follow up with Psychiatry as scheduled([facility]) (6) BPH (benign prostatic hyperplasia): Code(s): N40.0 - Benign prostatic hyperplasia without lower urinary tract symptoms Category: Medical Qualifiers: Lower urinary tract symptom presence: unspecified whether lower urinary tract symptoms present Qualified Code(s): N40.0 - Benign prostatic hyperplasia without lower urinary tract symptoms Plan: Continue tamsulosin 0.4 mg at bedtime (7) Insomnia: Code(s): G47.00 - Insomnia, unspecified Category: Medical Qualifiers: Insomnia type: unspecified Qualified Code(s): G47.00 - Insomnia, unspecified Plan: Sleep hygiene: Exercise regularly, but not within 4 hour of bedtime. Limit fluid intake and avoid large meals in the evening hours. Limit overall caffeine, tobacco, and alcohol intake; no night cap. Maintain a regular sleep-wake cycle without naps in the daytime. Lie down to sleep only when feeling sleepy; leave the bed if unable to fall asleep within 20 minutes; stay in bed for only the hours actually sleeping(but not less than 5 hour in 24 hours). Continue zolpidem 10 mg at bedtime (8) Sleep apnea: Code(s): G47.30 - Sleep apnea, unspecified Category: Medical Qualifiers: Sleep apnea type: unspecified type Qualified Code(s): G47.30 - Sleep apnea, unspecified Plan: History of sleep apnea but unable to tolerate CPAP machine. Reports that his sleeping has gotten better and he is feeling less tired upon awakening. (9) S/P TAVR (transcatheter aortic valve replacement): Comment: On February 27 2025 successful transfemoral TAVR with an [employer] 326 mm bioprosthetic valve via the right femoral artery Code(s): Z95.2 - Presence of prosthetic heart valve Category: Surgical Plan: Status post TAVR-mild shortness of breath while carrying laundry up the stairs but notes that this is not limiting for him in his improved from before. Orders: Orders B Type Natriuretic Peptide 07/27/25 I50.9 - Heart failure, unspecified
[2025-07-27 10:20] VITALS: BP 130/60; PULSE 63; RESP 18; TEMP 36.3; O2SAT 96; BMI 38.4
--- OUTSIDE RECORDS SUMMARY | 2025-07-27 10:59 | XMS_ITS | Clinical Summary ---
Author Organization [facility] Address [address] [place] [address] Phone Care Team Providers Care Airport Clerk Name Role Phone AdonayShahriaralton TREJO Primary Care Provider [phone] Allergies No known active allergies Medications multivitamin with iron-minerals 9 mg iron/15 mL liquid Take 15 mL by mouth 1 (one) time each day. Active FLUoxetine (PROzac) 10 mg capsule Take 3 capsules (30 mg total) by mouth 1 (one) time each day. Active aspirin 81 mg chewable tablet Chew 1 tablet (81 mg total) 1 (one) time each day. Active tamsulosin (FLOMAX) 0.4 mg 24 hr capsule Take 1 capsule (0.4 mg total) by mouth at bedtime. Capsules should be taken 30 minutes following the same meal each day. Active zolpidem (AMBIEN) 10 mg tablet Take 1 tablet (10 mg total) by mouth at bedtime as needed for sleep. Active clopidogreL (PLAVIX) 75 mg tablet Take 1 tablet (75 mg total) by mouth 1 (one) time each day. 5 Active metoprolol tartrate (LOPRESSOR) 25 mg tablet Take 0.5 tablets (12.5 mg total) by mouth 2 (two) times a day. Active atorvastatin (LIPITOR) 80 mg tablet Take 1 tablet (80 mg total) by mouth 1 (one) time each day. 90 each 2 03/18/202 5 11/11/20 25 Active furosemide (LASIX) 20 mg tablet Take 1 tablet (20 mg total) by mouth 1 (one) time each day. 30 each 2 5 Active loratadine (CLARITIN) 10 mg tablet Take 1 tablet (10 mg total) by mouth 1 (one) time each day. Active Active Problems Problem Noted Date Diagnosed Date Chronic heart failure with p reserved ejection fraction (CMS/HCC V24, CMS/HCC V28) 03/17/2025 Assessment & Plan (05/11/2025 12:55 PM EDT): Echocardiogram from February 2025 showed preserved LV systolic function and moderate diastolic dysfunction. Aside from lower extremity edema, he appears compensated on exam. Edema likely in part secondary to venous insufficiency. Continue with metoprolol and furosemide. Consider adding SGLT2 inhibitor. We reviewed heart failure management including low-sodium diet, symptom surveillance, daily weights and medication compliance. The patient is aware they may take extra diuretic for intermittent evidence of mild congestive signs and symptoms. If the increase of frequency of as needed diuretic becomes more regular than they will make our office aware. If the patient has weight gain over 3lbs in one day or 5lbs over several days, they are aware to contact our office. With any severe or sustained symptoms, they are aware to contact EMS via 911 and go to the emergency room. Assessment & Plan (03/17/2025 2:16 PM EDT): Echocardiogram from February 2025 showed preserved LV systolic function and moderate diastolic dysfunction. Aside from lower extremity edema, he appears compensated on exam. Edema likely in part secondary to venous insufficiency. Continue with metoprolol and furosemide. Consider adding SGLT2 inhibitor. We reviewed heart failure management including low-sodium diet, symptom surveillance, daily weights and medication compliance. The patient is aware they may take extra diuretic for intermittent evidence of mild congestive signs and symptoms. If the increase of frequency of as needed diuretic becomes more regular than they will make our office aware. If the patient has weight gain over 3lbs in one day or 5lbs over several days, they are aware to contact our office. With any severe or sustained symptoms, they are aware to contact EMS via 911 and go to the emergency room. S/p TAVR (transcatheter aort ic valve replacement), bioprosthetic 03/16/2025 Overview (05/11/2025): 12/26/24 TRANSTHORACIC ECHOCARDIOGRAM (TTE) COMPLETE (CONTRAST/BUBBLE/3D PRN) 12/27/2024 12/27/2024 Interpretation Summary Left ventricle cavity size is normal. Left ventricular systolic function is mildly decreased with an ejection fraction of 45-50%. Definity contrast used to delineate endocardial borders. Evidence of diastolic dysfunction and elevated left atrial filling pressure Mild LV global hypokinesis is present. Left ventricle mild concentric hypertrophy. Right ventricle cavity is normal. Aortic valve demonstrates moderate to severe aortic stenosis with a VTI ratio 0.21 and a mean gradient of 42 mmHg Aortic valve leaflets are moderately thickened and exhibit moderately reduced excursion. Aortic valve leaflets are moderately calcified. Mitral valve with moderately thickened leaflets. Mild functional mitral stenosis 4 mmHg mean gradient No previous echocardiogram available for comparison Signed by: Serge So MD on 12/27/2024 4:17 PM February 27, 2025 successful transfemoral TAVR with an Soto MANUEL 326 mm bioprosthetic valve via the right femoral artery; intraoperative complications charged home on DAPT due to recent stenting March 08, 2025 patient returned to [facility] after syncopal episode and found to have new left bundle status post leadless pacemaker inserted by Dr. Wright March 09, 2025 [facility] echocardiogram showed preserved left ventricular systolic function LVEF 60-65% with grade 2 moderate diastolic dysfunction, severe left atrial enlargement, well-seated and normally functioning TAVR valve with no perivalvular leak and mean gradient of 11 mmHg, moderate MAC with trace mitral regurgitation and no other significant findings 12/26/24 TRANSTHORACIC ECHOCARDIOGRAM (TTE) COMPLETE (CONTRAST/BUBBLE/3D PRN) 12/27/2024 12/27/2024 Interpretation Summary Left ventricle cavity size is normal. Left ventricular systolic function is mildly decreased with an ejection fraction of 45-50%. Definity contrast used to delineate endocardial borders. Evidence of diastolic dysfunction and elevated left atrial filling pressure Mild LV global hypokinesis is present. Left ventricle mild concentric hypertrophy. Right ventricle cavity is normal. Aortic valve demonstrates moderate to severe aortic stenosis with a VTI ratio 0.21 and a mean gradient of 42 mmHg Aortic valve leaflets are moderately thickened and exhibit moderately reduced excursion. Aortic valve leaflets are moderately calcified. Mitral valve with moderately thickened leaflets. Mild functional mitral stenosis 4 mmHg mean gradient No previous echocardiogram available for comparison Signed by: Serge So MD on 12/27/2024 4:17 PM Assessment & Plan (05/11/2025 12:55 PM EDT): Successful transfemoral TAVR with an Soto MANUEL 3 26 mm bioprosthetic valve on 02/27/25. No complications intraoperative or prior to discharge. Patient presented with syncope after discharge and new LBBB status post leadless PPM. The patient is having symptomatic improvement following his TAVR. His valve is working well on exam, by echocardiogram and by symptoms. Instructed patient about the need for prophylactic antibiotics prior to dental work. They are schedule for a one month TAVR echocardiogram and then one month TAVR follow up. Assessment & Plan (03/17/2025 2:16 PM EDT): Successful transfemoral TAVR with an Soto MANUEL 3 26 mm bioprosthetic valve on 02/27/25. No complications intraoperative or prior to discharge. Patient presented with syncope after discharge and new LBBB status post leadless PPM. The patient is having symptomatic improvement following his TAVR. His valve is working well on exam, by echocardiogram and by symptoms. Instructed patient about the need for prophylactic antibiotics prior to dental work. They are schedule for a one month TAVR echocardiogram and then one month TAVR follow up. Pacemaker 03/16/2025 Overview (03/17/2025): March 08, 2025 patient returned to [facility] after syncopal episode and found to have new left bundle status post leadless pacemaker inserted by Dr. Wright Assessment & Plan (05/11/2025 12:55 PM EDT): No further syncope. Device check on 04/10/25. Assessment & Plan (03/17/2025 2:16 PM EDT): No further syncope. Device check on 04/10/25. Mixed hyperlipidemia 02/14/2025 Assessment & Plan (05/11/2025 12:55 PM EDT): November 2024 - [id number]. Continue with high dose atorvastatin and repeat lipid panel in next four to six months. Assessment & Plan (03/17/2025 2:16 PM EDT): November 2024 - [id number]. Continue with high dose atorvastatin and repeat lipid panel in next four to six months. Assessment & Plan (02/14/2025 2:25 PM EDT): Patient has history of hyperlipidemia as well as a history of coronary artery disease. His last LDL cholesterol was noted to be 94. Recommend he increase atorvastatin to 80 mg orally daily for better cholesterol control. Coronary artery disease 02/10/2025 Overview (03/17/2025): December 28, 2024 diagnostic angiogram due to non-STEMI and LV dysfunction found to have severe proximal RCA stenosis and severe proximal LAD stenosis as well as severe aortic stenosis and elevated LVEDP; role for surgical consult but felt to be too high risk January 25, 2025 repeat angiogram with successful PCI with AUBRIE to the LAD and PCI with AUBRIE to the proximal RCA Assessment & Plan (05/11/2025 12:55 PM EDT): Catheterization showed severe double vessel disease status post AUBRIE to LAD and AUBRIE to RCA with no other significant disease. Echocardiogram from February 2025 showed preserved left ventricular systolic function LVEF 60-65%. No anginal symptoms. Continue with aspirin, atorvastatin, clopidogrel, furosemide and metoprolol. We discussed risk reduction through lifestyle choices including healthy diet, routine exercise and weight management. Orders: ECG 12 lead Assessment & Plan (03/17/2025 2:16 PM EDT): Catheterization showed severe double vessel disease status post AUBRIE to LAD and AUBRIE to RCA with no other significant disease. Echocardiogram from February 2025 showed preserved left ventricular systolic function LVEF 60-65%. No anginal symptoms. Continue with aspirin, atorvastatin, clopidogrel, furosemide and metoprolol. We discussed risk reduction through lifestyle choices including healthy diet, routine exercise and weight management. Assessment & Plan (02/14/2025 2:25 PM EDT): The patient has a history of coronary artery disease status post PCI to the proximal RCA and LAD December 2024. Currently, he denies any anginal symptoms or episodes of chest pain. He continues on medical therapy with aspirin, clopidogrel, statin and metoprolol as prescribed. Orders: Ambulatory referral to Cardiology ECG 12 lead HTN (hypertension) 01/11/2025 Assessment & Plan (05/11/2025 12:55 PM EDT): Borderline controlled. Continue with metoprolol and furosemide. Could consider doubling metoprolol, adding ACEi or ARB or adding HCTZ if blood pressure remain uncontrolled. Orders: ECG 12 lead Assessment & Plan (03/17/2025 2:16 PM EDT): Controlled. Continue with metoprolol and furosemide. Assessment & Plan (02/14/2025 2:25 PM EDT): Patient's blood pressure is well-controlled today with a reading 118/60. He will continue his current antihypertensive medication regimen as prescribed. Pituitary mass ([facility] V24) 01/11/2025 Resolved Problems Problem Noted Date Diagnosed Date Resolved Date New onset left bundle branch block (LBBB) 03/13/2025 03/16/2025 NSTEMI (non-ST elevated myoc ardial infarction) ([facility] V24, [facility] V28) 01/11/2025 0 02/14/2025 (aortic stenosis) 01/11/2025 025 Assessment & Plan (02/14/2025 2:25 PM EDT): Patient has a history of severe aortic stenosis as outlined above pending outpatient TAVR scheduled for February 27. His breathing is stable and improved since being started on furosemide. He will continue with his plans for scheduled TAVR and follow up appointments. Orders: Ambulatory referral to Cardiology Elevated troponin 01/11/2025 02/14/2025 Other chest pain 12/26/2024 02/14/2025 Chest pain 12/26/2024 02/14/2025 Syncope 10/28/2024 02/14/2025 Anxiety 11/20/2020 01/11/2025 Overview (01/11/2025): Dec 23, 2019 Entered By: TIANA CROUCH Comment: reviewed April 17, 2021 Entered By: TIANA CROUCH Comment: reviewed Cirrhosis (CMS/HCC V24, CMS/HCC V28) 11/20/2020 01/11/2025 Colon polyp 11/20/2020 01/11/2025 Insomnia 11/20/2020 01/11/2025 Overview (01/11/2025): Dec 23, 2019 Entered By: TIANA CROUCH Comment: reviewed April 17, 2021 Entered By: TIANA CROUCH Comment: reviewed ALLYSON (obstructive sleep apnea) 11/20/2020 01/11/2025 Overview (01/11/2025): Aug 29, 2024 Entered By: TAO CEE Comment: doesn't wear cpap PTSD (post-traumatic stress disorder) 11/20/2020 01/11/2025 Encounters Date Type Department Care Team Description 05/11/2025 11:10 AM EDT Office Visit [facility] [address] [place] [address] Brady Lizama NP Coronary artery disease involving nenana coronary artery of nenana heart without angina pectoris (Primary Dx); Primary hypertension; Mixed hyperlipidemia; S/p TAVR (transcatheter aortic valve replacement), bioprosthetic; Pacemaker; Chronic heart failure with preserved ejection fraction ([facility] V24, CMS/HCC V28) 05/05/2025 Telephone [facility] [address] [place] [address] Brady Lizama NP 04/26/2025 12:30 PM EDT Ancillary Procedure [facility] [address] [place] [address] Aortic valve stenosis, etiology of cardiac valve disease unspecified from Last 3 Months Surgical History Surgery Date Site/Laterality Comments VASECTOMY PROCEDURE: HISTORICAL VASECTOMY COLONOSCOPY 03/12/2017 PROCEDURE: HISTORICAL COLONOSCOPY; COMMENT: normal APPENDECTOMY UMBILICAL HERNIA REPAIR EYE SURGERY Left Skin around left eye CARDIAC CATHETERIZATION DONE ON 12/28/2024 AT [facility] INDICATIONS: NSTEMI CARDIAC CATHETERIZATION DONE IN 01/25/2025 AT [facility] INDICATIONS: CAD. Medical History Medical History Date Comments Cirrhosis ([facility], [facility] V28) 11/20/2020 DX:Cirrhosis (HCC) Anxiety 11/20/2020 DX:Anxiety Hypertension 11/20/2020 DX:Hypertension Insomnia 11/20/2020 DX:Insomnia ALLYSON (obstructive sleep apnea) 11/20/2020 DX :ALLYSON (obstructive sleep apnea) PTSD (post-traumatic stress disorder) 11/20/2020 DX:PTSD (post-traumatic stress disorder) Aortic stenosis 11/20/2020 DX:Aortic stenos is Colon polyp 11/20/2020 DX:Colon polyp Knee pain YOVANY (acute kidney injury) ([facility] V24) ALLYSON (obstructive sleep apnea) Pituitary mass ([facility] V24) Thrombocytopenia ([facility] V24) Cirrhosis ([facility] V24, [facility] V28) BPH (benign prostatic hyperplasia) Thrombocytopenia ([facility] V24) Depression Anemia Family History Medical History Relation Name Comments Heart attack Father Dementia Mother Relation Name Status Comments Father Mother Social History Tobacco Use Types Packs/Day Years Used Date Smoking Tobacco: Never Smokeless Tobacco: Never Tobacco Cessation:Counseling Given: Not Answered Alcohol Use Standard Drinks/Week Comments Not Currently 0 (1 standard drink = 0.6 oz pur e alcohol) Interpersonal Safety Answer Date Record ed Physical Abuse 10/28/2024 Verbal Abuse 10/28/2024 Sex and Gender Information Value Date Recorded Sex Assigned at Male 10/28/2024 8:40 PM EST Legal Sex Male 3:53 AM EST Gender Identity Male 10/28/2024 8:40 PM EST Sexual Orientation Straight 10/28/2024 8: 40 PM EST Obstetrics History Last Filed Vital Signs Vital Sign Reading Time Taken Comments Blood Pressure 140/78 05/11/2025 10:51 AM EDT Pulse 75 05/11/2025 10:51 AM EDT Temperature 36.9 C (98.4 F) 12/27/2024 7:12 PM EST Respiratory Rate 20 12/27/2024 7:12 PM EST Oxygen Saturation 92% 05/11/2025 10:51 AM EDT Inhaled Oxygen Concentration - - Weight 110 kg (242 lb) 05/11/2025 10:51 AM EDT Height 170.2 cm (5' 7 ) 05/11/2025 10:51 AM EDT Body Mass Index 37.9 05/11/2025 10:51 AM EDT Plan of Treatment Upcoming Encounters Date Type Department Care Team ([facility] st Contact Info) Description 04/16/2026 9:00 AM EDT Ancillary Procedure [facility] - [facility] [address] [facility] [address] [place] [address] Health Maintenance Due Date Last Done Comments RSV Immunization Adult Patients (1 - 1-dose 75+ series) 2022 COVID-19 Vaccine (2023- season) 2024 12/03/2022, 01/02/2022, 03/02/2021, Additional history exists Hepatitis C Screening 10/28/2024 Medicare Annual Wellness Visit 10/28/2024 Social Influencers of Health Screening 10/28/2024 Depression Screening 11/30/2024 Influenza Vaccine (#1) 2025 Falls Risk Assessment 10/29/2025 10/29/2024 Hypertension/CHF/CAD Annual BMP Blood Test 05/08/2026 05/08/2025, 04/19/2025, 03/14/2025, Additional history exists Cholesterol Screening (Lipid Panel) 12/27/2029 12/27/2024, 12/26/2024 DTaP,Tdap,and Td Vaccines (4 - Td or Tdap) 03/07/2034 03/07/2024, 12/20/2013, 11/30/2009 Zoster Vaccines Completed 05/28/2018, 050 05/2018, 11/30/2011 Hepatitis A Vaccines Aged Out 04/24/2021, 09/13/20 20 No longer eligible based on patient's age to complete this topic Pneumococcal Vaccine: 50+ Years Completed 07/11/2024, 04/30/2015, 02/01/2013 HIB Vaccines Aged Out No longer eligi ble based on patient's age to complete this topic HPV Vaccines Aged Out No longer eligi ble based on patient's age to complete this topic Hepatitis B Vaccines Aged Out No long er eligible based on patient's age to complete this topic IPV Vaccines Aged Out No longer eligi ble based on patient's age to complete this topic MMR Vaccines Aged Out No longer eligi ble based on patient's age to complete this topic Meningococcal ACWY Vaccine Aged Out N o longer eligible based on patient's age to complete this topic Meningococcal B Vaccine Aged Out No l onger eligible based on patient's age to complete this topic RSV Immunization Patients Under 20 months Aged Out No longer eligible based on patient's age to complete this topic Varicella Vaccines Aged Out No longer eligible based on patient's age to complete this topic Medical Devices Implanted Type 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 Device Identifier Shelf Expiration Date Model / Serial / Lot Medt-Card Micra Av2 [id number] Implanted:09/2025 (Quantity not on file) Cardiac Pacemaker [employer] - CARDIAC RHYTH-CRDM MICRA AV2 [id number] / [id number] / Procedures Procedure Name Priority Date/Time Associated Diagnosis Comments ECG 12-LEAD Routine 05/11/2025 11:00 AM EDT Primary hypertension Coronary artery disease involving nenana coronary artery of nenana heart without angina pectoris BASIC METABOLIC PANEL Routine 05/08/2025 12:01 PM EDT TRANSTHORACIC ECHOCARDIOGRAM (TTE) COMPLETE W/ CONTRAST Routine 04/26/2025 1:40 PM EDT Aortic valve stenosis, etiology of cardiac valve disease unspecified LIPID PANEL WITH REFLEX TO DIRECT LDL Routine 12/27/2024 4:17 AM EST from Last 3 Months or Most Recently Relevant to Health Maintenance Results * ECG 12 lead (05/11/2025 11:00 AM EDT) Ventricular Rate ECG 75 BPM GEMUSE Atrial Rate 75 BPM GEMUSE P-R Interval 186 ms GEMUSE QRS Duration 88 ms GEMUSE Q-T Interval 410 ms GEMUSE QTc 457 ms GEMUSE P Wave [place] 36 degrees GEMUSE R [place] -39 degrees GEMUSE T [place] 51 degrees GEMUSE ECG Interpretation Sinus rhythm with occasional Premature ventricular complexes and Fusion complexes Left axis deviation Septal infarct (cited on or before 28-OCT-2024) Abnormal ECG When compared with ECG of 14-FEB-2025 13:52, Fusion complexes are now Present Premature ventricular complexes are now Present Confirmed by Debra SO JAMES ([id number]) on 05/11/2025 11:33:53 AM GEMUSE 05/11/2025 11:0 0 AM EDT 05/11/2025 11:33 AM EDT us Brady Lizama HOSTLER HELPER ECG ORDERABLES Final Resul t GEMUSE * (ABNORMAL) Basic metabolic panel (05/08/2025 12:01 PM EDT) Glucose 96 70 - 99 mg/dL [facility] Blood Urea Nitrogen (BUN) 25 8 - 27 mg/dL [facility] Creatinine 0.92 0.76 - 1.27 mg/dL [facility] eGFR 85 >59 mL/min/1.7 3 [facility] BUN/Creatinine Ratio 27(H) 10 - 24 [facility] Sodium 140 134 - 144 mmol/L [facility] Potassium 4.6 3.5 - 5.2 mmol/L [facility] Chloride 103 96 - 106 mmol/L [facility] Carbon Dioxide 22 20 - 29 mmol/L [facility] Calcium 9.7 8.6 - 10.2 mg/dL [facility] 1 05/08/2025 12:0 1 PM EDT 05/08/2025 Narrative [facility] - 05/09/2025 4:06 AM EDT Performed at: 01 - [facility] [address] [id number] Storekeeper Engineering: Mae Damon MD, Phone: [phone] us Ruby Nunez HOSTLER HELPER LAB BLOOD ORDERABLES Final R esult [facility] * (ABNORMAL) TRANSTHORACIC ECHOCARDIOGRAM (TTE) COMPLETE W/ CONTRAST (04/26/2025 1:40 PM EDT) Left Atrium Minor [place] 6.7 cm CV PACS Left Atrium Major [place] 6.3 cm CV PACS LA Area Sys (A2C) 31 cm2 CV PACS LA Area Sys (A4C) 20 cm2 CV PACS LA Volume (BP) 81 mL CV PACS RA Area 14.0 cm2 CV PACS RA 2D Volume 31 mL CV PACS AV Mean Gradient 13 mmHg CV PACS Ao VTI 51.9 cm CV PACS AV Peak William 2.5 m/s CV PACS AV Peak Gradient 25 mmHg CV PACS Ascending Aorta 3.2 cm CV PACS IVSD 1.3(A) 0.6 - 1.0 cm CV PACS LVIDD 4.4 4.2 - 5.8 cm CV PACS LVIDS 2.9 2.5 - 4.0 cm CV PACS LVOT Mean William 0.8 m/s CV PACS LVOT Mean Grad 3 mmHg CV PACS LVOT Peak VTI 25.8 cm CV PACS LVOT Peak William 1.3 m/s CV PACS LVOT Peak Gradient 6 mmHg CV PACS LVPWD 1.1(A) 0.6 - 1.0 cm CV PACS MV E' Tissue Velocity Lateral 6 cm/s CV PACS MV E' Tissue Velocity Septal 4 cm/s CV PACS MV Deceleration Sutton 2.8 m/s2 CV PACS E Wave Deceleration Time 343(A) 119 - 242 ms CV PACS MV PHT 101 ms CV PACS MV Peak A William 1.19 m/s CV PACS MV Peak E William 0.96 m/s CV PACS MV Mean Gradient 4 mmHg CV PACS MV VTI 39.2 cm CV PACS Mitral Valve Max Velocity 1.3 m/s CV PACS MV Peak Gradient 7 mmHg CV PACS MV Area PHT 2.2 cm2 CV PACS RV Diastolic Basal Dimension 3.3 2.5 - 4.1 cm CV PACS RV S' 10 cm/s CV PACS TAPSE 18 mm CV PACS E/E' Ratio Septal 24 CV PACS E/E' Ratio Averaged 20 CV PACS Relative Wall Thickness ratio 0.50 CV PACS LVOT:AV VTI Index 0.50 CV PACS FS 34 % CV PACS LV Mass 2D 191 g CV PACS Ascending Aorta Index 1.46 cm/m2 CV PACS MV VTI:LVOT VTI ratio 1.5 CV PACS RA 2D Volume Index 14 mL/m2 CV PACS LVIDD Index 2.01 cm/m2 CV PACS LVIDS Index 1.32 cm/m2 CV PACS AV Velocity Ratio 0.52 CV PACS E/A Ratio 0.8 CV PACS E/E' Ratio Lateral 16 CV PACS LA Volume Index (BP) 37 mL/m2 CV PACS LV Mass Index 2D 87 g/m2 CV PACS BSA 2.28 m2 CV PACS Est. RA Pressure 15 mmHg CV PACS Inferior Vena Cava Diameter At Inspiration 2.3 cm CV PACS IVC Inspiration Index 1.05 cm/m2 CV PACS Anatomical Region Laterality Modality Ultrasound Narrative 05/31/2025 2:31 PM EDT Left ventricle cavity size is normal. There is moderate hypertrophy. Systolic function is low normal with an ejection fraction of 50-55% S/p TAVR, the valve is functioning normally Compared to the prior study, the patient underwent valve replacement and the valve is functioning normally Left Ventricle Left ventricle cavity size is normal. There is moderate hypertrophy. Systolic function is low normal with an ejection fraction of 50-55%. Mild global LV hypokinesis is present. There is Grade I (mild) diastolic dysfunction. Right Ventricle Right ventricle cavity appears normal. Systolic function is normal. Left Atrium Left atrium cavity is mildly dilated. Right Atrium Right atrium cavity is normal. IVC/SVC Inferior vena cava is dilated. RA pressures is estimated to be 15 mmHg (IVC diameter >21 mm and decreases <50% during inspiration). Mitral Valve The leaflets are moderately thickened. There is moderate annular calcification. There is trace regurgitation. There is mild stenosis. Tricuspid Valve Tricuspid valve structure is normal. There is trace regurgitation. There is no evidence of tricuspid valve stenosis. Cannot assess RVSP. Aortic Valve The valve has been surgically replaced. There is a 26 mm TAVR bioprosthetic valve implanted on 02/27/25. The prosthetic valve appears to be functioning normally. There is trace paravalvular regurgitation. There is no significant stenosis. Pulmonic Valve There is no regurgitation or stenosis. Ascending Aorta The aorta appears normal in size. Pericardium Pericardium appears normal. There is no pericardial effusion. Study Details Overall the study quality was technically difficult. Definity contrast was given to enhance imaging. Study was difficult due to: poor endocardial visualization. us Scott Philip MD CV ECHO PROCEDURES Final Result * (ABNORMAL) Lipid panel with reflex to direct LDL (12/27/2024 4:17 AM EST) Cholesterol 180 0 - 200 mg/dL LAB CHEMISTRY METHOD 12/27/2024 5:28 AM EST [facility] Triglycerides 180(H) 0 - 150 mg/dL LAB CHEMISTRY METHOD 12/27/2024 5:28 AM EST [facility] HDL 37(L) >=40 mg/dL LAB CHEMISTRY METHOD 12/27/2024 5:28 AM [facility] LDL Calculated 107(H) 0 - 100 mg/dL LAB CHEMISTRY METHOD 12/27/2024 5:28 AM [facility] VLDL Cholesterol Charbel 36 mg/dL LAB CHEMISTRY METHOD 12/27/2024 5:28 AM [facility] Non HDL Chol. (LDL+VLDL) 143 <145 mg/dL LAB CHEMISTRY METHOD 12/27/2024 5:28 AM EST [facility] Chol/HDL Ratio 4.9(H) 0.0 - 4.4 LAB CHEMISTRY METHOD 12/27/2024 5:28 AM [facility] Blood Venous blood specimen / Unknown Venipuncture / Unknown 12/27/2024 4:17 AM EST 12/27/2024 4:49 AM EST Franca MONSIVAIS LAB BLOOD ORDERABLES Final Resu lt [facility] [address] [place] [address], from Last 3 Months or Most Recently Relevant to Health Maintenance Insurance [employer] ADV[employer]AGE [facility] Advance Directives Documents on File Type Date Recorded Patient Double Bottom Driver Expl anation Advance Directives and Livin g Will 10/31/2024 2:27 PM * Full Code - Default (Latest Code Status on File) Date Activated Date Inactivated Comments 12/26/2024 8:58 PM 12/27/2024 9:19 PM This is orde r is used when code status has not been discussed with the patient, or code status is otherwise unknown/unconfirmed To update the patient's code status, place a code status order. Do not modify or discontinue any currently active code status orders. * Full Code - Default Date Activated Date Inactivated Comments 10/28/2024 4:32 PM 10/29/2024 2:39 PM This is or patricia is used when code status has not been discussed with the patient, or code status is otherwise unknown/unconfirmed To update the patient's code status, place a code status order. Do not modify or discontinue any currently active code status orders. Healthcare Agents on File Name Relationship Healthcare Agent [facility] gerald Michelle Maryann Leah Daughter Health Care Agent Care Teams Airport Clerk Relationship Specialty Start Date End Date Richard Urias FNP [address] [place] [address] PCP - General Family Medicine 04/26/25
--- OUTSIDE RECORDS SUMMARY | 2025-07-27 10:59 | XMS_ITS ---
Author Name [facility] Organization Unknown History of Medication Use Medication Directions Dispensed Refills Start Date End Date Stat us aspirin 81 mg chewable tablet Chew 1 tablet (81 mg total) 1 (one) time each day. active FLUoxetine (PROzac) 10 mg capsule Take 3 capsules (30 mg total) by mouth 1 (one) time each day. active lisinopril-hydroCHLOR Othiazide (PRINZIDE,ZESTORETIC) 20-25 mg per tablet Take 1 tablet by mouth 1 (one) time each day. active loratadine (CLARITIN) 10 mg tablet Take 1 tablet (10 mg total) by mouth 1 (one) time each day. active multivitamin with iron-minerals 9 mg iron/15 mL liquid Take 15 mL by mouth 1 (one) time each day. active tamsulosin (FLOMAX) 0.4 mg 24 hr capsule Take 1 capsule (0.4 mg total) by mouth at bedtime. Capsules should be taken 30 minutes following the same meal each day. active zolpidem (AMBIEN) 10 mg tablet Take 1 tablet (10 mg total) by mouth at bedtime as needed for sleep. active Problems Problem Status Onset Date Problem Type Date of Resoluti on Source Syncope active 2024-10-28 ProblemAct CT_THSFR AN Other chest pain active 2024-12-26 ProblemAct C T_THSFRAN Chest pain active 2024-12-26 ProblemAct CT_THSF RAN Care Team Organization Name Specialty Phone Email Start Date End [facility] MIKEY DELGADO Primary Care 10/07/2022
== END 2025-07-27 11:03 | disposition home or self-care (01) ==
LOC: HO.HMCH 09:50
DX: I10 Essential (primary) hypertension (principal); I50.9 Heart failure, unspecified; I25.10 Atherosclerotic heart disease of native coronary artery without angina pectoris; Z95.0 Presence of cardiac pacemaker; F32.A Depression, unspecified; N40.0 Benign prostatic hyperplasia without lower urinary tract symptoms; G47.00 Insomnia, unspecified; G47.30 Sleep apnea, unspecified; Z95.2 Presence of prosthetic heart valve

== ENCOUNTER → 2025-07-27 09:49 | Outpatient (BNVA) | payer MEDICARE, SELFPAY | DX: I11.0 Hypertensive heart disease with heart failure (principal); I50.9 Heart failure, unspecified; I25.10 Atherosclerotic heart disease of native coronary artery without angina pectoris; G47.33 Obstructive sleep apnea (adult) (pediatric); F41.9 Anxiety disorder, unspecified; F32.A Depression, unspecified; N40.0 Benign prostatic hyperplasia without lower urinary tract symptoms; R20.2 Paresthesia of skin; G47.00 Insomnia, unspecified; G47.30 Sleep apnea, unspecified; Z95.2 Presence of prosthetic heart valve; Z95.0 Presence of cardiac pacemaker | CPT/HCPCS: 96127; 99212 ==

== ENCOUNTER 2025-08-28 09:50 | Outpatient (REF) | payer MEDICARE, SELFPAY ==
[2025-08-28 10:17] LABS: MANUAL DIFF FLAG NO
[2025-08-28 10:37] LABS: Hematocrit 35.1 % (42.0-52.0); Hemoglobin 12.4 g/dl (14.0-18.0); Imm Gran Abs Auto 0.03 X10*3/uL (0.00-0.03); Imm Gran Pct Auto 0.5 % (0.0-0.4); Lymphocytes Absolute Auto 0.7 X10*3/uL (1.2-4.9); Mean Corpuscular HGB Conc 35.3 g/dl (31.0-36.0); Mean Corpuscular Hemoglobin 31.3 pg (27.0-33.0); Mean Corpuscular Volume 88.6 fL (80.0-98.0); NRBC Abs Auto 0.000 X10*3/uL (0.0-0.012); NRBC Pct Auto 0.0 /100WBC (0.0-0.2); Platelet Count 101 X10*3/uL (160-400); Red Blood Count 3.96 X10*6/uL (4.60-5.80); White Blood Count 6.0 X10*3/uL (4.8-10.8)
--- OUTSIDE RECORDS SUMMARY | 2025-08-28 10:52 | XMS_ITS | Clinical Summary ---
Author Organization [facility] Address [address] [place] [address] Phone Care Team Providers Care Railroad Dining Car Steward/Stewardess Name Role Phone AdonayShahriaralton TREJO Primary Care Provider [phone] Allergies No known active allergies Medications multivitamin [...] echocardiogram available for comparison Signed by: Serge Robledo MD on 12/27/2024 4:17 PM February 27, 2025 successful transfemoral TAVR with an Soto MANUEL 326 mm bioprosthetic valve via the right femoral artery; intraoperative complications charged home on DAPT due to recent stenting March 08, 2025 patient returned to [facility] after syncopal episode and found to have new left bundle status post leadless pacemaker inserted by Dr. Wright March 09, 2025 [facility] echocardiogram showed preserved left ventricular systolic function [...] echocardiogram available for comparison Signed by: Serge Robledo MD on 12/27/2024 4:17 PM Assessment & [...] (03/17/2025): March 08, 2025 patient returned to [facility] after syncopal episode and found to have new left bundle status post leadless pacemaker inserted by Dr. Wright Assessment & Plan (05/11/2025 12:55 PM EDT): No further syncope. Device check on 04/10/25. Assessment & Plan (03/17/2025 2:16 PM EDT): No further syncope. Device check on 04/10/25. Mixed hyperlipidemia 02/14/2025 Assessment & Plan (05/11/2025 12:55 PM EDT): November 2024 - [id number]. Continue with high dose atorvastatin and repeat lipid panel in next four to six months. Assessment & Plan (03/17/2025 2:16 PM EDT): November 2024 - [id number]. Continue with high dose atorvastatin and repeat [...] antihypertensive medication regimen as prescribed. Pituitary mass ([facility] V24) 01/11/2025 Resolved Problems Problem Noted Date Diagnosed Date Resolved Date New onset left bundle branch block (LBBB) 03/13/2025 03/16/2025 NSTEMI (non-ST elevated myoc ardial infarction) ([facility] V24, [facility] V28) 01/11/2025 0 02/14/2025 (aortic stenosis) 01/11/2025 [...] Overview (01/11/2025): Dec 23, 2019 Entered By: TIAAN CROUCH Comment: reviewed April 17, 2021 Entered [...] cpap PTSD (post-traumatic stress disorder) 11/20/2020 01/11/2025 Surgical History Surgery Date Site/Laterality Comments VASECTOMY PROCEDURE: HISTORICAL VASECTOMY COLONOSCOPY 03/12/2017 PROCEDURE: HISTORICAL COLONOSCOPY; COMMENT: normal APPENDECTOMY UMBILICAL HERNIA REPAIR EYE SURGERY Left Skin around left eye CARDIAC CATHETERIZATION DONE ON 12/28/2024 AT [facility] INDICATIONS: NSTEMI CARDIAC CATHETERIZATION DONE IN 01/25/2025 AT [facility] INDICATIONS: CAD. Medical History Medical History Date Comments Cirrhosis (CMS/HCC V24, CMS/HCC V28) 11/20/2020 DX:Cirrhosis (HCC) Anxiety 11/20/2020 DX:Anxiety Hypertension 11/20/2020 DX:Hypertension Insomnia 11/20/2020 DX:Insomnia ALLYSON (obstructive sleep apnea) 11/20/2020 DX :ALLYSON (obstructive sleep apnea) PTSD (post-traumatic stress disorder) 11/20/2020 DX:PTSD (post-traumatic stress disorder) Aortic stenosis 11/20/2020 DX:Aortic stenos is Colon polyp 11/20/2020 DX:Colon polyp Knee pain YOVANY (acute kidney injury) ([facility] V24) ALLYSON (obstructive sleep apnea) Pituitary mass (CMS/HCC V24) Thrombocytopenia (CMS/HCC V24) Cirrhosis (CMS/HCC V24, CMS/HCC V28) BPH (benign prostatic hyperplasia) Thrombocytopenia (CMS/HCC V24) Depression Anemia Family History Medical History [...] Safety Answer Date Record ed Physical Abuse Unrecognized value 10/28/2024 Verbal Abuse Unrecognized value 10/28/2024 Sex and Gender Information Value Date [...] Upcoming Encounters Date Type Department Care Team (Late st Contact Info) Description 04/16/2026 9:00 AM EDT Ancillary Procedure [facility] [address] [facility] [address] [place] [address] Health Maintenance Due Date Last Done Comments RSV Immunization Adult Patients (1 - 1-dose 75+ series) 2022 Hepatitis C Screening 10/28/2024 Medicare Annual Wellness Visit 10/28/2024 Social Influencers of Health Screening 10/28/2024 Depression Screening 11/30/2024 COVID-19 Vaccine ( season) 2025 12/03/2022, 01/02/2022, 03/02/2021, Additional history exists Influenza Vaccine (#1) 2025 Falls Risk Assessment 10/29/2025 10/29/2024 Hypertension/CHF/CAD Annual BMP Blood Test 05/08/2026 05/08/2025, 04/19/2025, 03/14/2025, Additional history exists Cholesterol Screening (Lipid Panel) 12/27/2029 12/27/2024, 12/26/2024 DTaP,Tdap,and Td Vaccines (4 - Td or Tdap) 03/07/2034 03/07/2024, 12/20/2013, 11/30/2009 Zoster Vaccines Completed 05/28/2018, 05/2018, 11/30/2011 Hepatitis A Vaccines Aged Out [...] this topic Medical Devices Implanted Type Area Cable Former Device Identifier Shelf Expiration Date Model / Serial / Lot Medt-Card Micra Av2 [id number] Implanted:09/2025 (Quantity not on file) Cardiac Pacemaker [employer] - CARDIAC RHYTH-CRDM MICRA AV2 [id number] / [id number] / Procedures Procedure Name Priority Date/Time Associated Diagnosis Comments BASIC METABOLIC PANEL Routine 05/08/2025 12:01 PM EDT LIPID PANEL WITH REFLEX TO DIRECT LDL Routine 12/27/2024 4:17 AM EST from Last 3 Months or Most Recently Relevant to Health Maintenance Results * (ABNORMAL) Basic metabolic panel (05/08/2025 12:01 [...] 05/09/2025 4:06 AM EDT Performed at: [address] [facility] [id number] Hydraulic Bull Riveter Operator: Mae Damon MD, Phone: [phone] us Ruby Nunez SURVEY RESEARCH MANAGER LAB BLOOD ORDERABLES Final R esult [facility] 1 * (ABNORMAL) Lipid panel with reflex to [...] [facility] LDL Calculated 107(H) 0 - 100 mg/dL LAB CHEMISTRY METHOD 12/27/2024 5:28 AM EST [facility] VLDL Cholesterol Charbel 36 mg/dL LAB CHEMISTRY METHOD 12/27/2024 5:28 AM EST [facility] Non HDL Chol. (LDL+VLDL) 143 <145 mg/dL LAB CHEMISTRY METHOD 12/27/2024 5:28 AM EST [facility] Chol/HDL Ratio 4.9(H) 0.0 - 4.4 LAB CHEMISTRY METHOD 12/27/2024 5:28 AM EST [facility] Blood Venous blood specimen / Unknown Venipuncture / Unknown 12/27/2024 4:17 AM EST 12/27/2024 4:49 AM EST us Franca MONSIVAIS LAB BLOOD ORDERABLES Final Resu lt [facility] [address] [place] [address], from Last 3 Months or Most Recently Relevant to Health Maintenance Insurance [employer] ADVANTAGE [facility] Advance Directives Documents on File Type Date Recorded Patient Tufter Expl mari Advance Directives and Arjun manzano Will 10/31/2024 2:27 PM * Full Code [...] Agents on File Name Relationship Healthcare Agent [employer] Communication Maryann Lynn Daughter Health Care Agent Care Teams Railroad Dining Car Steward/Stewardess Relationship Specialty Start Date End Date Richard Urias FNP [address] [place] [address] PCP - General Family Medicine 04/26/25
[2025-08-28 11:06] LABS: Alanine Aminotransferase 57 U/L (0-40); Albumin Level 4.3 g/dL (3.5-5.0); Alkaline Phosphatase 123 U/L (39-117); Anion Gap 10 (12-20); Aspartate Amino Transferase 82 U/L (5-37); Blood Urea Nitrogen 25 mg/dL (9-16); Calcium 9.6 mg/dL (8.4-10.2); Carbon Dioxide 26 mmol/L (22-29); Chloride 108 mmol/L (96-108); Cholesterol 106 mg/dL (<200); Estimated Glomerular Filt Rate > 60; HDL Cholesterol 35 mg/dL (>40); Potassium 4.3 mmol/L (3.3-5.1); Sodium 140 mmol/L (135-145); Total Protein 7.4 g/dL (6.5-8.0); Triglycerides 110 mg/dL (<150)
[2025-08-28 11:10] LABS: Appearance Urine Clear; Glucose Urine UA Negative (Negative); PH 6.0 (5.0-9.0); Specific Gravity - Urine 1.025 (1.005-1.025)
== END 2025-08-28 09:51 | disposition home or self-care (01) ==
LOC: HO.LAB 09:50
DX: Z00.00 Encounter for general adult medical examination without abnormal findings (principal); Z13.6 Encounter for screening for cardiovascular disorders; Z13.29 Encounter for screening for other suspected endocrine disorder; Z13.21 Encounter for screening for nutritional disorder
CPT/HCPCS: 36415; 80053; 80061; 81003; 82306; 84443; 85025

== ENCOUNTER 2025-10-11 10:03 | Outpatient (AMB) | payer MEDICARE, SELFPAY ==
[2025-10-11 10:14] VITALS: BP 120/68; PULSE 73; RESP 18; TEMP 36.2; O2SAT 96; BMI 40.6
--- NOTE | 2025-10-11 10:14 | MHC.PC.OV ---
Vital Signs 10/11/25 10:14 Height 5 ft 7 in Weight 259 lb BMI 40.6 BP 120/68 Blood Pressure Location Lt brachial Position Sitting Respiration 18 Pulse 73 Pulse Source Pulse Oximeter Temp 97.1 F Temp Source Temporal Artery Scan Pulse Oximetry (%) 96 Oxygen Delivery Method Room Air Intake Visit Reasons: htn/HF/cad/pacemaker Certified Pathology Assistant Required: No Accompanied by: Self / Same As Patient Allergies No Known Allergies Allergy (Verified 10/11/25 10:29) Medication List - Last Reconciled 10/11/25 by MÓNICA Farnsworth aspirin 81 mg PO DAILY atorvastatin 80 mg PO DAILY clopidogrel 75 mg PO DAILY fluoxetine 30 mg PO DAILY furosemide 20 mg PO DAILY lisinopril 10 mg PO DAILY loratadine 10 mg PO DAILY metoprolol tartrate 25 mg PO DAILY tamsulosin 0.4 mg PO BEDTIME zolpidem 10 mg PO BEDTIME Tobacco use date assessed: 10/11/25 Fall risk assessment: 1 Fall in past year Last assessed Fall Risk: 10/11/25 Dental Screening Dental Screen Date: 10/11/25 Did you have a dental visit in the last 12 months?: No Did you have a dental problem in the last 6 months where you did not have access to dental care?: No Was dental information given to patient?: No HPI htn/HF/cad/pacemaker HPI Details The patient is a 80-year-old male with past medical history of coronary artery disease status post PCI proximal RCA and LAD December 2024, severe aortic stenosis, systemic hypertension, [place] currently not on CPAP therapy, anxiety, BPH, liver cirrhosis, thrombocytopenia, pituitary mass and depression. Recent laboratory tests revealed mild anemia and a low stable platelet count, which are long-standing and not at a critical level. The patient's BUN was slightly elevated, and fasting glucose was 106. His cholesterol panel was generally good while on atorvastatin, but his HDL was low at 35. He has a history of fatty liver, but his liver enzymes are not critically high. The patient reports new-onset numbness in the first three fingers of his right hand, which began a couple of months ago after operating a machine. The symptom has not improved and is described as a feeling of swelling, which affects his ability to perform fine motor tasks like zipping a zipper. The patient also has a history of chronic, ongoing low back pain, for which he has been taking Aleve at night to help with sleep. The pain does not radiate down his legs, and he has not had any prior imaging for this condition. His medical history is notable for coronary artery disease, for which he had a stent placed via his right wrist. He also was seen by urology for urinary incontinence, reports that he had a bladder ultrasound that was normal. [facility] and he continues on flomax. The patient also has a history of cardiovascular interventions, including a TAVR and 2 stents placement in January. Patient return back to [facility] for episode of syncope and was found to be in left bundle branch block and a pacemaker was inserted by Dr. Wright on March 08 2025. [facility] Medical History (Updated 10/11/25 @ 12:32 by MÓNICA Farnsworth) Pituitary mass Thrombocytopenia Liver cirrhosis HTN (hypertension) Insomnia Sleep apnea Depression Bradycardia Surgical History S/P TAVR (transcatheter aortic valve replacement) Family History Father Myocardial infarction Social History Housing: House Patient Tobacco Use Status: Never used Tobacco e-Cigarette/Vaping Use: Never Used service: Yes Current occupational status: retired and disabled Cognitive needs: No Hearing needs: No Vision needs: No Questionnaire PHQ-9 Over the last 2 weeks, how often have you been bothered by any of the following problems? Depression Screening Interpretation: Negative Depression Screening Done: Yes Source: Developed by Drs. Carlos Chester, Annemarie Whitt, Sebastien Vazquez and colleagues, with an educational christine from [employer] Thrive Questionnaire Date Thrive assessed: 04/26/25 I am a: Patient What is your living situation today?: I have a steady place to live Within the past 12 months, did the food you bought not last and you didn't have the money to get more?: Never true Within the past 12 months, did you worry whether your food would run out before you got money to buy more?: I choose not to answer this question Do you have trouble paying for medicines?: No Do you have trouble getting transportation to medical appointments?: No Do you have trouble paying your heating and electricity bill?: No Do you have trouble taking care of your child, family member or friend?: No Do you have trouble with day-to-day activities such as bathing, preparing meals, shopping, managing finances, etc.?: No Are you currently unemployed and looking for a job?: No Are you interested in more education?: No Please select the resources that you would like help with: None Currently or been in a relationship where the following occur: No concerns reported THRIVE Score: 0 AUDIT C Alcohol Use Questionnaire (AUDIT-C) 1. How often do you have a drink containing alcohol?: Never Total Score: 0 MARQUISE-7 AMB Questionnaire MARQUISE-7 Date MARQUISE - 7 assessed: 07/27/25 Feeling nervous, anxious, or on edge: 0 = Not at all Not being able to stop or control worryin = Not at all Worrying too much about different things: 0 = Not at all Trouble relaxin = Not at all Being so restless that it is hard to sit still: 0 = Not at all Becoming easily annoyed or irritable: 0 = Not at all Feeling afraid as if something awful might happen: 0 = Not at all Total MARQUISE-7 score (0-4 normal; 5-9 mild; 10-14 moderate; 15-21 severe): 0 Source: Developed by Drs. Carlos Chester, Annemarie Whitt, Sebastien Vazquez and colleagues, with an educational christine from [employer] Review of Systems Const Denies headache(s) Eyes Denies loss of vision ENT Denies vertigo, Denies dizziness, Denies headache(s) and Denies sore throat Card Denies chest pain, Denies leg edema, Denies lightheadedness and Reports dyspnea on exertion (When going upstairs with laundry-has improved) Resp Denies cough, Denies hemoptysis, Reports dyspnea on exertion (When going upstairs with laundry-has improved) and Denies wheezing GI Denies abdominal pain, Denies melena, Denies constipation, Denies diarrhea and Denies vomiting Denies dysuria, Denies urinary frequency and Denies urinary urgency Musc Denies arthralgias, Denies joint swelling, Denies numbness and Reports tingling (To fingers in bilateral hands) Neuro Denies Abnormal speech present, Denies behavioral changes, Denies vertigo, Denies dizziness, Denies headache(s), Denies loss of vision, Denies memory loss, Denies numbness and Reports tingling (To fingers in bilateral hands) Psych Denies anxiety, Denies behavioral changes, Reports depression, Denies memory loss, Denies panic attacks and Reports other (Insomnia) Greg/Lymph Denies easy bleeding and Denies easy bruising Aller/Immun Denies wheezing Physical exam (Primary Care) Vital Signs: Last Vital Signs Temp 97.1 F 10/11/25 10:14 Pulse 73 10/11/25 10:14 Resp 18 10/11/25 10:14 BP 120/68 10/11/25 10:14 Pulse Ox 96 10/11/25 10:14 Oxygen Delivery Method Room Air 10/11/25 10:14 BMI result Body Mass Index 40.6 Tobacco/Smoking Status: Tobacco use Status Tobacco use date assessed 10/11/25 10/11/25 10:25 Patient Tobacco Use Status Never used Tobacco 10/11/25 10:25 e-Cigarette/Vaping Use Never Used 10/11/25 10:25 Depression Screening Interpretation: Negative Thrive Assessment: Date of Thrive Assessment Date Thrive assessed 04/26/25 10/11/25 10:25 Currently or been in a relationship where the following occur: No concerns reported Const General: healthy appearing, no acute distress, alert and awake Nutritional Appearance: well nourished Orientation/consciousness: oriented to person, oriented to place and oriented to time HENMT Ears: TM's normal bilaterally General nose exam: Normal nasal mucous membranes and turbinates present Eyes Conjunctivae: conjunctivae normal Sclerae: sclerae normal Pupils: Equal, round and reactive pupils present Neck Neck: Yes no lymphadenopathy and Yes no JVD Thyroid: Thyroid normal Carotids: no bruits Resp Effort & Inspection: normal respiratory effort and not tachypneic Auscultation: no crackles, no rales, no rhonchi and no wheezes Cardio Rate: regular rate Rhythm: regular rhythm Heart sounds: no murmurs and normal S1 and S2 GI Palpation (GI): Soft to palpation, nontender, no hepatomegaly and no splenomegaly Auscultation: normal bowel sounds Back/Spine/Pelvis Thoracic/Lumbar Spine: No lumbar spinal tenderness Skin General skin exam: no rashes or lesions noted and dry skin Neuro General: oriented to person, oriented to place and oriented to time Cranial nerves: Yes Equal, round and reactive pupils present Speech: No Abnormal speech present Gait exam (Neuro): Normal gait present Motor exam (neuro): no tremor noted Extrem Right upper extremity: full ROM and Extremity exam: right hand Details: normal to inspection Left upper extremity: full ROM Right lower extremity: full ROM; no edema Left lower extremity: full ROM; no edema Psych Mental Status: mental status grossly normal Speech and movement: Normal speech and movement present Affect: normal affect Attitude: cooperative Thought process: Normal thought process present Results Reviewed Results Reviewed: Laboratory Tests 08/28/25 08/28/25 10:12 10:15 WBC 6.0 RBC 3.96 L Hgb 12.4 L Hct 35.1 L MCV 88.6 MCH 31.3 MCHC 35.3 RDW 13.7 Plt Count 101 L Sodium 140 Potassium 4.3 Chloride 108 Carbon Dioxide 26 Anion Gap 10 L BUN 25 H Creatinine 0.79 Estimated GFR > 60 Fasting Glucose 116 H Calcium 9.6 Total Bilirubin 1.5 H AST 82 H ALT 57 H Alkaline Phosphatase 123 H Total Protein 7.4 Albumin 4.3 Triglycerides 110 Cholesterol 106 LDL Cholesterol, Calc 49 HDL Cholesterol 35 L 25-OH Vitamin D Total 36.5 TSH 1.42 Urine Color Yellow Urine Appearance Clear Urine pH 6.0 Ur Specific [place] 1.025 Urine Protein Negative Urine Glucose (UA) Negative Urine Ketones Negative Urine Blood Negative Urine Nitrite Negative Ur Leukocyte Esterase Negative Coding Level of Care Code Est Pt Level 4 (13108) Diagnoses Hypertension, unspecified type I10 Hypertension type: unspecified Heart failure, unspecified HF chronicity, unspecified heart failure type I50.9 Heart failure type: unspecified Heart failure chronicity: unspecified Coronary artery disease involving [place] heart without angina pectoris, unspecified vessel or lesion type I25.10 Coronary Disease-Associated Artery/Lesion type: unspecified vessel or lesion type [place] vs. transplanted heart: [place] heart Associated angina: without angina Pacemaker Z95.0 Depression, unspecified depression type F32.A Depression Type: unspecified Benign prostatic hyperplasia, unspecified whether lower urinary tract symptoms present N40.0 Lower urinary tract symptom presence: unspecified whether lower urinary tract symptoms present Insomnia, unspecified type G47.00 Insomnia type: unspecified Sleep apnea, unspecified type G47.30 Sleep apnea type: unspecified type S/P TAVR (transcatheter aortic valve replacement) Z95.2 Numbness and tingling in right hand R20.0; R20.2 Urge incontinence of urine N39.41 Urinary Incontinence type: urge incontinence Bilateral low back pain without sciatica, unspecified chronicity M54.50 Chronicity: unspecified Back pain laterality: bilateral Sciatica presence: without sciatica Anemia, unspecified type D64.9 Anemia type: unspecified type Thrombocytopenia D69.6 Hyperlipidemia, unspecified hyperlipidemia type E78.5 Hyperlipidemia type: unspecified Cirrhosis of liver without ascites, unspecified hepatic cirrhosis type K74.60 Hepatic cirrhosis type: unspecified hepatic cirrhosis Ascites presence: without ascites Time Spent (min) 37 Assessment & Plan Assessment & Plan (1) HTN (hypertension): Code(s): I10 - Essential (primary) hypertension Category: Medical Qualifiers: Hypertension type: unspecified Qualified Code(s): I10 - Essential (primary) hypertension Plan: Blood pressure 120/68 within goal Reinforced low salt diet Continue metoprolol tartrate 25 mg, lisinopril 10 mg, furosemide 20 mg daily (2) Heart failure: Code(s): I50.9 - Heart failure, unspecified Category: Medical Qualifiers: Heart failure type: unspecified Heart failure chronicity: unspecified Qualified Code(s): I50.9 - Heart failure, unspecified Plan: Denies shortness of breath. No edema on exam. Continue furosemide 20 mg daily (3) CAD (coronary artery disease): Code(s): I25.10 - Atherosclerotic heart disease of [place] coronary artery without angina pectoris Category: Medical Qualifiers: Coronary Disease-Associated Artery/Lesion type: unspecified vessel or lesion type [place] vs. transplanted heart: [place] heart Associated angina: without angina Qualified Code(s): I25.10 - Atherosclerotic heart disease of [place] coronary artery without angina pectoris Plan: Echo on 12/27/2024. Shows normal left ventricular size cavity, mildly decreased in left ventricular systolic function with an ejection fraction of 45-50%. No evidence of diastolic dysfunction and elevated left atrial filling pressure. Mild LV global hypokinesis is present, left ventricle mild concentric hypertrophy, aortic valve demonstrates [id number] aortic stenosis with a VTI ratio 0.21 and a mean gradient of 42 mm Hg, mitral valve with moderately thickened leaflets. Mild functional mitral stenosis 4 mm Hg mean gradient. On 03/09/2025 [facility] echocardiogram showed preserved left ventricular systolic function 60-65% with grade 2 moderate diastolic dysfunction, severe left atrial enlargement. Patient denies chest pain, reports shortness of breath with carrying laundry upstairs. This is short-lived and has been improving. Continue aspirin 81 mg daily, atorvastatin 80 mg daily, and clopidogrel 75 mg daily along with strict blood pressure control. (4) Pacemaker: Code(s): Z95.0 - Presence of cardiac pacemaker Category: Medical Plan: March 08, 2025 patient returned to [facility] after syncopal episode and found to have new left bundle status post leadless pacemaker inserted by Dr. Wright. On 03/09/2025 [facility] echocardiogram showed preserved left ventricular systolic function 60-65% with grade 2 moderate diastolic dysfunction, severe left atrial enlargement. (5) Depression: Code(s): F32.A - Depression, unspecified Category: Medical Qualifiers: Depression Type: unspecified Qualified Code(s): F32.A - Depression, unspecified Plan: Encouraged CBT Continue fluoxetine 30 mg daily Denies SI/HI Follow up with Psychiatry as scheduled(Per[facility] Kelley at the [facility]) (6) BPH (benign prostatic hyperplasia): Code(s): N40.0 - Benign prostatic hyperplasia without lower urinary tract symptoms Category: Medical Qualifiers: Lower urinary tract symptom presence: unspecified whether lower urinary tract symptoms present Qualified Code(s): N40.0 - Benign prostatic hyperplasia without lower urinary tract symptoms Plan: Continue tamsulosin 0.4 mg at bedtime (7) Insomnia: Code(s): G47.00 - Insomnia, unspecified Category: Medical Qualifiers: Insomnia type: unspecified Qualified Code(s): G47.00 - Insomnia, unspecified Plan: Sleep hygiene: Exercise regularly, but not within 4 hour of bedtime. Limit fluid intake and avoid large meals in the evening hours. Limit overall caffeine, tobacco, and alcohol intake; no night cap. Maintain a regular sleep-wake cycle without naps in the daytime. Lie down to sleep only when feeling sleepy; leave the bed if unable to fall asleep within 20 minutes; stay in bed for only the hours actually sleeping(but not less than 5 hour in 24 hours). Continue zolpidem 10 mg at bedtime (8) Sleep apnea: Code(s): G47.30 - Sleep apnea, unspecified Category: Medical Qualifiers: Sleep apnea type: unspecified type Qualified Code(s): G47.30 - Sleep apnea, unspecified Plan: History of sleep apnea but unable to tolerate CPAP machine. Reports that his sleeping has gotten better and he is feeling less tired upon awakening. (9) S/P TAVR (transcatheter aortic valve replacement): Comment: On February 27 2025 successful transfemoral TAVR with an [employer]qui 326 mm bioprosthetic valve via the right femoral artery Code(s): Z95.2 - Presence of prosthetic heart valve Category: Surgical Plan: Status post TAVR-mild shortness of breath while carrying laundry up the stairs but notes that this is not limiting for him in his improved from before. (10) Numbness and tingling in right hand: Code(s): R20.0 - Anesthesia of skin; R20.2 - Paresthesia of skin Category: Medical Plan: The patient's complaint of numbness in the first three fingers of his right hand, which is worse in the middle finger, is concerning for carpal tunnel syndrome, especially given the history of onset after using a machine. To confirm the diagnosis, an EMG and nerve conduction study of the right upper extremity will be ordered. The patient will first check with his providers at the [facility] to see if this testing can be completed there. (11) Urinary incontinence: Code(s): R32 - Unspecified urinary incontinence Category: Medical Qualifiers: Urinary Incontinence type: urge incontinence Qualified Code(s): N39.41 - Urge incontinence Plan: Reports longstanding urge incontinence. He was seen by urology and a bladder ultrasound was completed without any concerning findings, per patient. Reports [facility], denies any other urinary symptoms. Continue flomax 0.4 mg at bedtime. (12) Low back pain: Code(s): M54.50 - Low back pain, unspecified Category: Medical Qualifiers: Chronicity: unspecified Back pain laterality: bilateral Sciatica presence: without sciatica Qualified Code(s): M54.50 - Low back pain, unspecified Plan: The patient has ongoing low back pain without radiation. A lumbar spine x-ray will be ordered for further evaluation. [facility] about [facility]. He was advised on the appropriate use of NSAIDs like Aleve, cautioning against overuse due to potential kidney effects. (13) Anemia: Code(s): D64.9 - Anemia, unspecified Category: Medical Qualifiers: Anemia type: unspecified type Qualified Code(s): D64.9 - Anemia, unspecified Plan: Mild anemia on blood work. The patient isn't sure if this is his baseline. We will continue to monitor (14) Thrombocytopenia: Code(s): D69.6 - Thrombocytopenia, unspecified Category: Medical Plan: History of thrombocytopenia. PLT 101, stable, will continue to monitor. (15) HLD (hyperlipidemia): Code(s): E78.5 - Hyperlipidemia, unspecified Category: Medical Qualifiers: Hyperlipidemia type: unspecified Qualified Code(s): E78.5 - Hyperlipidemia, unspecified Plan: Tri 110/ total chol 106/ ldl 49/ hdl 35 Discussed lifestyle modifications including dietary changes and physical activity Continue atorvastatin 80 mg daily We will recheck lipid panel in 4 months (16) Liver cirrhosis: Code(s): K74.60 - Unspecified cirrhosis of liver Category: Medical Qualifiers: Hepatic cirrhosis type: unspecified hepatic cirrhosis Ascites presence: without ascites Qualified Code(s): K74.60 - Unspecified cirrhosis of liver Plan: AST 82, ALT 57, alkaline phosphatase 123 Avoid alcohol, limit medications containing acetaminophen or Tylenol, fatty foods Orders: Orders Complete Blood Count Auto Diff 3 Months F32.A - Depression, unspecified, G47.00 - Insomnia, unspecified, I10 - Essential (primary) hypertension, I25.10 - Atherosclerotic heart disease of [place] coronary artery without angina pectoris, I50.9 - Heart failure, unspecified, N40.0 - Benign prostatic hyperplasia without lower urinary tract symptoms, Z95.0 - Presence of cardiac pacemaker, Z95.2 - Presence of prosthetic heart valve TSH reflex Free T4 3 Months F32.A - Depression, unspecified, G47.00 - Insomnia, unspecified, I10 - Essential (primary) hypertension, I25.10 - Atherosclerotic heart disease of [place] coronary artery without angina pectoris, I50.9 - Heart failure, unspecified, N40.0 - Benign prostatic hyperplasia without lower urinary tract symptoms, Z95.0 - Presence of cardiac pacemaker, Z95.2 - Presence of prosthetic heart valve Vitamin D 25-OH Total 3 Months F32.A - Depression, unspecified, G47.00 - Insomnia, unspecified, I10 - Essential (primary) hypertension, I25.10 - Atherosclerotic heart disease of [place] coronary artery without angina pectoris, I50.9 - Heart failure, unspecified, N40.0 - Benign prostatic hyperplasia without lower urinary tract symptoms, Z95.0 - Presence of cardiac pacemaker, Z95.2 - Presence of prosthetic heart valve Hemoglobin A1c 3 Months F32.A - Depression, unspecified, G47.00 - Insomnia, unspecified, I10 - Essential (primary) hypertension, I25.10 - Atherosclerotic heart disease of [place] coronary artery without angina pectoris, I50.9 - Heart failure, unspecified, N40.0 - Benign prostatic hyperplasia without lower urinary tract symptoms, Z95.0 - Presence of cardiac pacemaker, Z95.2 - Presence of prosthetic heart valve Comprehensive Alvin. Panel Fast 3 Months F32.A - Depression, unspecified, G47.00 - Insomnia, unspecified, I10 - Essential (primary) hypertension, I25.10 - Atherosclerotic heart disease of [place] coronary artery without angina pectoris, I50.9 - Heart failure, unspecified, N40.0 - Benign prostatic hyperplasia without lower urinary tract symptoms, Z95.0 - Presence of cardiac pacemaker, Z95.2 - Presence of prosthetic heart valve Lipid Panel 3 Months F32.A - Depression, unspecified, G47.00 - Insomnia, unspecified, I10 - Essential (primary) hypertension, I25.10 - Atherosclerotic heart disease of [place] coronary artery without angina pectoris, I50.9 - Heart failure, unspecified, N40.0 - Benign prostatic hyperplasia without lower urinary tract symptoms, Z95.0 - Presence of cardiac pacemaker, Z95.2 - Presence of prosthetic heart valve UA CC w/rflx Micro + Cult 3 Months F32.A - Depression, unspecified, G47.00 - Insomnia, unspecified, I10 - Essential (primary) hypertension, I25.10 - Atherosclerotic heart disease of [place] coronary artery without angina pectoris, I50.9 - Heart failure, unspecified, N40.0 - Benign prostatic hyperplasia without lower urinary tract symptoms, Z95.0 - Presence of cardiac pacemaker, Z95.2 - Presence of prosthetic heart valve
--- OUTSIDE RECORDS SUMMARY | 2025-10-11 11:46 | XMS_ITS | Clinical Summary ---
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 Wright March 09, 2025 [facility] echocardiogram showed preserved left ventricular systolic [...] (03/17/2025): March 08, 2025 patient returned to [facility] after syncopal episode and found to have new left bundle status post leadless pacemaker inserted by Dr. Wright Assessment & Plan (05/11/2025 12:55 PM EDT): No further syncope. Device check on 04/10/25. Assessment & Plan (03/17/2025 2:16 PM EDT): No further syncope. Device check on 04/10/25. Mixed hyperlipidemia 02/14/2025 Assessment & Plan (05/11/2025 12:55 PM EDT): November 2024 - [id number]. Continue with high dose atorvastatin and repeat lipid panel in next four to six months. Assessment & Plan (03/17/2025 2:16 PM EDT): November 2024 - [id number]. Continue with high dose atorvastatin and repeat [...] antihypertensive medication regimen as prescribed. Pituitary mass ([facility] V24) 01/11/2025 Resolved Problems Problem Noted Date Diagnosed Date Resolved Date New onset left bundle branch block (LBBB) 03/13/2025 03/16/2025 NSTEMI (non-ST elevated myoc ardial infarction) ([facility] V24, [facility] V28) 01/11/2025 0 02/14/2025 (aortic stenosis) [...] Entered By: TIANA CROUCH Comment: reviewed Cirrhosis ([facility]/HCC V24, [facility]/HCC V28) 11/20/2020 01/11/2025 Colon polyp 11/20/2020 01/11/2025 Insomnia 11/20/2020 01/11/2025 Overview (01/11/2025): Dec 23, 2019 Entered By: TIANA CROUCH Comment: reviewed April 17, 2021 Entered By: TIANA CROUCH Comment: reviewed ALLYSON (obstructive sleep apnea) 11/20/2020 01/11/2025 Overview (01/11/2025): Aug 29, 2024 Entered By: TAO CEE Comment: doesn't wear cpap PTSD (post-traumatic stress disorder) 11/20/2020 01/11/2025 Encounters Date Type Department Care Team Description 08/30/2025 1:30 PM EDT Ancillary Procedure [facility] - [address] [facility] [address] [place] [address] from Last 3 Months Surgical History Surgery Date Site/Laterality Comments VASECTOMY PROCEDURE: HISTORICAL VASECTOMY COLONOSCOPY 03/12/2017 PROCEDURE: HISTORICAL COLONOSCOPY; COMMENT: normal APPENDECTOMY UMBILICAL HERNIA REPAIR EYE SURGERY Left Skin around left eye CARDIAC CATHETERIZATION DONE ON 12/28/2024 AT [facility] INDICATIONS: NSTEMI CARDIAC CATHETERIZATION DONE IN 01/25/2025 AT [facility] W INDICATIONS: CAD. Medical History Medical History Date Comments Cirrhosis (CMS/HCC V24, CMS/HCC V28) 11/20/2020 DX:Cirrhosis (HCC) Anxiety 11/20/2020 DX:Anxiety Hypertension 11/20/2020 DX:Hypertension Insomnia 11/20/2020 DX:Insomnia ALLYSON (obstructive sleep apnea) 11/20/2020 DX :ALLYSON (obstructive sleep apnea) PTSD (post-traumatic stress disorder) 11/20/2020 DX:PTSD (post-traumatic stress disorder) Aortic stenosis 11/20/2020 DX:Aortic stenos is Colon polyp 11/20/2020 DX:Colon polyp Knee pain YOVANY (acute kidney injury) ([facility] V24) ALLYSON (obstructive sleep apnea) Pituitary mass ([facility] V24) Thrombocytopenia ([facility] V24) Cirrhosis ([facility] V24, [facility] V28) BPH (benign prostatic hyperplasia) Thrombocytopenia ([facility] V24) Depression Anemia Family History Medical History [...] Care Team (Late st Contact Info) Description 01/24/2026 7:50 AM EST Office Visit [facility] [address] [place] [phone] Tyler Valentin MD [address] [place] [address] [address] [place] [phone] 04/16/2026 9:00 AM EDT Ancillary Procedure [facility] - [address] [place] [address] Health Maintenance Due Date Last [...] this topic Medical Devices Implanted Type Area Hop Trainer Device Identifier Shelf Expiration Date Model / Serial / Lot Medt-Card Micra Av2 [id number] Implanted:09/2025 (Quantity not on file) Cardiac Pacemaker [employer] - CARDIAC RHYTH-CRDM MICRA AV2 [id number] / [id number] / Medt-Card [id number] Implanted:09/2025 (Quantity not on file) Cardiac Pacemaker [employer] - CARDIAC RHYTH-CRDM [id number] / [id number] / Procedures Procedure Name Priority Date/Time Associated Diagnosis Comments CARDIAC DEVICE CHECK- REMOTE- MURJ Routine 08/30/2025 1:25 PM EDT BASIC METABOLIC PANEL Routine 05/08/2025 12:01 PM EDT LIPID PANEL WITH REFLEX TO DIRECT LDL Routine 12/27/2024 4:17 AM EST from Last 3 Months or Most Recently Relevant to Health Maintenance Results * Cardiac device check - Remote- MURJ (08/30/2025 1:25 PM EDT) Date Time Interrogation Session [id number] CV DEVICE CHECK Type Interrogation Session Remote CV DEVICE CHECK Implantable Pulse Generator Hop Trainer MDT CV DEVICE CHECK Implantable Pulse Generator Type [id number] CV DEVICE CHECK Implantable Pulse Generator Model [id number] CV DEVICE CHECK Implantable Pulse Generator Serial Number [id number] CV DEVICE CHECK Implantable Pulse Generator Implant Date 20250310 CV DEVICE CHECK Battery Remaining Longevity 120.0 CV DEVICE CHECK Battery Voltage 3.120 CV D EVICE CHECK Battery OTOLARYNGOLOGY REP Trigger 2.580 CV DEVICE CHECK Nikita Statistic RV Percent Paced 1.13 CV DEVICE CHECK Lead Channel Sensing Intrinsic Amplitude 2.900 CV DEVICE CHECK Lead Channel Setting Sensing Sensitivity 2.00 CV DEVICE CHECK Lead Channel Impedance Value 500 CV DEVICE CHECK Lead Channel Pacing Threshold Amplitude 0.500 CV DEVICE CHECK Lead Channel Pacing Threshold Pulse Width 0.2 CV DEVICE CHECK Lead Channel RV Pacing Threshold Date 2025-08-24 CV DEVICE CHECK Lead Channel Setting Pacing Amplitude 1.000 CV DEVICE CHECK Lead Channel Setting Pacing Pulse Width 0.2 CV DEVICE CHECK Nikita Setting Mode (NBG Code) VDD CV DEVICE CHECK Nikita Setting Lower Rate Limit 50 CV DEVICE CHECK Nikita Setting Maximum Tracking Rate 105 CV DEVICE CHECK Nikita Setting Maximum Sensor Rate 120 CV DEVICE CHECK Nikita Setting BRENDA Delay 20 CV DEVICE CHECK Date of Service 2025-08-29 CV DEVICE CHECK Anatomical Region Laterality Modality Device Interroga tion 08/24/2025 12:3 1 PM EDT Impressions 08/29/2025 12:25 PM EDT Normal Remote: No Events * Normal Device Function * Alerts or events: None * Battery: , 10.00 yrs * Sensing, impedance and thresholds reviewed * Programmed parameters reviewed * Presenting rhythm reviewed * Heart Rate Histograms reviewed * No significant changes noted Narrative Procedure Note Eileen Wright MD - 08/30/2025 IMPRESSION: Normal Remote: No Events * Normal Device Function * Alerts or events: None * Battery: , 10.00 yrs * Sensing, impedance and thresholds reviewed * Programmed parameters reviewed * Presenting rhythm reviewed * Heart Rate Histograms reviewed * No significant changes noted Eileen Wright MD CV IMPLANTABLE CARDIAC DEVICE PROCEDURES Final Result * (ABNORMAL) Basic metabolic panel (05/08/2025 12:01 PM EDT) [facility] Glucose 96 70 - 99 mg/dL [facility] [...] - 05/09/2025 4:06 AM EDT Performed at: - [facility] [address] [id number] [employer] Carman: Mae Damon MD, Phone: [phone] us Ruby Nunez [employer] LAB BLOOD ORDERABLES Final R esult [facility] 1 * (ABNORMAL) Lipid panel with reflex to direct LDL (12/27/2024 4:17 AM EST) Cholesterol 180 0 - 200 mg/dL LAB CHEMISTRY METHOD 12/27/2024 5:28 AM EST [facility] Triglycerides 180(H) 0 - 150 mg/dL LAB CHEMISTRY METHOD 12/27/2024 5:28 AM EST [facility] HDL 37(L) >=40 mg/dL LAB CHEMISTRY METHOD 12/27/2024 5:28 AM EST [facility] LDL Calculated 107(H) 0 - 100 mg/dL LAB CHEMISTRY METHOD 12/27/2024 5:28 AM EST [facility] VLDL Cholesterol Charbel 36 mg/dL LAB CHEMISTRY METHOD 12/27/2024 5:28 AM EST [facility] Non HDL Chol. (LDL+VLDL) 143 <145 mg/dL LAB CHEMISTRY METHOD 12/27/2024 5:28 AM EST [facility] Chol/HDL Ratio 4.9(H) 0.0 - 4.4 LAB CHEMISTRY METHOD 12/27/2024 5:28 AM EST [facility] Blood Venous blood specimen / Unknown Venipuncture / Unknown 12/27/2024 4:17 AM EST 12/27/2024 4:49 AM EST us Franca MONSIVAIS LAB BLOOD ORDERABLES Final Resu lt [facility] [address] [place] [address], [place] [phone] from Last 3 Months or Most Recently Relevant to Health Maintenance Insurance [employer] [facility] Advance Directives Documents on File Type Date Recorded Patient Building Specialist Expl anation Advance Directives and Livin g [...] Agents on File Name Relationship Healthcare Agent Relationshi p Communication Maryann Lynn Daughter Health Care Agent Care Teams Battery Loader Relationship Specialty Start Date End Date Richard Urias FNP [address] [place] [id number] PCP - General Family Medicine 04/26/25
== END 2025-10-11 10:55 | disposition home or self-care (01) ==
LOC: HO.HMCH 10:04
DX: I10 Essential (primary) hypertension (principal); I50.9 Heart failure, unspecified; I25.10 Atherosclerotic heart disease of native coronary artery without angina pectoris; Z95.0 Presence of cardiac pacemaker; F32.A Depression, unspecified; N40.0 Benign prostatic hyperplasia without lower urinary tract symptoms; G47.00 Insomnia, unspecified; G47.30 Sleep apnea, unspecified; Z95.2 Presence of prosthetic heart valve; R20.0 Anesthesia of skin; K74.60 Unspecified cirrhosis of liver; R20.2 Paresthesia of skin; N39.41 Urge incontinence; M54.50 Low back pain, unspecified; D64.9 Anemia, unspecified; D69.6 Thrombocytopenia, unspecified; E78.5 Hyperlipidemia, unspecified

== ENCOUNTER → 2025-10-11 10:03 | Outpatient (BNVA) | payer MEDICARE, SELFPAY | DX: I11.0 Hypertensive heart disease with heart failure (principal); I50.9 Heart failure, unspecified; I25.10 Atherosclerotic heart disease of native coronary artery without angina pectoris; G47.33 Obstructive sleep apnea (adult) (pediatric); R20.0 Anesthesia of skin; M54.50 Low back pain, unspecified; F32.A Depression, unspecified; N40.0 Benign prostatic hyperplasia without lower urinary tract symptoms; G47.00 Insomnia, unspecified; G47.30 Sleep apnea, unspecified; R20.2 Paresthesia of skin; N39.41 Urge incontinence; D69.6 Thrombocytopenia, unspecified; E78.5 Hyperlipidemia, unspecified; K74.60 Unspecified cirrhosis of liver; Z95.0 Presence of cardiac pacemaker; Z95.2 Presence of prosthetic heart valve | CPT/HCPCS: 99212 ==